=== PATIENT | female | born 1980 | race African-American/Black ===

== ENCOUNTER 2020-08-17 17:44 | Inpatient (IN) | payer OTHER ==
--- OUTSIDE RECORDS SUMMARY | 2020-08-17 20:03 | XMS ---
:1980 Author Organization [facility] Care Team Providers Name Role Phone NOREEN RAMOS Unavailable Unavailable Khloe De Luna Unavailable AMOS SILVA, WELLINGTON Unavailable AMOS SILVA, WELLINGTON Unavailable AMOS SILVA, WELLINGTON Unavailable AMOS SILVA, WELLINGTON Unavailable AMOS SILVA, WELLINGTON Unavailable OYEKOLA 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, MOBOLAJI Unavailable OYEKOLA 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, MOBOLAJI Unavailable OYEKOLA 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, MOBOLAJI Unavailable Marianne Taveras Unavailable AGYEPONG 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 Unavailable AGYEPONG 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 Unavailable Amelmah Unavailable Unavailable Amelmah Unavailable Unavailable Amelmah Unavailable Unavailable Amelmah Unavailable Unavailable GHULAM CNM Unavailable GHULAM CNM Unavailable CHRISTINA 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 Unavailable CHRISTINA 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 Unavailable MEAGHAN DDS Unavailable + ROSI DMD Unavailable + PETE MD Unavailable + PETE MD Unavailable + PETE MD Unavailable + JACK CNM Unavailable + DUANE 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 Unavailable + DUANE 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 Unavailable + BUCK MD Unavailable + PETE DIAZ Unavailable Unavailable Burrows Unavailable + JORDYN SHEA HY Unavailable + Re-disclosure Warning The records that you are about to access may contain information from federally- assisted alcohol or drug abuse programs. If such information is present, then the following federally mandated warning applies: This information has been disclosed to you from records protected by federal confidentiality rules (42 CFR part 2). The federal rules prohibit you from making any further disclosure of this information unless further disclosure is expressly permitted by the written consent of the person to whom it pertains or as otherwise permitted by 42 CFR part 2. A general authorization for the release of medical or other information is NOT sufficient for this purpose. The Federal rules restrict any use of the information to criminally investigate or prosecute any alcohol or drug abuse patient.The records that you are about to access may contain highly sensitive health information, the redisclosure of which is protected by Article 27-F of the [facility] Public Health law. If you continue you may haveaccess to information: Regarding HIV / AIDS; Provided by facilities licensed or operated by the [facility] Office of Mental Health; or Provided by the [facility] Office for People With Developmental Disabilities. If such information is present, then the following [facility] mandated warning applies: This information has been disclosed to you from confidential records which are protected by state law. State law prohibits you from making any further disclosure of this information without the specific written consent of the person to whom it pertains, or as otherwise permitted by law. Any unauthorized further disclosure in violation of state law may result in a fine or usp sentence or both. A general authorization for the release of medical or other information is NOT sufficient authorization for further disclosure. Allergies and Adverse Reactions Type Description Substance Reaction Status Data Source(s ) Allergy to No Known Allergies No known GREENW AY ([facility] substance allergies [facility] ) Allergy to No Known Allergies No known GREENW AY ([facility] substance allergies [facility] ([facility] ) Allergy to No Known Allergies No known GREENW AY ([facility] substance allergies [facility] ) Allergy to No Known Allergies No known GREENW AY ([facility] substance allergies [facility] ([facility] ) Allergy to No Known Allergies No known GREENW AY ([facility] substance allergies [facility] ) Allergy to No Known Allergies No known GREENW AY ([facility] substance allergies [facility] ([facility] ) Allergy to No Known Allergies No known GREENW AY ([facility] substance allergies [facility] ) Allergy to No Known Allergies No known GREENW AY ([facility] substance allergies [facility] ([facility] ) Allergy to No Known Allergies No known GREENW AY ([facility] substance allergies [facility] ([facility] ) Allergy to No Known Allergies No known GREENW AY ([facility] substance allergies [facility] ([facility] ) Allergy to No Known Allergies No known GREENW AY ([facility] substance allergies [facility] ([facility] ) Allergy to No Known Allergies No known GREENW AY ([facility] substance allergies [facility] ) Encounters Encounter Providers Location Date Indications Data Source(s ) Outpatient<td Attender: Douglas OverweightRisk: GREENW AY ([facility] ID="encounterT [facility] 0 Menstrual [place] ypeDescription [facility] 09:45:00 Irregularities Ne ighborhood ID0">[place]ALK[place]</ AM [facility] ter) td><td>MOBOLA I OYEKONJ [address] [facility]</td><td>Yo 10:18:06 nkers [facility]</td><td >12/30/2019</t d><td><content ID="encounterD iagnosisID0-0" >Risk: Menstrual Irregularities </content>, <content ID="encounterD iagnosisID0-1" >Overweight</c ontent></td> Overweight Risk: Menstrual Irregularities Outpatient<td Attender: Douglas 11/09/2019 VEE ID="encounterTypeDescriptionID2">DENTAL [facility] 10:00:0 0 AM (Susan Scherer RE-CALL VISIT</td><td>[facility] DDS Health EST - Neighborhood DDS</td><td>[facility] 11/09/2019 Health Center</td><td>11/09/2019</td><td></td> 11:59:0 0 PM Center) EST Outpatient<td Attender: Douglas 11/09/2019 VEE ID="enc[facility]TypeDescriptionID1[facility] (Susan Scherer ISIT</td><td>[facility] EST - Neighborhood Mjz</td><td>[facility] z Center 9 Health Health 11:59:00 PM Center) Center</td><td>11/09/2019</td><td></td> EST Outpatient<td Attender: Douglas 11/04/2019 O MARENGO ID="encounterTypeDescriptionID3">WALKINS [facility] 12:00: 00 PM v (Susan Scherer </td><td>[facility] EST - e Neighborhood 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</td><td>[facility] Health 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 Center 11/04/2019 r Health Center</td><td>11/04/2019</td><td><janeth 12:22: 30 PM w Center) nt ID="encounterDiagnosisID3-0">Routine EST e Pre-employment Screening i Examination</content>, <content g ID="encounterDiagnosisID3-1">Overweight< h /content></td> t R o u t i n e P r e - e m p l o y m e n t S c r e e n i n g E x a m i n a t i o n O v e r w e i g h t R o u t i n e P r e - e m p l o y m e n t S c r e e n i n g E x a m i n a t i o n Overweight Routine Pre-employment Screening Examina tion Overweight Routine Pre-employment Screening Examina tion Outpatient<td Attender: Douglas 09/23/2019 OverweightAnemiaOverweightAnemiaOverweightAnemia MARENGO ID="encounterTypeDescriptionID4">[place]</td><td>JANET WRIGHT [facility] 02:30:00 PM (Susan Scherer [employer] 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</td><td>[facility] ED T - Neighborhood Center</td><td>09/23/2019</td><td><content 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 Center 09/02 Health ID="encounterDiagnosisID4-0">Anemia</content>, <content 03:29:09 PM Center) ID="encounterDiagnosisID4-1">Overweight</content></td> EDT Overweight Anemia Overweight Anemia Overweight Anemia Outpatient<td Attender: Douglas 08/26/2019 MARENGO ID="encounterTypeDescriptionID5">WALKINS</td><td>AUSTIN JOHNSON [facility] 10:00:00 AM ([place] PETE SILVA</td><td>[facility] PETE SILVA Health EDT - Neighborhood Center</td><td>08/26/2019</td><td></td> Center [facility] Health 11:59:00 PM Center) EDT Outpatient Attender: Ankush 08/19/2019 [facility] 12:46:00 PM Medical PETE EDT Center VIAR dmitter: EMILY GAN eferrer: EMILY DIAZ Outpatient<td Attender: Douglas 07/30/2019 MARENGO ID="encounterTypeDescriptionID6">*OUTREACH*</td><td>[facility] 12:30:00 PM ([facility] 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</td><td>[facility] EDT - Neighborhood Center</td><td>07/30/2019</td><td></td> 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 Center [address] [place] [address] 11:59:00 PM Center) EDT Outpatient<td Attender: Douglas 07/29/2019 Joshua BAXTER ID="encounterTypeDescriptionID7">[place]</td><td>JANET WRIGHT [facility] 02:00:00 PM e ([facility] 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</td><td>[facility] ED T - u Neighborhood Center</td><td>07/29/2019</td><td><content 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 Center 07/03 k Health ID="encounterDiagnosisID7-0">Vitamin D 03:02:53 PM o Center) Deficiency</content>, <content EDT p ID="encounterDiagnosisID7-1">Routine Pre-employment e Screening Examination</content>, <content n ID="encounterDiagnosisID7-2">Leukopenia</content></td> i a R o u t i n e P r e - e m p l o y m e n t S c r e e n i n g E x a m i n a t i o n V i t a m i n D D e f i c i e n c y L e u k o p e n i a R o u t i n e P r e - e m p l o y m e n t S c r e e n i n g E x a m i n a t i o n V i t a m i n D D e f i c i e n c y L e u k o p e n i a R o u t i n e P r e - e m p l o y m e n t S c r e e n i n g E x a m i n a t i o n V i t a m i n D D e f i c i e n c y L e u k o p e n i a R o u t i n e P r e - e m p l o y m e n t S c r e e n i n g E x a m i n a t i o n V i t a m i n D D e f i c i e n c y L e u k o p e n i a R o u t i n e P r e - e m p l o y m e n t S c r e e n i n g E x a m i n a t i o n V i t a m i n D D e f i c i e n c y O v e r w e i g h t V i t a m i n D D e f i c i e n c y O t h e r S p e c i f i e d G e n e r a l M e d i c a l E x a m i n a t i o n s Leukopenia Routine Pre-employment Screening Examina tion Vitamin D Deficiency Leukopenia Routine Pre-employment Screening Examina tion Vitamin D Deficiency Leukopenia Routine Pre-employment Screening Examina tion Vitamin D Deficiency Leukopenia Routine Pre-employment Screening Examina tion Vitamin D Deficiency Leukopenia Routine Pre-employment Screening Examina tion Vitamin D Deficiency Overweight Vitamin D Deficiency Other Specified General Medical Examinat ions Outpatient<td Attender: Douglas 07/29/2019 MARENGO ID="encounterTypeDescriptionID8">SOFTWARE DEVELOPER MID LEVEL [facility] 12:00:00 P M ([place] ANNUAL</td><td>AUSTIN FREEMAN MD [facility] EDT - [facility] </td><td>[facility] 07/29/2019 Health Center</td><td>07/29/2019</td><td></td> 01:54:3 9 PM Center) EDT Outpatient<td Attender: Douglas 07/27/2019 MARENGO ID="encounterTypeDescriptionID9">*[facility] 12:58: 00 PM ([place] *</td><td[facility] 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</td><td>[facility] 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 Center 07/27/2019 Health Center</td><td>07/27/2019</td><td></td> 11:59:0 0 PM Center) EDT Outpatient<td Attender: Douglas 07/15/2019 Tyshawn BAXTER ID="[id number]">[facility] 11:15: 00 AM o ([facility]</td><td>[facility] EDT - u [facility] 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</td><td>[facility] 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 Center 07/15/2019 [facility]</td><td>07/15/2019</td><td><janeth 12:55: 43 PM i Center) nt ID="[id number]">Routine EDT n Pre-employment Screening e Examination</content></td> P r e - e m p l o y m e n t S c r e e n i n g E x a m i n a t i o n R o u t i n e P r e - e m p l o y m e n t S c r e e n i n g E x a m i n a t i o n R o u t i n e P r e - e m p l o y m e n t S c r e e n i n g E x a m i n a t i o n R o u t i n e P r e - e m p l o y m e n t S c r e e n i n g E x a m i n a t i o n R o u t i n e P r e - e m p l o y m e n t S c r e e n i n g E x a m i n a t i o n R o u t i n e P r e - e m p l o y m e n t S c r e e n i n g E x a m i n a t i o n R o u t i n e P r e - e m p l o y m e n t S c r e e n i n g E x a m i n a t i o n R o u t i n e P r e - e m p l o y m e n t S c r e e n i n g E x a m i n a t i o n R o u t i n e P r e - e m p l o y m e n t S c r e e n i n g E x a m i n a t i o n Routine Pre-employment Screening Examina tion Routine Pre-employment Screening Examina tion Routine Pre-employment Screening Examina tion Routine Pre-employment Screening Examina tion Routine Pre-employment Screening Examina tion Routine Pre-employment Screening Examina tion Routine Pre-employment Screening Examina tion Routine Pre-employment Screening Examina tion Routine Pre-employment Screening Examina tion Outpatient<td Attender: Douglas 03/10/2019 Routine Pre-employment MARENGO ID="[id number]">WALKINS</td><td>[facility] 11:30:00 AM Screening ([facility]</td><td>[facility]</td><td>03/10/2019</td><td><content 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 Center 03/10/2019 Pre-employment Screening Health ID="[id number]">Overweight</content>, 01:08:35 [facility] <content ID="[id number]">Routine EDT Pre-employment Screening Pre-employment Screening Examination</content></td> ExaminationOverweightRoutine Pre-employment Screening ExaminationOverweightRout ine Pre-employment Screening ExaminationOverweightRout ine Pre-employment Screening ExaminationOverweightRout ine Pre-employment Screening ExaminationOverweightRout ine Pre-employment Screening ExaminationOverweightRout ine Pre-employment Screening ExaminationOverweightRout ine Pre-employment Screening ExaminationOverweightRout ine Pre-employment Screening ExaminationOverweight Routine Pre-employment Screening Examina tion Overweight Routine Pre-employment Screening Examina tion Overweight Routine Pre-employment Screening Examina tion Overweight Routine Pre-employment Screening Examina tion Overweight Routine Pre-employment Screening Examina tion Overweight Routine Pre-employment Screening Examina tion Overweight Routine Pre-employment Screening Examina tion Overweight Routine Pre-employment Screening Examina tion Overweight Routine Pre-employment Screening Examina tion Overweight Routine Pre-employment Screening Examina tion Overweight Routine Pre-employment Screening Examina tion Overweight Outpatient<td Attender: Douglas 03/02/2019 MARENGO ID="[id number]">PATIENT Khloe [facility] 12:24 :00 PM ([place] ADVOCACY</td><td>[facility] EDT - [facility]</td><td>[facility] 2018 Health Center</td><td>03/02/2019</td><td></td> 11:59:0 0 PM Center) EDT Outpatient<td Attender: Douglas 03/02/2019 R MARENGO ID="[id number]">[facility] 10:1 5:00 AM o ([place] /td><td>[facility] EDT - [facility] 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</td><td>[facility] 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 Center 03/02/2019 Health Center</td><td>03/02/2019</td><td><content 12:1 6:59 PM i Center) ID="[id number]">Overweight</ EDT n content>, <content e ID="[id number]">Routine P Pre-employment Screening r Examination</content></td> e - e m p l o y m e n t S c r e e n i n g E x a m i n a t i o n O v e r w e i g h t R o u t i n e P r e - e m p l o y m e n t S c r e e n i n g E x a m i n a t i o n O v e r w e i g h t R o u t i n e P r e - e m p l o y m e n t S c r e e n i n g E x a m i n a t i o n O v e r w e i g h t R o u t i n e P r e - e m p l o y m e n t S c r e e n i n g E x a m i n a t i o n O v e r w e i g h t R o u t i n e P r e - e m p l o y m e n t S c r e e n i n g E x a m i n a t i o n O v e r w e i g h t R o u t i n e P r e - e m p l o y m e n t S c r e e n i n g E x a m i n a t i o n O v e r w e i g h t R o u t i n e P r e - e m p l o y m e n t S c r e e n i n g E x a m i n a t i o n O v e r w e i g h t R o u t i n e P r e - e m p l o y m e n t S c r e e n i n g E x a m i n a t i o n O v e r w e i g h t R o u t i n e P r e - e m p l o y m e n t S c r e e n i n g E x a m i n a t i o n O v e r w e i g h t R o u t i n e P r e - e m p l o y m e n t S c r e e n i n g E x a m i n a t i o n O v e r w e i g h t R o u t i n e P r e - e m p l o y m e n t S c r e e n i n g E x a m i n a t i o n O v e r w e i g h t R o u t i n e P r e - e m p l o y m e n t S c r e e n i n g E x a m i n a t i o n O v e r w e i g h t Routine Pre-employment Screening Examina tion Overweight Routine Pre-employment Screening Examina tion Overweight Routine Pre-employment Screening Examina tion Overweight Routine Pre-employment Screening Examina tion Overweight Routine Pre-employment Screening Examina tion Overweight Routine Pre-employment Screening Examina tion Overweight Routine Pre-employment Screening Examina tion Overweight Routine Pre-employment Screening Examina tion Overweight Routine Pre-employment Screening Examina tion Overweight Routine Pre-employment Screening Examina tion Overweight Routine Pre-employment Screening Examina tion Overweight Routine Pre-employment Screening Examina tion Overweight Outpatient<td Attender: Douglas 02/20/2019 MARENGO ID="[id number]">DENTALVISIT</td><td>Marianne Lopes [facility] 12:45:00 PM ([place] Alexsandra TejaIsma</td><td>[facility] EDT - Neighborhood Center</td><td>02/20/2019</td><td></td> Center 019 Health 11:59:00 PM Center) EDT Outpatient<td ID="[id number]">DENTAL Attender: Douglas 02/20/2019 VEE RE-CALL VISIT</td><td>[facility] 12 :30:00 PM ([place] DMD</td><td>[facility] EDT - Neighborhood Center</td><td>02/20/2019</td><td></td> [place] DMD Center 019 Health 11:59:00 PM Center) EDT Outpatient<td ID="[id number]">*No Attender: Douglas 10/28/2018 VEE Show*</td><td>Francisca Carde</td><td>[facility] 10:50:00 AM [facility]</td><td>10/28/2018</td><td></td> [facility] Center 10/28/2018 Health 11:59:00 PM Center) EST Outpatient<td ID="[id number]">OFFICE Attender: Douglas 09/26/2018 O [place]EN[place] VISIT</td><td>[facility] JEANNETTE 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</td><td>[facility] 10:30:00 AM v ([facility]</td><td>09/26/2018</td><td><content OYEKira UNDERWOODA [facility] Health EDT - e Neighborhood ID="[id number]">Overweight</content></td> Ce nter 09/26/2018 r Health 01:32:17 PM w Center) EDT e i g h t O v e r w e i g h t O v e r w e i g h t O v e r w e i g h t O v e r w e i g h t O v e r w e i g h t O v e r w e i g h t O v e r w e i g h t O v e r w e i g h t O v e r w e i g h t O v e r w e i g h t O v e r w e i g h t Overweight Overweight Overweight Overweight Overweight Overweight Overweight Overweight Overweight Overweight Overweight Overweight Outpatient<td Attender: Douglas 09/24/2018 MARENGO ID="[id number]">WALKINS</td><td>[facility] 12:00:00 PM ([facility]</td><td>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 Attender: Douglas 09/17/2018 [place] ANNUAL</td><td>AUSTIN FREEMAN MD</td><td>Douglas watkins 10:30:00 AM ([facility]</td><td>09/17/2018</td><td></td> [facility] 09/17/2018 Health 12:33:59 PM Center) EDT Outpatient<td Attender: Douglas 09/12/2018 O MARENGO ID="[id number]">WALKINS</td><td>JARED WRIGHT [facility] 09:15:00 AM v ([place] I ANA LUISAKONJ 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</td><td>[facility] EDT - e Neighborhood Center</td><td>09/12/2018</td><td><content 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 Center 09/01 r Health ID="[id number]">Overweight</content></td> 10:24:14 AM w Center) EDT e i g h t O v e r w e i g h t O v e r w e i g h t O v e r w e i g h t O v e r w e i g h t O v e r w e i g h t O v e r w e i g h t O v e r w e i g h t O v e r w e i g h t O v e r w e i g h t O v e r w e i g h t O v e r w e i g h t Overweight Overweight Overweight Overweight Overweight Overweight Overweight Overweight Overweight Overweight Overweight Overweight Outpatient<td Attender: Douglas 07/17/2018 LeukopeniaLeukopeniaLeukopeniaLeukopeniaLeukopeniaLeukopeniaLeukopeniaLeukopenia LeukopeniaLeukopeniaLeukopeniaLeukopenia VEE ID="[id number]">WALKINS</td><td>[facility] 11:00:00 AM ([facility]</td><td>[facility] E DT - Neighborhood Center</td><td>07/17/2018</td><td><content 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 Center 07/02 Health ID="[id number]">Leukopenia</content></td> 12:11:01 PM Center) EDT Leukopenia Leukopenia Leukopenia Leukopenia Leukopenia Leukopenia Leukopenia Leukopenia Leukopenia Leukopenia Leukopenia Leukopenia Outpatient<td Attender: Douglas 07/15/2018 VEE ID="[id number]">*OUTREACH*</td><td>[facility] 06:12:00 PM ([facility]</td><td>[facility] E DT - Neighborhood Center</td><td>07/15/2018</td><td></td> 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 Center [address] [place] [address] 11:59:00 PM Center) EDT Outpatient<td Attender: Douglas 07/15/2018 MARENGO ID="[id number]">DENTALVISIT</td><td>RADHAMEAGHAN LEON A [facility] 04:00:00 PM ([facility] DENT HY</td><td>[facility] EDT - Neighborhood Center</td><td>07/15/2018</td><td></td> DENT HY Center [address] [place] [address] 11:59:00 PM Center) EDT Outpatient<td Attender: Douglas 07/14/2018 U MARENGO ID="[id number]">WALKINS</td><td>BALA MCKENNA [facility] 11:00:00 AM r ([facility] 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</td><td>[facility] E DT - i Neighborhood Center</td><td>07/14/2018</td><td><content 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 Center 07/02 Health ID="[id number]">Urinary Tract 12: 40:49 PM a Center) Infection</content></td> EDT r y T r a c t I n f e c t i o n U r i n a r y T r a c t I n f e c t i o n U r i n a r y T r a c t I n f e c t i o n U r i n a r y T r a c t I n f e c t i o n U r i n a r y T r a c t I n f e c t i o n U r i n a r y T r a c t I n f e c t i o n U r i n a r y T r a c t I n f e c t i o n U r i n a r y T r a c t I n f e c t i o n U r i n a r y T r a c t I n f e c t i o n U r i n a r y T r a c t I n f e c t i o n U r i n a r y T r a c t I n f e c t i o n U r i n a r y T r a c t I n f e c t i o n Urinary Tract Infection Urinary Tract Infection Urinary Tract Infection Urinary Tract Infection Urinary Tract Infection Urinary Tract Infection Urinary Tract Infection Urinary Tract Infection Urinary Tract Infection Urinary Tract Infection Urinary Tract Infection Urinary Tract Infection Outpatient<td Attender: Douglas 07/11/2018 MARENGO ID="[id number]">*OUTREACH*</td><td>[facility] 04:47:00 PM ([facility]</td><td>[facility] E DT - Neighborhood Center</td><td>07/11/2018</td><td></td> 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 [address] [place] [address] 11:59:00 PM Center) EDT Outpatient<td ID="[id number]">COMPLETE Attende r: Douglas 07/11/2018 R [place] PHYSICAL EXAM</td><td>[facility]</td><td>[facility] 09:00:00 AM o ([facility]</td><td>07/11/2018</td><td><[facility] EDT - u Neighborhood ID="[id number]">Routine Pre-employment 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 Cente r 07/11/2018 t Health Screening Examination</content></td> 11:17:24 A M i [place]) EDT n e P r e - e m p l o y m e n t S c r e e n i n g E x a m i n a t i o n R o u t i n e P r e - e m p l o y m e n t S c r e e n i n g E x a m i n a t i o n R o u t i n e P r e - e m p l o y m e n t S c r e e n i n g E x a m i n a t i o n R o u t i n e P r e - e m p l o y m e n t S c r e e n i n g E x a m i n a t i o n R o u t i n e P r e - e m p l o y m e n t S c r e e n i n g E x a m i n a t i o n R o u t i n e P r e - e m p l o y m e n t S c r e e n i n g E x a m i n a t i o n R o u t i n e P r e - e m p l o y m e n t S c r e e n i n g E x a m i n a t i o n R o u t i n e P r e - e m p l o y m e n t S c r e e n i n g E x a m i n a t i o n R o u t i n e P r e - e m p l o y m e n t S c r e e n i n g E x a m i n a t i o n R o u t i n e P r e - e m p l o y m e n t S c r e e n i n g E x a m i n a t i o n R o u t i n e P r e - e m p l o y m e n t S c r e e n i n g E x a m i n a t i o n R o u t i n e P r e - e m p l o y m e n t S c r e e n i n g E x a m i n a t i o n Routine Pre-employment Screening Examina tion Routine Pre-employment Screening Examina tion Routine Pre-employment Screening Examina tion Routine Pre-employment Screening Examina tion Routine Pre-employment Screening Examina tion Routine Pre-employment Screening Examina tion Routine Pre-employment Screening Examina tion Routine Pre-employment Screening Examina tion Routine Pre-employment Screening Examina tion Routine Pre-employment Screening Examina tion Routine Pre-employment Screening Examina tion Routine Pre-employment Screening Examina tion Outpatient<td Attender: Douglas 07/09/2018 MARENGO ID="[id number]">WALKINS</td><td>[facility] 11:30[facility]00 AM ([facility] 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</td><td>[facility] E DT - [facility]</td><td>07/09/2018</td><td></td> 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 [place] [address] [place] [address] 04:48:57 PM Center) EDT Outpatient<td ID="[id number]">*No Attender: Douglas 06/28/2018 MARENGO Show*</td><td>WELLINGTON TRINIDAD MD</td><td>[facility] 01:[facility] PM ([facility]</td><td>06/28/2018</td><td></td> AMOS [facility] 06/28/2018 Health 11:59:00 PM Center) EDT Outpatient<td ID="[id number]">DENTAL Attender: Douglas 06/19/2018 MARENGO INITIAL VISIT</td><td>AYE HARDING DDS</td><td>[facility] 12:30:00 PM ([facility]</td><td>06/19/2018</td><td></td> MEAGHAN PETTY [facility] 06/19/2018 Health 11:59:00 PM Center) EDT Outpatient<td Attender: Douglas 06/14/2018 MARENGO ID="[id number]">[place] [address] 1:00:00 AM ([facility]</td><td>WELLINGTON TRINIDAD MD</td><[facility]</td><td>06/14/2018</td><td></td> MD [place] 06/14/2018 Health 11:59:00 PM Center) EDT Outpatient<td ID="[id number]">OFFICE Attender: Douglas 05/30/2018 VEE VISIT</td><td>HERMAN [facility]</td><td>[facility] 10:00:00 AM ([facility]</td><td>05/30/2018</td><td></td> GHULAM CNM H ealt EDT - [facility] 05/30/2018 Health 03:32:25 PM Center) EDT Outpatient<td Attender: Douglas 04/30/2018 VEE ID="[id number]">[place]</td><td>[facility] 11:15:00 AM ([facility]</td><td>[facility] ED T [facility]</td><td>04/30/2018</td><td></td> Center [address] [place] [address] 12:22:40 PM Center) EDT Outpatient<td Attender: Douglas 04/18/2018 VEE ID="[id number]">[place]</td><td>[facility] 11:15:00 AM ([facility] GHULAM CN</td><td>[facility] Health ED T [facility]</td><td>04/18/2018</td><td></td> Center [address] [place] [address] 02:29:55 PM Center) EDT Outpatient<td ID="[id number]">HOSPITAL Attende r: Jessenia 04/12/2018 VEE DELIVERY</td><td>SIDNEY OSEI MD</td><td>[facility] 09:44:00 AM ([facility] EDT [facility]</td><td>04/12/2018</td><td></td> Medical [address] [place] [address] Center 11:59:00 PM Center) EDT Outpatient<td Attender: Douglas 04/10/2018 VEE ID="[id number]">[place]</td><td>JJ SPRINGER [facility] 12:00:00 PM (Susan LUNA GHULAM CNM</td><td>[facility] GHULAM CNM [facility] ED T - Neighborhood Center</td><td>04/10/2018</td><td></td> Center [facility] Health 01:34:08 PM Center) EDT Outpatient<td Attender: 04/08/2018 VEE ID="[id number]">*Phone*</td><td>LORRAI HERMAN 12:34:00 PM (uSsan LUNA GHULAM CNM</td><td> GHULAM CN EDT - [facility] </td><td>04/08/2018</td><td></td> 04/08/2018 Health 11:59:00 PM Center) EDT Outpatient<td ID="[id number]">*No Attender: 04/07/2018 VEE Show*</td><td>HERMAN GHULAM CNM</td><td> HERMAN 03:18: 00 PM (Susan Scherer </td><td>04/07/2018</td><td></td> GHULAM CN EDT - Neighborhood 04/07/2018 Health 11:59:00 PM Center) EDT Outpatient<td Attender: Douglas 03/24/2018 VEE ID="[id number]">[place]</td><td>MYNORI GIAN [facility] 12:30:00 PM (Susan LUNA GHULAM CNM</td><td>[facility] Health ED T - Neighborhood Center</td><td>03/24/2018</td><td></td> Center [facility] Health 01:12:02 PM Center) EDT Outpatient<td Attender: Douglas 03/13/2018 VEE ID="[id number]">[place]</td><td>[facility] 01:00:00 PM ([facility] CN</td><td>[facility] Health T - Neighborhood Center</td><td>03/13/2018</td><td></td> Center [address] [place] [address] 01:43:38 PM Center) EDT Outpatient<td Attender: Douglas 01/30/2018 VEE ID="[id number]">NUTRITION INITIAL [facility] 01:30:00 PM ([place] VISIT</td><td>[facility]</td><td>[facility]</td><td>01/30/2018</td><td></td> C enter 01/30/2018 [facility] 02:28:04 PM Center) EST Outpatient<td Attender: Douglas 01/27/2018 VEE ID="[id number]">[place]</td><td>[facility] 12:30:00 PM ([facility]</td><td>[facility]</td><td>01/27/2018</td><td></td> Center [address] [place] [address] 01:50:28 PM Center) EST Outpatient<td Attender: Douglas 01/10/2018 MARENGO ID="[id number]">[place]</td><td>[facility] 09:30:00 AM ([facility] CNM</td><td>[facility]</td><td>01/10/2018</td><td></td> Center 018 [facility] 10:59:17 AM Center) EST Outpatient<td ID="[id number]"> Attende r: Douglas 12/03/2017 MAR[place] SONOGRAM</td><td>RADHA BUCK MD</td><td>[facility] 10:30:00 AM ([facility]</td><td>12/03/2017</td><td></td> [facility] 12/[facility]2017 Health 12:06:55 PM Center) EST Outpatient<td ID="[id number]"> Attende r: Douglas 11/27/2017 VEE FOLLOW UP</td><td>HERMAN GHULAM CNM</td><td>[facility] 12:30:00 PM ([facility]</td><td>11/27/2017</td><td></td> GHULAM CNM [facility] 11/27/2017 Health 01:38:21 PM Center) EST Obstetrics<td ID="[id number]"> Attende r: Douglas 11/22/2017 P VEE FOLLOW UP</td><td>AUSTIN FREEMAN MD</td><td>[facility] 10:00:00 AM r ([facility] PETE SILVA [facility] EST - e [facility]</td><td>11/22/2017</td><td><content Center 11/02 Health ID="[id number]"></content></td> 12:31:01 PM n [place]) EST a n c y P r e g n a n c y P r e g n a n c y P r e g n a n c y P r e g n a n c y P r e g n a n c y P r e g n a n c y P r e g n a n c y P r e g n a n c y P r e g n a n c y P r e g n a n c y P r e g n a n c y Outpatient<td Attender: Douglas 11/11/2017 VEE ID="[id number]">[place]</td><td>[facility] 12:00:00 PM ([place] GHULAM CNM</td><td>[facility]</td><td>11/11/2017</td><td></td> Center [address] [place] [address] 11:59:00 PM Center) EST Outpatient<td Attender: Douglas 11/11/2017 VEE ID="[id number]">[place]</td><td>HERMAN RODRIRA [facility] 12:00:00 PM ([facility] CNM</td><td>[facility] EST - Neighborhood [facility]</td><td>11/11/2017</td><td></td> Center [address] [place] [address] 02:09:33 PM Center) EST Outpatient<td ID="[id number]"> Attende r: Douglas 10/31/2017 [place] FOLLOW UP</td><td>HERMAN GHULAM CNM</td><td>[facility] 12:30:00 PM ([facility]</td><td>10/31/2017</td><td></td> GHULAM CNM H ealth EST - Neighborhood Center 10/31/2017 Health 01:47:13 PM Center) EST Outpatient<td ID="[id number]">COMPLETE Attende r: Douglas 10/30/2017 MAR[place] PHYSICAL EXAM</td><td>[facility] 01:00 :00 PM ([facility]</td><td>[facility] EST [facility]</td><td>10/30/2017</td><td></td> 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 [address] [place] [address] 03:01:32 PM Center) EST Outpatient<td Attender: Douglas 09/18/2017 VEE ID="[id number]">[place]</td><td>HERMAN [facility] 12:30:00 PM ([place] GHULAM CNM</td><td>[facility] GHULAM CNM [facility] EDT - [facility]</td><td>09/18/2017</td><td></td> [facility] Health 01:53:10 PM Center) EDT Outpatient<td ID="[id number]">1st Attender: Douglas 09/03/2017 VEE </td><td>HERMAN GHULAM CNM</td><td>[facility] 01:30:00 PM ([facility]</td><td>09/03/2017</td><td></td> GHULAM CNM H ealt EDT - [facility] 09/03/2017 Health 02:55:00 PM Center) EDT Outpatient<td ID="[id number]"> Attende r: Douglas 09/03/2017 VEE SONOGRAM</td><td>RADHA BUCK MD</td><td>[facility] 12:00:00 PM ([facility]</td><td>09/03/2017</td><td></td> HEBER SILVA [facility] EDT - [facility] 09/03/2017 Health 11:59:00 PM Center) EDT Outpatient<td ID="[id number]">*Chart Attender: Douglas 09/02/2017 VEE Update*</td><td>HERMAN GHULAM CNM</td><td>[facility] 01:16:00 PM ([facility]</td><td>09/02/2017</td><td></td> GHULAM CNM [facility] EDT - [facility] Center 09/02/2017 Health 11:59:00 PM Center) EDT Outpatient<td ID="[id number]">NURSE Attender: Douglas 09/02/2017 VEE SCREENING</td><td>HERMAN GHULAM CNM</td><td>[facility] 12:30:00 PM ([facility]</td><td>09/02/2017</td><td></td> GHULAM CNM H ealt EDT - Neighborhood Center 09/02/2017 Health 04:12:11 PM Center) EDT Outpatient<td Attender: [place] 09/02/2017 MARENGO ID="[id number]">[place]</td><td>HERMAN LOWE [facility] 10:45:00 AM ([place] GHULAM CNM</td><td>[facility] EDT - [facility]</td><td>09/02/2017</td><td></td> Center [facility] Health 04:58:34 PM Center) EDT Immunizations Vaccine Date Status Description Data Source(s) IIV3. This 09/23/2019 completed Influenza 2 09/23/2019 Left Active [facility] is one of 03:27:00 PM Deltoid (Administered) Neighborhood ([facility] Neighborhood replacing [facility] ) which is being retired. IIV3. This 01/10/2018 completed Influenza 1 01/10/2018 Right Active [facility] is one of 11:42:00 AM Deltoid (Administered) Neighborhood ([facility] Neighborhood replacing [facility], [facility] ) which is being retired. TB Skin 11/11/2017 completed PPD TB 2 11/11/2017 Left Active [facility] unt [place] test is 01:37:00 PM TST Lower (Administered) Nei ghborhood ([facility] vaccine. [facility]) TB Skin 10/31/2017 completed PPD TB 1 10/31/2017 Right Active Mo unt [facility] test is 01:45:00 PM TST Lower (Administered) Nei ghborhood ([facility] vaccine. [facility]) Medications Medication Brand Start Product Dose Route Administrative Pharmacy St atus Indications Reaction Description Data Name Date Form Instructions Instructions Source(s) ferrous Ferrou 09/23/ UNIT 1 active Ferrous GRE ENWAY sulfate 325 s 2019 Sulfate (Moun t MG Oral Sulfat 12:00: [place] Tablet e 325 00 AM Neighbor Ferrous (65 EDT od Health Sulfate 325 Fe)MG Center) (65 Fe)MG Oral Oral Tablet Tablet [facility] Vitamin CVS 07/29/ UNIT 1 active CVS Vitam in VEE D3 1000UNIT Vitami 2019 D3 ([place] Oral Tablet n D3 12:00: [place] Chewable 1000UN 00 AM Neighbor ho IT EDT od Health Oral Center) Tablet Chewab le Amoxicillin Amoxic 07/14/ UNIT 1 complet Amoxic illin VEE 500 MG Oral illin 2018 ed ([place] Tablet 500MG 12:00: [place] Amoxicillin Oral 00 AM Neighbo rho 500MG Oral Tablet EDT od Heal th Tablet Center) Betadine 5% Betadi 04/18/ CAPFUL active Betad ine VEE External ne 5% 2018 DOSING ([place] Solution Office Assistant 12:00: UNIT [place] al 00 AM Neighborho Soluti EDT od Health on Center) Prenat 03/13/ UNIT 1 complet VEE 28-0.8MG al 2018 ed ([place] Oral Tablet 28-0.8 12:00: [employer] on MG 00 AM Neighbor Oral EDT od Health Tablet Center) Prenat 09/18/ UNIT 1 complet VEE 28-0.8MG al 2017 ed ([place] Oral Tablet 28-0.8 12:00: [employer] on MG 00 AM Neighbor Oral EDT od Health Tablet Center) CVS Iron CVS 09/18/ UNIT 1 complet [facility]S Iron GR EENWAY 325 (65 Iron 2016 ed ([place] Fe)MG Oral 325 12:00: [place] Tablet (65 00 AM Neighborho Fe)MG EDT od Health Oral Center) Tablet Insurance Providers Payer name Policy type / Policy ID Covered Covered alliance party's Policy Plan Coverage type alliance party ID relationship to [place] Information mcconnell [facility] [id number] CARE [place] Care Individual 0 Self 0 [place] Policy Ze Care Individual 0 Self 0 [place] Policy [place] Individual 0 Self 0 [place] Policy Ze Care Individual 0 Self 0 [place] Policy ZE W [id number] 01 [id number] [place] Individual 0 Self 0 [place] Policy [place] Individual 0 Self 0 [place] Policy [place] Individual 0 Self 0 [place] Policy Ze Care Individual 0 Self 0 [place] Policy Ze Care Individual 0 Self 0 [place] Policy [place] Individual 0 Self 0 [place] Policy [place] Individual 0 Self 0 [place] Policy [place] Individual 0 Self 0 [place] Policy [place] [id number] S [id number] Family Planning MKD & EP 3 & 4 Only Jono Vision [id number] S [id number] MKD Dental [id number] S [id number] Dentaquest MKD Medicaid [id number] S [id number] Regular Clinic Visit Ze Care [id number] S [id number] [place] Problems, Conditions, and Diagnoses Code Display Name Description Problem Type Effective Data Sour ce(s) Dates [id number] Possible Varicella Possible Problem 09/02/2017 DAGOBERTOMarcelo AY ([place] Susceptibility (no Varicella 12:00:00 AM Verno n Prior History) Susceptibility EDT - Neighb orhood (no Prior 06/02/2018 Health Center) History) 12:00:00 AM EDT [id number] Possible Varicella Possible Problem 09/02/2017 SUSANNAH AY ([place] Susceptibility (no Varicella 12:00:00 AM Verno n Prior History) Susceptibility EDT - Neighb orhood (no Prior 06/02/2018 Health Center) History) 12:00:00 AM EDT [id number] Possible Varicella Possible Problem 09/02/2017 SUSANNAH AY ([place] Susceptibility (no Varicella 12:00:00 AM Verno n Prior History) Susceptibility EDT - Neighb orhood (no Prior 06/02/2018 Health Center) History) 12:00:00 AM EDT [id number] Possible Varicella Possible Problem 09/02/2017 GREENMarcelo AY ([place] Susceptibility (no Varicella 12:00:00 AM Verno n Prior History) Susceptibility EDT - Neighb orhood (no Prior 06/02/2018 Health Center) History) 12:00:00 AM EDT [id number] Possible Varicella Possible Problem 09/02/2017 GREENMarcelo AY ([place] Susceptibility (no Varicella 12:00:00 AM Verno n Prior History) Susceptibility EDT - Neighb orhood (no Prior 06/02/2018 Health Center) History) 12:00:00 AM EDT [id number] Possible Varicella Possible Problem 09/02/2017 SUSANNAH AY ([place] Susceptibility (no Varicella 12:00:00 AM Verno n Prior History) Susceptibility EDT - Neighb orhood (no Prior 06/02/2018 Health Center) History) 12:00:00 AM EDT [id number] Possible Varicella Possible Problem 09/02/2017 GREENMarcelo AY ([place] Susceptibility (no Varicella 12:00:00 AM Verno n Prior History) Susceptibility EDT - Neighb orhood (no Prior 06/02/2018 Health Center) History) 12:00:00 AM EDT [id number] Possible Varicella Possible Problem 09/02/2017 GREENMarcelo AY ([place] Susceptibility (no Varicella 12:00:00 AM Verno n Prior History) Susceptibility EDT - Neighb orhood (no Prior 06/02/2018 Health Center) History) 12:00:00 AM EDT [id number] Possible Varicella Possible Problem 09/02/2017 SUSANNAH AY ([place] Susceptibility (no Varicella 12:00:00 AM Verno n Prior History) Susceptibility EDT - Neighb orhood (no Prior 06/02/2018 Health Center) History) 12:00:00 AM EDT [id number] Possible Varicella Possible Problem 09/02/2017 SUSANNAH AY ([place] Susceptibility (no Varicella 12:00:00 AM Verno n Prior History) Susceptibility EDT - Neighb orhood (no Prior 06/02/2018 Health Center) History) 12:00:00 AM EDT [id number] Possible Varicella Possible Problem 09/02/2017 SUSANNAH AY ([place] Susceptibility (no Varicella 12:00:00 AM Verno n Prior History) Susceptibility EDT - Neighb orhood (no Prior 06/02/2018 Health Center) History) 12:00:00 AM EDT [id number] Possible Varicella Possible Problem 09/02/2017 SUSANNAH AY ([place] Susceptibility (no Varicella 12:00:00 AM Vern[place] n Prior History) Susceptibility EDT - Neighb orhood (no Prior 06/02/2018 Health Center) History) 12:00:00 AM EDT [id number] , Problem 07/02/2017 VEE (Moun t function 12:00:00 AM [place] (observable EDT - Neighborhood entity) 06/02/2018 Health Center) 12:00:00 AM EDT [id number] , Problem 07/02/2017 VEE (Moun t function 12:00:00 AM [place] (observable EDT - Neighborhood entity) 06/02/2018 Health Center) 12:00:00 AM EDT [id number] , Problem 07/02/2017 VEE (Moun t function 12:00:00 AM [place] (observable EDT - Neighborhood entity) 06/02/2018 [facility]) 12:00:00 AM EDT [id number] , Problem 07/02/2017 VEE (Moun t function 12:00:00 AM [place] (observable EDT - Neighborhood entity) 06/02/2018 [facility]) 12:00:00 AM EDT [id number] , Problem 07/02/2017 VEE (Moun t function 12:00:00 AM [place] (observable EDT - Neighborhood entity) 06/02/2018 [facility]) 12:00:00 AM EDT [id number] , Problem 07/02/2017 VEE (Moun t function 12:00:00 AM [place] (observable EDT - Neighborhood entity) 06/02/2018 [facility]) 12:00:00 AM EDT [id number] , Problem 07/02/2017 VEE (Moun t function 12:00:00 AM [place] (observable EDT - Neighborhood entity) 06/02/2018 [facility]) 12:00:00 AM EDT [id number] , Problem 07/02/2017 VEE (Moun t function 12:00:00 AM [place] (observable EDT - Neighborhood entity) 06/02/2018 [facility]) 12:00:00 AM EDT [id number] , Problem 07/02/2017 MARENGO (Moun t function 12:00:00 AM [place] (observable EDT - Neighborhood entity) 06/02/2018 [facility]) 12:00:00 AM EDT [id number] , Problem 07/02/2017 VEE (Moun t function 12:00:00 AM [place] (observable EDT - Neighborhood entity) 06/02/2018 [facility]) 12:00:00 AM EDT [id number] , Problem 07/02/2017 VEE (Moun t function 12:00:00 AM [place] (observable EDT - Neighborhood entity) 06/02/2018 [facility]) 12:00:00 AM EDT [id number] , Problem 07/02/2017 VEE (Moun t function 12:00:00 AM [place] (observable EDT - Neighborhood entity) 06/02/2018 Health Center) 12:00:00 AM EDT Z12.39 Encounter for ENCOUNTER FOR OTH Diagnosis 08/19/2019 Caitlin gino Starrs other screening SCREENING FOR 12:46:00 PM Medic wi Center for malignant MALIGNANT EDT neoplasm of breast NEOPLASM OF BREAST Z32.02 Encounter for Encounter for Diagnosis 01/30/2019 VEE ([facility] test, test, 03:42:26 PM [place] non result negative result negative [facility]) Z12.4 Encounter for Encounter for Diagnosis 01/30/2019 VEE ([facility] screening for screening for 03:42:26 PM [place] malignant neoplasm malignant EST Neighb orhood of cervix neoplasm of [facility] ) cervix Z11.3 Encounter for Encntr screen for Diagnosis 01/30/2019 GEM COLLADO ([facility] screening for infections w sexl 03:42:26 PM [place] non infections with a mode of transmiss [facility] Cent er) sexual mode of transmission Z01.411 Encounter for Encntr for ferry hand Diagnosis 01/30/2019 JESSICA Morales ([facility] gynecological exam (general) 03:42:26 PM [place] examination (routine) w [facility] (general) abnormal findings [facility]) (routine) with abnormal findings Surgeries/Procedures Procedure Description Date Indications Data Source(s) No prior serious No prior serious 12/30/2019 JESSICA Morales ([facility] illness illness 12:00:00 AM [facility]) Date of last Date of last 12/30/2019 VEE ([facility] menstruation menstruation 12:00:00 AM [place] [facility] 11/08/2019 11/08/2019 [facility]) ORAL HYGIENE ORAL HYGIENE 11/09/2019 VEE ([facility] INSTRUCTION INSTRUCTION 12:00:00 AM [facility]) Periodic Oral Exam - Periodic Oral Exam - 11/09/2019 VEE ([facility] MKD WRAP MKD WRAP 12:00:00 AM [facility]) PERIODIC ORAL EXAM PERIODIC ORAL EXAM 11/09/2019 SHARRI CUMMINGS ([facility] 12:00:00 AM [facility]) INTRAORAL PERIAPICAL INTRAORAL PERIAPICAL 11/09/2019 VEE ([facility] FIRST FLIM FIRST FLIM 12:00:00 AM [facility]) BITEWINGS-FOUR FILMS BITEWINGS-FOUR FILMS 11/09/2019 VEE ([place] 12:00:00 AM [facility]) INTRAORAL EACH INTRAORAL EACH 11/09/2019 [place] (M ount ADDITIONAL ADDITIONAL 12:00:00 AM [facility]) ADULT PROPHYLAXIS ADULT PROPHYLAXIS 11/09/[address] ([place] 12:00:00 AM [facility]) Forms complete Forms complete 11/04/2019 VEE (M ount 12:00:00 AM [facility]) Sign language or oral Sign language or Oral 11/04/2019 [place] ([facility] interpretive Interpretation per 15 12:00:00 AM [facility] services, per 15 Minutes [facility] er) minutes No prior serious No prior serious 11/04/2019 [place] Y ([facility] illness illness 12:00:00 AM [facility]) No prior serious No prior serious 09/25/2019 [facility] ([facility] illness illness 12:00:00 AM [facility]) Bmi is documented BMI > NORMAL 09/23/2019 [place] ([facility] above normal DOCUMENTED W F/U PLAN 12:00:00 AM [facility] parameters and a [facility] er) follow-up plan is documented Sign language or oral Sign language or Oral 09/23/2019 [place] ([facility] interpretive Interpretation per 15 12:00:00 AM [facility] services, per 15 Minutes [facility] er) minutes IMMUNIZATION ADMIN, IMMUNIZATION ADMIN, 09/23/[address] ([place] >18 1 VACCINE >18 1 VACCINE 12:00:00 AM [facility] INFLUENZA VACCINE >3 INFLUENZA VACCINE >3 09/23/2019 VEE ([facility] YRS YRS 12:00:00 AM [facility]) Patient Left without Patient Left without 08/26/2019 VEE ([facility] Seen Seen 12:00:00 AM [facility]) No prior serious No prior serious 07/30/2019 [place] Y ([facility] illness illness 12:00:00 AM [facility]) Forms complete Forms complete 07/29/2019 VEE (M [place]unt 12:00:00 AM [facility]) VDRL (RPR) VDRL (RPR) 07/29/2019 VEE ([place] 12:00:00 AM [facility]) HIV 1/2 ANTIGEN & HIV 1/2 ANTIGEN & 07/29/[address] ([place] ANTIBODIES, 4TH ANTIBODIES, 4TH 12:00:00 AM [place] GENERATION W/REFLEXES GENERATION W/REFLEXES [facility]) Sign language or oral Sign language or Oral 07/29/2019 VEE ([facility] interpretive Interpretation per 15 12:00:00 AM [facility] services, per 15 Minutes [facility] er) minutes Result: normal Result: normal 07/29/2019 [place] (M ount 12:00:00 AM [facility]) comments: comments: 2 07/29/2019 VEE ([place] 2 NSD.LNSD 1year ago NSD.LNSD 1year ago 12:00:00 AM [facility]) Para 2 Para 2 07/29/2019 [place] ([facility] 12:00:00 AM [facility]) LMP: 07/23/2019 LMP: 07/23/2019 07/29/2019 VEE (M [place]unt 12:00:00 AM [facility]) Last pap smear date Last pap smear date 07/29/2019 G [place] ([facility] 2017 2017 12:00:00 AM [facility]) 3 3 07/29/2019 [place] ([facility] 12:00:00 AM [facility]) Contraception: Contraception: Condom 07/29/2019 [place] ([facility] Condom 12:00:00 AM [facility]) Aborta 1 Aborta 1 07/29/2019 VEE ([facility] 12:00:00 AM [facility]) Denies medical Denies medical 07/29/2019 [place] (M [place] problem. Denies any problem. Denies any 12:00:00 AM [facility] venereal diseases. venereal diseases. EDT [facility]) Denies Abnormal Pap Denies Abnormal Pap smear or HPV smear or HPV Sign language or oral Sign language or Oral 07/15/2019 VEE ([facility] interpretive Interpretation per 15 12:00:00 AM [facility], per 15 Minutes [facility] er) minutes VISUAL ACUITY SCREEN VISUAL ACUITY SCREEN 07/15/2019 [place] ([place] 12:00:00 AM [facility]) History of Eyes: History of Eyes: 07/15/2019 [place] Y ([place] normal normal 12:00:00 AM [facility]) No prior serious No prior serious 07/15/2019 [place] Y ([facility] illness illness 12:00:00 AM [facility]) Bmi documented BMI OUTSIDE NORMAL 03/10/2019 [place] Y ([place] outside normal RANGE - NO F/U PLAN 12:00:00 AM [facility] parameters, no [facility] ) follow-up plan documented, no reason given Forms complete Forms complete 03/10/2019 [place] (M ount 12:00:00 AM [facility]) Sign language or oral Sign language or Oral 03/10/2019 [place] ([facility] interpretive Interpretation per 15 12:00:00 AM [facility] services, per 15 Minutes [facility] er) minutes Sign language or oral Sign language or Oral 03/02/2019 [place] ([facility] interpretive Interpretation per 15 12:00:00 AM [facility] services, per 15 Minutes [facility] er) minutes Date of last Date of last 03/02/2019 [place] ([facility] menstruation menstruation 02/11/2019 12:00:00 AM [facility] 02/11/2019 [facility]) Bmi is documented BMI > NORMAL 03/02/2019 [place] ([facility] above normal DOCUMENTED W F/U PLAN 12:00:00 AM [facility] parameters and a [facility] er) follow-up plan is documented Forms complete Forms complete 03/02/2019 [place] (M ount 12:00:00 AM [facility]) No prior serious No prior serious 03/02/2019 [facility] ([facility] illness illness 12:00:00 AM [facility]) Periodic Oral Exam - Periodic Oral Exam - 02/20/2019 [place] ([facility] MKD WRAP MKD WRAP 12:00:00 AM [facility]) ADULT PROPHYLAXIS ADULT PROPHYLAXIS 02/20/2019 [facility] ([facility] 12:00:00 AM [facility]) BITEWINGS-FOUR FILMS BITEWINGS-FOUR FILMS 02/20/2019 VEE ([facility] 12:00:00 AM [facility]) INTRAORAL EACH INTRAORAL EACH 02/20/2019 VEE (M [place] ADDITIONAL ADDITIONAL 12:00:00 AM [facility]) INTRAORAL PERIAPICAL INTRAORAL PERIAPICAL 02/20/2019 VEE ([facility] FIRST FLIM FIRST FLIM 12:00:00 AM [facility]) PERIODIC ORAL EXAM PERIODIC ORAL EXAM 02/20/2019 [place] ([facility] 12:00:00 AM [facility]) ORAL HYGIENE ORAL HYGIENE 02/20/2019 VEE ([facility] INSTRUCTION INSTRUCTION 12:00:00 AM [facility]) Result: normal Result: normal 10/01/2018 [place] (M ount 12:00:00 AM [facility]) comments: comments: 2 10/01/2018 VEE ([facility] 2 NAD. LNSD April NAD. LNSD April 12:00:00 AM Abhishek wyatt [facility] [address] [place] [address]) Para 2 Para 2 10/01/2018 VEE ([facility] 12:00:00 AM [facility]) Not using Not using 10/01/2018 VEE ([facility] contraception contraception 12:00:00 AM [facility]) Last pap smear date Last pap smear date 10/01/2018 G [place]AY ([facility] 09/03/2017 09/03/2017 12:00:00 AM [facility]) 2 2 10/01/2018 VEE ([facility] 12:00:00 AM [facility]) Aborta 0 Aborta 0 10/01/2018 VEE ([facility] 12:00:00 AM [facility]) Patient does not have Patient does not have 10/01/2018 VEE ([facility] any actve medical any actve medical [facility]:00:[facility] problem ~Has n0 problem ~Has n0 [facility] nter) history of any history of any operstion operstion Sign language or oral Sign language or Oral 09/26/2018 VEE ([facility] interpretive Interpretation per 15 12:00:00 AM [facility] services, per 15 Minutes [facility] er) minutes Bmi is documented BMI > NORMAL 09/26/2018 VEE ([place] above normal DOCUMENTED W F/U PLAN 12:00:00 AM [facility] parameters and a [facility] er) follow-up plan is documented No history of surgery No history of surgery 09/26/2018 [place] ([place] 12:00:00 AM [facility]) Sign language or oral Sign language or Oral 09/24/2018 VEE ([place] interpretive Interpretation per 15 12:00:00 AM [facility] services, per 15 Minutes [facility] er) minutes Bmi is documented BMI > NORMAL 09/12/2018 VEE ([place] above normal DOCUMENTED W F/U PLAN 12:00:00 AM [facility] follow-up plan is documented Sign language or oral Sign language or Oral 07/17/2018 [place] ([place] interpretive Interpretation per 15 12:00:00 AM [facility] minutes HEPATITIS C ANTIBODY HEPATITIS C ANTIBODY 07/16/2018 [place] ([place] 12:00:00 AM [facility]) MEASLES RUBEOLA MEASLES RUBEOLA 07/16/2018 [place] ([place] ANTIBODY ANTIBODY 12:00:00 AM [facility]) MUMPS ANTIBODY MUMPS ANTIBODY 07/16/2018 [place] (M ount 12:00:00 AM [facility]) HEPATITIS B SURFACE HEPATITIS B SURFACE AG 07/16/2018 [place] ([place] AG 12:00:00 AM [facility]) HEPATITIS B SURFACE HEPATITIS B SURFACE 07/16/2018 [place] ([place] ANTIBODY (HBsAb) ANTIBODY (HBsAb) 12:00:00 AM [facility]) HEPATITIS B CORE HEPATITIS B CORE 07/16/2018 [facility] ([place] ANTIBODY (HBcAb); ANTIBODY (HBcAb); 12:00:00 AM [facility]) RUBELLA TITER RUBELLA TITER 07/16/2018 [place] (Nikole nt 12:00:00 AM [facility]) VARICELLA - ZOSTER VARICELLA - ZOSTER 07/16/2018 [place] ([place] 12:00:00 AM [facility]) ADULT PROPHYLAXIS ADULT PROPHYLAXIS 07/15/2018 [facility] ([place] 12:00:00 AM [facility]) URINALYSIS URINALYSIS MICROSCOPIC 07/14/2018 [facility] ([facility] MICROSCOPIC 12:00:00 AM [facility]) URINE C AND S URINE C AND S 07/14/2018 VEE (Nikole nt 12:00:00 AM [facility]) Sign language or oral Sign language or Oral 07/14/2018 VEE ([facility] interpretive Interpretation per 15 12:00:00 AM [facility], per 15 Minutes [facility] er) minutes Past medical history Past medical history 07/11/2018 [place] ([facility] G2 L2 A0 M0 G2 L2 A0 M0 12:00:00 AM [facility]) QUANTIFERON QUANTIFERON 07/11/2018 [place] ([facility] TUBERCULOSIS TEST, TUBERCULOSIS TEST, 12:00:00 AM [facility] CELL MEDIATED CELL MEDIATED IMMUNITY [facility]) IMMUNITY AG RES AG RES VISUAL ACUITY SCREEN VISUAL ACUITY SCREEN 07/11/2018 VEE ([facility] 12:00:00 AM [facility]) Sign language or oral Sign language or Oral 07/11/2018 [place] ([facility] interpretive Interpretation per 15 12:00:00 AM [facility], per 15 Minutes [facility] er) minutes [id number] 07/11/2018 [facility] ([facility] 12:00:00 AM [facility]) TSH-THYROID TSH-THYROID 07/11/2018 [place] ([facility] STIMULATING STIMULATING 12:00:00 AM [facility]) URINALYSIS URINALYSIS MICROSCOPIC 07/11/2018 [facility] ([facility] MICROSCOPIC 12:00:00 AM [facility]) METABOLIC PANEL METABOLIC PANEL 07/11/2018 [place] ([facility] COMPREHE COMPREHE 12:00:00 AM [facility]) Drug Screen -Optical Drug Screen -Optical 07/11/2018 [place] ([facility] observation - Any observation - Any 12:00:00 AM [facility] Number Class Number Class [facility]) LIPID PANEL LIPID PANEL 07/11/2018 [place] ([facility] 12:00:00 AM [facility]) VDRL (RPR) VDRL (RPR) 07/11/2018 VEE ([place] 12:00:00 AM [facility]) HIV 1/2 ANTIGEN & HIV 1/2 ANTIGEN & 07/11/[address] ([place] ANTIBODIES, 4TH ANTIBODIES, 4TH 12:00:00 AM [facility] ighborhood GENERATION W/REFLEXES GENERATION W/REFLEXES [facility]) CHLAMYDIA / CHLAMYDIA / GONOCOCCUS 07/11/[address] ([facility] GONOCOCCUS URINE URINE 12:00:00 AM [facility] hborhood [facility]) Periodic Oral Exam - Periodic Oral Exam - 06/19/2018 VEE ([facility] MKD WRAP MKD WRAP 12:00:00 AM [facility]) INTRAORAL COMPLETE INTRAORAL COMPLETE 06/19/2018 [place] ([facility] SERIES SERIES 12:00:00 AM [facility]) PERIODIC ORAL EXAM PERIODIC ORAL EXAM 06/19/2018 [place] ([facility] 12:00:00 AM [facility]) CARE (6 CARE (6 05/30/2018 Alycia FOSS ([facility] WEEK VISIT ONLY) WEEK VISIT ONLY) 12:00:00 AM [facility]) VAGINAL DELIVERY VAGINAL DELIVERY 04/12/2018 JESSICA Morales ([facility] (Deliver at 39 weeks (Deliver at 39 weeks 12:00:00 AM [facility] of gestation or of gestation or later, [facility]) later, Spantaneous OB Spantaneous OB Deliveries Between Deliveries Between 37-39 WKS Gestation) 37-39 WKS Gestation) BIOPHYSICAL PROFILE BIOPHYSICAL PROFILE 04/10/2018 Alycia FOSS ([place] W/NST W/NST 12:00:00 AM [facility]) LMP: 07/02/2017 LMP: 07/02/2017 03/24/2018 VEE (M ount 12:00:00 AM [facility]) Results ID Date Data Source [id number] 07/29/2019 01:01:00 PM [facility] (Nikole nt [facility]) Name Value Range Interpretation Description Data Source(s ) Supporting Code Document(s ) Chlamydia Negative Chlamydia VEE trachomatis trachomatis, ([place] rRNA [Presence] [place] [facility]) specimen by Probe and target amplification method Neisseria Negative Neisseria VEE gonorrhoeae gonorrhoeae, ([place] rRNA [Presence] FRANCISCO [facility] in [facility]) specimen by Probe and target amplification method ID Date Data Source [id number] 07/29/2019 12:50:00 PM EDT VEE ([facility]) Name Value Range Interpretation Description Data Source(s ) Supporting Code Document(s ) Gardnerella Negative Gardnerella VEE vaginalis rRNA vaginalis ([place] [Presence] in [facility] Genital [facility]) specimen by DNA probe Eve sp Negative Eve VEE rRNA species ([place] [Presence] in [facility] Vaginal fluid [facility]) by DNA probe Trichomonas Negative Trichomonas VEE vaginalis rRNA vaginalis ([place] [Presence] in [facility] Genital [facility]) specimen by DNA probe ID Date Data Source [id number] 07/29/2019 12:48:00 PM EDT VEE ([facility]) Name Value Range Interpretation Description Data Source(s ) Supporting Code Document(s ) Microscopic . . VEE ([place] observation [place] [Identifier] [facility]) specimen by Other stain Note: PAPSMR Note: VEE ([facility]) Note: The Pap smear is a screening test designed to aid in the detection ofpremalignant and malignant conditions of the uterine cervix. It is not adiagnostic procedure and should not be used as the sole means of detectingcervical cancer. Both false-positive and false-negative report s do occur. Pathology report final See Note DIAGNOSIS: SUSANNAH AY ([place] diagnosis Narrative [facility]) Note: NEGATIVE FOR INTRAEPITHELIAL LESIO N OR MALIGNANCY. Statement of adequacy See Note Specimen adequacy: VEE ([place] [Interpretation] of Cervical N [facility] or vaginal smear or scraping C enter) by Cyto stain Note: Satisfactory for evaluation. Endo cervical and/or squamous metaplasticcells (endocervical component) are present. Band Sawing Machine Operator who read Cyto See Note Performed by: Alycia FOSS ([place] stain of Cervical or [facility]) vaginal smear or scraping Note: Mitch Ivey, Clinical Technologist ( [facility]) Diagnosis ICD code See Note Clinician provided IOANA OLIVERA ([place] ICD10: [facility]) Note: Z01.419 Cytology report of IGLMAP Test Methodology: GRE ENWAY ([place] Cervical or vaginal smear [facility]) or scraping Cyto stain.thin prep Note: This liquid based ThinPrep(R) pap test was screened with theuse of an image guided system. HPV, high-risk Negative HPV, high-risk VEE ( [facility]) Note: This high-risk HPV test detects th irteen high-risk types(16/18/31/33/35/39/45/51/52/56/58/5 /) without differentiation. ID Date Data Source [id number] 07/29/2019 12:00:00 AM EDT [place] (Nikole nt [facility]) Name Value Range Interpretation Description Data Source(s ) Supporting Code Document(s ) Ferritin 8 ng/mL Below low normal Ferritin, VEE (Nikole nt [Mass/volum Serum [place] e] in Serum [facility] or [facility]) ID Date Data Source [id number] 07/29/2019 12:00:00 AM EDT [place] ([facility]) Name Value Range Interpretation Description Data Source(s ) Supporting Code Document(s ) Cobalamin 551 Vitamin B12 VEE ([facility] (Vitamin pg/mL [place] B12) [facility] [Mass/volume [facility]) ] in Serum or Plasma Folate 13.8 Folate (Folic VEE ([facility] [Mass/volume ng/mL Acid), Serum [place] ] in Serum [facility] or [facility]) Note: A serum folate concentration of le ss than 3.1 ng/mL isconsidered to represent clinical deficiency. ID Date Data Source [id number] 07/29/2019 12:00:00 AM EDT [place] (Nikole nt [facility]) Name Value Range Interpretation Description Data Source(s ) Supporting Code Document(s ) Iron 41 ug/dL Iron VEE ([facility] [Mass/volu [place] me] in [facility] Serum or [facility]) Plasma Note: Specimen received hemolyzed. Clini sydni correlation indicated. Iron binding 407 ug/dL Iron Bind.Cap.(TIBC) [facility] ([place] capacity [place] [Mass/volume] in [facility] Serum or Plasma [facility]) Iron binding 366 ug/dL UIBC VEE ([facility] capacity.unsaturated [place] [Mass/volume] in [facility] Serum or [facility]) Iron saturation 10 % Below low Iron Saturation VEE ([place] [Mass Fraction] in normal [place] Serum or Plasma [facility]) ID Date Data Source [id number] 07/22/2019 10:24:00 AM [facility] ([facility]) Name Value Range Interpretation Description Data Source(s ) Supporting Code Document(s ) Measles virus >300.0 Rubeola Ab, [place] IgG Ab AU/mL IgG ([place] [Units/volume] [facility] in Serum by [facility]) Immunoassay Note: Negative <25.0 Equ ivocal 25.0 - 29.9 Positive >29. 9 Presence of antibodies to Rubeola is presumptive evidence of immunity except when acute infection is suspected. ID Date Data Source [id number] 07/22/2019 10:24:00 AM [facility] ([facility]) Name Value Range Interpretation Description Data Source(s ) Supporting Code Document(s ) Mumps virus 97.2 Mumps Abs, [place] IgG Ab AU/mL IgG ([place] [Units/volume] [facility] in Serum by [facility]) Immunoassay Note: Negative <9.0 Equiv ocal 9.0 - 10.9 Positive >10.9 A positive result generally indicates past exposure to Mumps virus or previous vaccination. ID Date Data Source [id number] 07/22/2019 10:24:00 AM [facility] ([facility]) Name Value Range Interpretation Description Data Source(s ) Supporting Code Document(s ) Varicella 754 Varicella [place] zoster virus index Zoster IgG ([place] IgG Ab [facility] [Units/volume] [facility]) in Serum by Immunoassay Note: Negative <135 Equivo sydni 135 - 165 Positive >165 A positive result generally indicates exposure to the pathogen or administration of specific immunoglobulins, but it is not indication of active infection or stage of disease. ID Date Data Source [id number] 07/22/2019 10:24:00 AM [facility] ([facility]) Name Value Range Interpretation Description Data Source(s ) Supporting Code Document(s ) Rubella virus 14.20 Rubella [place] IgG Ab index Antibodies, ([place] [Units/volume] IgG [facility] in Serum or [facility]) Plasma by Immunoassay Note: Non-immune <0.90 Equi vocal 0.90 - 0.99 Immune >0.9 9 ID Date Data Source [id number] 07/22/2019 10:24:00 AM EDT VEE ([facility]) Name Value Range Interpretation Description Data Source(s ) Supporting Code Document(s ) Thyrotropin 0.960 TSH [place] ([facility] [Units/volume] uIU/mL [place] in Serum or Neighborhood Plasma by [facility]) Detection limit <= 0.05 mIU/L ID Date Data Source [id number] 07/22/2019 10:24:00 AM EDT VEE ([facility]) Name Value Range Interpretation Description Data Source(s ) Supporting Code Document(s ) Hemoglobin 5.3 % Hemoglobin A1c VEE ([place] t A1c/Hemoglobi [place] n.total in [facility]) Note: Prediabetes: 5.7 - 6.4 Diabetes: >6.4 Glycemic control for adults with diabetes: <7.0 ID Date Data Source [id number] 07/22/2019 10:24:00 AM EDT [place] ([facility]) Name Value Range Interpretation Description Data Source(s ) Supporting Code Document(s ) Triglyceride 39 Triglycerides VEE [Mass/volume] mg/dL ([place] in Serum or [facility] Plasma [facility]) Cholesterol 149 Cholesterol, VEE [Mass/volume] mg/dL Total ([place] in Serum or [facility] Plasma [facility]) Cholesterol in 59 HDL Cholesterol [place] HDL mg/dL ([place] [Mass/volume] [facility] in Serum or [facility]) Plasma Laboratory N/A Comment: MARENGO comment [Text] (Susan Scherer in Report [facility]) Cholesterol in 1.4 LDL/HDL Ratio MARENGO LDL/Cholestero ratio ([place] l in HDL [Mass Neighborhood Ratio] in [facility]) Serum or Plasma Note: LDL/HDL Ratio Men Women 1/2 Avg.Risk 1.0 1.5 Avg.Risk 3.6 3.2 2X Avg.Risk 6.2 5.0 3X Avg.Risk 8.0 6.1 Cholesterol in VLDL 8 mg/dL VLDL Cholesterol Sydni MARENGO ([place] [Mass/volume] in Serum or [facility] Plasma by calculation Center) Cholesterol in LDL 82 mg/dL LDL Cholesterol Calc MARENGO ([place] [Mass/volume] in Serum or [facility] Plasma by calculation Center) ID Date Data Source [id number] 07/22/2019 10:24:00 AM EDT VEE (Nikole [facility]) Name Value Range Interpretation Description Data Sup porting Code Source(s) Document(s ) Calcium 9.4 Calcium VEE [Mass/volume] in mg/dL ([facility]) Urea nitrogen 11 BUN VEE [Mass/volume] in mg/dL ([facility]) Protein 7.1 Protein, VEE [Mass/volume] in g/dL Total ([facility]) Glucose 75 Glucose VEE [Mass/volume] in mg/dL ([facility]) Alkaline 60 IU/L Alkaline VEE phosphatase Phosphatase ([place] [Enzymatic [facility] activity/volume] [facility] in [facility] or [facility]) Bilirubin.total 0.2 Bilirubin, VEE [Mass/volume] in mg/dL Total ([facility]) Aspartate 16 IU/L AST (SGOT) VEE aminotransferase ([place] [Enzymatic [facility] activity/volume] [facility] in [facility] or [facility]) Albumin 4.4 Albumin VEE [Mass/volume] in g/dL ([facility]) Potassium 4.3 Potassium VEE [Moles/volume] in mmol/L ([facility]) Chloride 101 Chloride VEE [Moles/volume] in mmol/L ([facility]) Sodium 137 Sodium VEE [Moles/volume] in mmol/L ([facility]) Creatinine 0.80 Creatinine VEE [Mass/volume] in mg/dL ([facility]) Carbon dioxide, 23 Carbon VEE total mmol/L Dioxide, ([place] [Moles/volume] in Total [facility]) Alanine 11 IU/L ALT (SGPT) VEE aminotransferase ([place] [Enzymatic [facility] activity/volume] [facility] in [facility] or [facility]) Urea 14 BUN/Creatinin VEE nitrogen/Creatinin e Ratio ([facility] on e [Mass Ratio] in [facility]) Albumin/Globulin 1.6 A/G Ratio VEE [Mass Ratio] in ([facility]) Globulin 2.7 Globulin, MARENGO [Mass/volume] in g/dL Total ([place] Serum by [facility]) eGFR If NonAfricn 94 eGFR If VEE Am mL/min/ NonAfricn Am ([address]) eGFR If Africn Am 108 eGFR If VEE mL/min/ Africn Am ([address]) ID Date Data Source [id number] 07/22/2019 10:24:00 AM EDT VEE (Nikole [facility]) Name Value Range Interpretation Description Data Source(s ) Supporting Code Document(s ) Calcidiol 28.4 Below low normal Vitamin D, MARENGO (Mo unt [Mass/volume ng/mL 25-Hydroxy [place] ] in Serum [facility]) Note: Vitamin D deficiency has been defi trudy by the [place] ofMedicine and an Endocrine Society practice guideline as alevel of serum 25-OH vitamin D less than 20 ng/mL (1,2).The Endocrine Society went o n to further define vitamin Dinsufficiency as a level between 21 and 29 ng/mL (2).1. I OM ([place] of [employer]). 2010. Dietary reference intakes for calcium and D. [place]: The National Academies Press.2. Levi MF, Samym NC, Max Arias MCCLENDON, et al. Evaluation, treatment, and prevention of vitamin D deficiency : an Endocrine Society clinical practice guideline. JCEM. 2010; 96(7):1911-30 . ID Date Data Source [id number] 07/22/2019 10:24:00 AM EDT VEE (Nikole nt [facility]) Name Value Range Interpretation Description Data Sup porting Code Source(s) Document(s ) Benzodiazepine Negative Benzodiazepines VEE s [Presence] ng/mL ([place] in Urine [facility]) Opiates Negative Opiates VEE [Presence] in ng/mL ([place] Urine [facility]) Note: Opiate test includes Codeine and M orphine only. Benzoylecgonine Negative ng/mL Cocaine (Metab.) GR EENWAY ([facility] [Presence] in Urine [facility]) Phencyclidine [Presence] Negative ng/mL Phencyclid ine VEE ([facility] in Urine [facility]) Barbiturates [Presence] Negative ng/mL Barbiturate VEE ([place] in Urine by Screen [facility]) Cannabinoids [Presence] Negative ng/mL Cannabinoid VEE ([place] in Urine by Screen [facility]) Propoxyphene [Presence] Negative ng/mL Propoxyphen e, Urine VEE ([place] in Urine [facility]) Amphetamines [Presence] Negative ng/mL Amphetamine s, Urine VEE ([place] in Urine by Screen [facility]) Note: Amphetamine test includes Amphetam ine and Methamphetamine. Ethanol [Mass/volume] Negative % Ethanol, Urine GR EENWAY ([place] in [facility]) Methadone [Presence] in Negative ng/mL Methadon e Screen, VEE ([place] Urine by Screen method Urine [facility]) ID Date Data Source [id number] 07/22/2019 12:00:00 AM EDT VEE ([facility]) Name Value Range Interpretation Description Data Sup porting Code Source(s) Document(s ) QuantiFERON Incubation QuantiFERON VEE Incubation performed. Incubation ([facility]) Service See Note QuantiFERON VEE comment Criteria ([facility]) Note: The QuantiFERON-TB Gold Plus resul t is determined by subtractingthe Nil value from either TB antigen (Ag) tube. The mi togen tubeserves as a control for the test. QuantiFERON TB2 Ag 3.54 IU/mL QuantiFERON TB2 GREE NWAY ([facility] Value Ag [facility]) QuantiFERON TB1 Ag 3.99 IU/mL QuantiFERON TB1 GREE NWAY ([facility] Value Ag [facility]) Gamma interferon 0.10 IU/mL QuantiFERON Nil GREENW AY ([facility] background Value [place] [Units/volume] in Neighborhood Blood by [facility]) Immunoassay QuantiFERON-TB Positive Abnormal QuantiFERON-TB VEE ( [place] Gold Plus (applies to Gold Plus [place] non-numeric [facility] results) [facility]) QuantiFERON >10.00 IU/mL QuantiFERON VEE (Nikole nt Mitogen Value Mitogen [facility]) ID Date Data Source [id number] 09/17/2018 02:22:00 PM EDT VEE ([facility]) Name Value Range Interpretation Description Data Source(s ) Supporting Code Document(s ) Neisseria Negative Neisseria VEE gonorrhoeae gonorrhoeae, ([place] rRNA [Presence] FRANCISCO [facility] in [facility]) specimen by Probe and target amplification method Chlamydia Negative Chlamydia VEE trachomatis trachomatis, ([place] rRNA [Presence] FRANCISCO [facility] in [facility]) specimen by Probe and target amplification method ID Date Data Source [id number] 09/17/2018 02:21:00 PM EDT VEE ([facility]) Name Value Range Interpretation Description Data Source(s ) Supporting Code Document(s ) Gardnerella Negative Gardnerella VEE vaginalis rRNA vaginalis ([place] [Presence] in [facility] Genital [facility]) specimen by DNA probe Eve sp Negative Eve VEE rRNA species ([place] [Presence] in [facility]) by DNA probe Trichomonas Negative Trichomonas VEE vaginalis rRNA vaginalis ([place] [Presence] in [facility]) specimen by DNA probe ID Date Data Source [id number] 09/17/2018 02:18:00 PM EDT EVE ([facility]) Name Value Range Interpretation Description Data Source(s ) Supporting Code Document(s ) Microscopic . . VEE ([place] observation [place] [Identifier] [facility]) specimen by Other stain Note: PAPSMR Note: VEE ([facility]) Note: The Pap smear is a screening test designed to aid in the detection ofpremalignant and malignant conditions of the uterine cervix. It is not adiagnostic procedure and should not be used as the sole means of detectingcervical cancer. Both false-positive and false-negative report s do occur. Statement of adequacy See Note Specimen adequacy: VEE ([place] [Interpretation] of Cervical [facility] or vaginal smear or scraping C enter) by Cyto stain Note: Satisfactory for evaluation. Endo cervical and/or squamous metaplasticcells (endocervical component) are present. Band Sawing Machine Operator who read Cyto See Note Performed by: Alycia FOSS ([place] stain of Cervical or [facility]) vaginal smear or scraping Note: Eliceo Be, Clinical Technologist (ASCP) HPV, high-risk Negative HPV, high-risk VEE ( [facility]) Note: This high-risk HPV test detects th irteen high-risk types(16/18/31/33/35/39/45/51/52/56/58/5 ) without differentiation. Diagnosis ICD code See Note Clinician provided IOANA OLIVERA ([place] ICD10: [facility]) Note: Z01.419 Pathology report final See Note DIAGNOSIS: GREENW AY ([place] diagnosis Narrative [facility]) Note: NEGATIVE FOR INTRAEPITHELIAL LESIO N AND MALIGNANCY. Cytology report of IGLPAP Test Methodology: GRE ENWAY ([place] Cervical or vaginal smear [facility]) or scraping Cyto stain.thin prep Note: This liquid based ThinPrep(R) pap test was screened with theuse of an image guided system. ID Date Data Source [id number] 09/17/2018 12:00:00 AM EDT VEE ([facility]) Name Value Range Interpretation Description Data Source(s ) Supporting Code Document(s ) hCG,Beta <1 mIU/mL hCG,Beta VEE ([facility] Subunit, Subunit,Qnt,Ser [place] Qnt,Seru [facility]) Note: Female (Non-) 0 - 5 (Postme nopausal) 0 - 8 Female () Weeks of Gestation 3 6 - 71 4 1 0 - 750 5 217 - 7138 6 158 - 99714 7 [phone] 8 [phone] 9 60867 -[phone] 10 91412 -1 02048 12 49715 -[phone] 14 20253 - 65038 15 95906 - 65957 16 9040 - 10396 17 8 993 - 16427 18 4549 - 34406Adcsv ECLIA methodology ID Date Data Source [id number] 07/11/2018 12:00:00 AM EDT VEE ([facility]) Name Value Range Interpretation Description Data Source(s ) Supporting Code Document(s ) Hepatitis B Negative Hep B Core MARENGO virus core Ab Ab, Tot ([place] [Presence] in [facility] Serum or [facility]) Plasma by Immunoassay ID Date Data Source [id number] 07/11/2018 12:00:00 AM EDT MARENGO ([facility]) Name Value Range Interpretation Description Data Source(s ) Supporting Code Document(s ) Hepatitis B Negative HBsAg Screen MARENGO virus surface ([place] Ag [Presence] Neighborhood in Serum or Health Center) Plasma by Immunoassay ID Date Data Source [id number] 07/11/2018 12:00:00 AM EDT MARENGO ([facility]) Name Value Range Interpretation Description Data Source(s ) Supporting Code Document(s ) QuantiFERON TB Positive Abnormal QuantiFERON MAR[place] Gold (applies to TB Gold ([place] non-numeric [facility] results) [facility]) Annotation See Note Interpretatio VEE comment n: ([place] [Interpretatio [facility] n] [facility]) Note: The QuantiFERON TB Gold (in Tube) assay is intended for use as an aidin the diagnosis of TB infection. Negative resu lts suggest that thereis no TB infection. In patients with high suspicion of exposure , anegative test should be repeated. A positive test indicates infectionwith My cobacterium tuberculosis. Among individuals withouttuberculosis infection, a positiv e test may be due to exposure [place]. [place], M. szulgai or M. marinum. On the Interne t, go tocdc.gov/tb for further details. QuantiFERON TB Ag Value 5.11 IU/mL QuantiFERON TB Ag MARENGO ([facility]) Gamma interferon 0.15 IU/mL QuantiFERON Nil Value MARENGO ([facility] [Units/volume] in Blood Center ) by Immunoassay QFT TB Ag minus Nil 4.96 IU/mL QFT TB Ag minus Nil MARENGO ([facility]) QuantiFERON Mitogen 7.96 IU/mL QuantiFERON Mitogen MARENGO ([facility]) Service comment See Note QuantiFERON Criteria GRE ENWAY ([facility]) Note: To be considered positive a specim en should have a TB Ag minus Nilvalue greater than or equal to 0.35 IU/mL and in addit ion the TB Agminus Nil value must be greater than or equal to 25% of the Nilvalue. Th ere may be insufficient information in these values todifferentiate between some nega tive and some indeterminate testvalues. ID Date Data Source [id number] 07/11/2018 12:00:00 [facility]) Name Value Range Interpretation Description Data Source(s ) Supporting Code Document(s ) QuantiFERON QRN QuantiFERON MARENGO ([facility]) Note: Specimen incubated at [place], [place]. ID Date Data Source [id number] 07/11/2018 12:00:00 [facility]) Name Value Range Interpretation Description Data Source(s ) Supporting Code Document(s ) Hepatitis C 0.1 Hep C Virus MARENGO virus Ab s/co_rat Ab ([place] Signal/Cutoff io Neighborhood in Serum or Health Center) Plasma by Immunoassay Note: Negative: < 0.8 Indeterm inate: 0.8 - 0.9 Positive: > 0.9 The CDC recommends that a positive HCV antibody result be followed up with a HCV Nucleic Acid Amplification test (75316 3). ID Date Data Source [id number] 07/11/2018 12:00:00 AM [facility] ([facility]) Name Value Range Interpretation Description Data Source(s ) Supporting Code Document(s ) Measles virus >300.0 Rubeola Ab, MARENGO IgG Ab AU/mL IgG ([place] [Units/volume] Neighborhood in Serum by [facility]) Immunoassay Note: Negative <25.0 Equ ivocal 25.0 - 29.9 Positive >29. 9 Presence of antibodies to Rubeola is presumptive evidence of immunity except when acute infection is suspected. ID Date Data Source [id number] 07/11/2018 12:00:00 AM [facility]) Name Value Range Interpretation Description Data Source(s ) Supporting Code Document(s ) Mumps virus 98.1 Mumps Abs, MAR[place] IgG Ab AU/mL IgG ([place] [Units/volume] [facility] in Serum by [facility]) Immunoassay Note: Negative <9.0 Equiv ocal 9.0 - 10.9 Positive >10.9 A positive result generally indicates past exposure to Mumps virus or previous vaccination. ID Date Data Source [id number] 07/11/2018 12:00:00 AM [facility] ([facility]) Name Value Range Interpretation Description Data Source(s ) Supporting Code Document(s ) Varicella 739 Varicella MARENGO zoster virus index Zoster IgG ([place] IgG Ab [facility] [Units/volume] [facility]) in Serum by Immunoassay Note: Negative <135 Equivo sydni 135 - 165 Positive >165 A positive result generally indicates exposure to the pathogen or administration of specific immunoglobulins, but it is not indication of active infection or stage of disease. ID Date Data Source [id number] 07/11/2018 12:00:00 AM [facility] ([facility]) Name Value Range Interpretation Description Data Source(s ) Supporting Code Document(s ) HIV 1+2 Non HIV Screen MARENGO Ab+HIV1 p24 Reactive 4th ([place] Ag [Presence] Generation [facility] in Serum or [facility]) Plasma by Immunoassay ID Date Data Source [id number] 07/11/2018 12:00:00 AM [facility] ([facility]) Name Value Range Interpretation Description Data Source(s ) Supporting Code Document(s ) Hepatitis B Reactive Hep B Surface MARENGO virus Ab, Qual ([place] surface Ab [facility] [Presence] [facility]) in Serum Note: Non R eactive: Inconsistent with immunity, less th an 10 mIU/mL Reactive: Consistent with immunity, greater than 9.9 mIU/mLVerified by rep eat analysis ID Date Data Source [id number] 07/11/2018 12:00:00 AM T MARENGO ([facility]) Name Value Range Interpretation Description Data Source(s ) Supporting Code Document(s ) Rubella virus 10.50 Rubella MARENGO IgG Ab index Antibodies, ([place] [Units/volume] IgG [facility] in Serum or [facility]) Plasma by Immunoassay Note: Non-immune <0.90 Equi vocal 0.90 - 0.99 Immune >0.9 9 ID Date Data Source [id number] 07/11/2018 12:00:00 AM [facility] ([facility]) Name Value Range Interpretation Description Data Source(s ) Supporting Code Document(s ) Thyrotropin 1.120 TSH MARENGO ([facility] [Units/volume] uIU/mL [place] in Serum or Neighborhood Plasma by [facility]) Detection limit <= 0.05 mIU/L ID Date Data Source [id number] 07/11/2018 12:00:00 AM EDT VEE ([facility]) Name Value Range Interpretation Description Data Source(s ) Supporting Code Document(s ) Chlamydia Negative Chlamydia VEE trachomatis trachomatis, ([place] rRNA [Presence] FRANCISCO Neighborhood in [facility]) specimen by Probe and target amplification method Neisseria Negative Neisseria VEE gonorrhoeae gonorrhoeae, ([place] rRNA [Presence] FRANCISCO [facility] in [facility]) specimen by Probe and target amplification method ID Date Data Source [id number] 07/11/2018 12:00:00 AM EDT VEE ([facility]) Name Value Range Interpretation Description Data Source(s ) Supporting Code Document(s ) Cholesterol 147 Cholesterol, VEE [Mass/volume] mg/dL Total ([place] in Serum or [facility] Plasma [facility]) Cholesterol in 60 HDL Cholesterol VEE HDL mg/dL ([place] [Mass/volume] Neighborhood in Serum or Health Center) Plasma Triglyceride 92 Triglycerides MARENGO [Mass/volume] mg/dL ([place] in Serum or [facility] Plasma [facility]) Laboratory N/A Comment: VEE comment [Text] ([place] in Report [facility]) Cholesterol in 69 LDL Cholesterol VEE LDL mg/dL Calc ([place] [Mass/volume] Neighborhood in Serum or Health Center) Plasma by calculation Cholesterol in 1.2 LDL/HDL Ratio VEE LDL/Cholestero ratio ([place] l in HDL [Mass Neighborhood Ratio] in [facility]) Serum or Plasma Note: LDL/HDL Ratio Men Women 1/2 Avg.Risk 1.0 1.5 Avg.Risk 3.6 3.2 2X Avg.Risk 6.2 5.0 3X Avg.Risk 8.0 6.1 Cholesterol in VLDL 18 mg/dL VLDL Cholesterol Sydni VEE ([place] [Mass/volume] in Serum or [facility] Plasma by calculation Center) ID Date Data Source [id number] 07/11/2018 12:00:00 AM EDT VEE ([facility]) Name Value Range Interpretation Description Data Sup porting Code Source(s) Document(s ) Glucose 74 Glucose VEE [Mass/volume] in mg/dL ([place] Serum or Plasma [facility]) Urea nitrogen 13 BUN VEE [Mass/volume] in mg/dL ([place] Serum or [facility]) Calcium 9.8 Calcium VEE [Mass/volume] in mg/dL ([facility] or [facility]) Albumin 4.5 Albumin VEE [Mass/volume] in g/dL ([facility]) Bilirubin.total <0.2 Bilirubin, VEE [Mass/volume] in mg/dL Total ([facility] or [facility]) Protein 7.1 Protein, VEE [Mass/volume] in g/dL Total ([facility]) Potassium 4.8 Potassium VEE [Moles/volume] in mmol/L ([facility] or [facility]) Aspartate 22 IU/L AST (SGOT) VEE aminotransferase ([place] [Enzymatic Neighborhood activity/volume] Health in Serum or [facility] [place]) Alkaline 62 IU/L Alkaline VEE phosphatase Phosphatase ([place] [Enzymatic Neighborhood activity/volume] Health in Serum or [facility]) Chloride 99 Chloride VEE [Moles/volume] in mmol/L ([facility]) Sodium 139 Sodium VEE [Moles/volume] in mmol/L ([facility] or [facility]) Creatinine 0.74 Creatinine VEE [Mass/volume] in mg/dL ([facility]) Alanine 24 IU/L ALT (SGPT) VEE aminotransferase ([place] [Enzymatic Neighborhood activity/volume] Health in Serum or [facility]) Urea 18 BUN/Creatinin VEE nitrogen/Creatinin e Ratio ([facility] on e [Mass Ratio] in [facility]) Carbon dioxide, 21 Carbon VEE total mmol/L Dioxide, ([place] [Moles/volume] in Total [facility]) eGFR If Africn Am 120 eGFR If VEE mL/min/ Africn Am ([address]) Globulin 2.6 Globulin, VEE [Mass/volume] in g/dL Total ([facility] by [facility]) Albumin/Globulin 1.7 A/G Ratio VEE [Mass Ratio] in ([facility] or [facility]) eGFR If NonAfricn 104 eGFR If VEE Am mL/min/ NonAfricn Am ([address]) ID Date Data Source [id number] 07/11/2018 12:00:00 AM EDT VEE ([facility]) Name Value Range Interpretation Description Data Sup porting Code Source(s) Document(s ) Benzodiazepine Negative Benzodiazepines VEE s [Presence] ng/mL ([place] in [facility]) Benzoylecgonin Negative Cocaine (Metab.) VEE e [Presence] ng/mL ([place] in [facility]) Opiates Negative Opiates VEE [Presence] in ng/mL ([facility]) Note: Opiate test includes Codeine and M orphine only. Phencyclidine Negative ng/mL Phencyclidine GREENWA Y ([place] [Presence] in Urine [facility]) Barbiturates [Presence] Negative ng/mL Barbiturate VEE ([place] in Urine by Screen [facility]) Cannabinoids [Presence] Negative ng/mL Cannabinoid VEE ([place] in Urine by Screen [facility]) Ethanol [Mass/volume] Negative % Ethanol U, Luis G REENWAY ([place] in Urine [facility]) Amphetamines [Presence] Negative ng/mL Amphetamine s, Urine VEE ([place] in Urine by Screen [facility]) Note: Amphetamine test includes Amphetam ine and Methamphetamine. Propoxyphene Negative ng/mL Propoxyphene, Urine GR EENWAY ([place] [Presence] in Urine [facility]) Methadone [Presence] Negative ng/mL Methadone Scre en, VEE ([place] in Urine by Screen Urine [facility]) ID Date Data Source [id number] 03/13/2018 03:01:00 PM EDT VEE ([facility]) Name Value Range Interpretation Description Data Source(s ) Supporting Code Document(s ) Streptococcus. Negative Strep Gp B VEE beta-hemolytic Culture ([place] [Presence] in [facility]) specimen by Organism specific culture Note: Centers for Disease Control and Pr evention (CDC) and [place] Congressof Obstetricians and Gynecologists (ACOG) g uidelines for prevention ofperinatal group B streptococcal (GBS) disease specify co-c ollection ofa vaginal and rectal swab specimen to maximize sensitivity of GBSd etection. Per the CDC and ACOG, swabbing both the lower vagina andrectum substantially increases the yield of detection compared withsampling the vagina alone.Penicillin G, ampicillin, or cefazolin are indicated for intrapartumprophylaxis of GBS colonization. Reflex susceptibilitytesting should be performe d prior to use of clindamycin only on GBSisolates from penicillin-allergic wom en who are considered a high riskfor anaphylaxis. Treatment with vancomycin w ithout additional testingis warranted if resistance to clindamycin is noted. ID Date Data Source [id number] 03/13/2018 02:59:00 PM EDT VEE (Nikole nt [facility]) Name Value Range Interpretation Description Data Source(s ) Supporting Code Document(s ) Neisseria Negative Neisseria VEE gonorrhoeae gonorrhoeae, ([place] rRNA [Presence] [facility] in [facility]) specimen by Probe and target amplification method Chlamydia Negative Chlamydia MARENGO trachomatis trachomatis, ([place] rRNA [Presence] [facility] in [facility]) specimen by Probe and target amplification method Procedure Social History Code Duration Value Status Description Data Source(s ) Smoking 07/15/2019 Never smoked completed Never smoked VEE ( [facility] 03:06:22 PM tobacco (finding) tobacco (finding) [facility]) Smoking 03/10/2019 smoking status completed VEE ( [facility] 12:48:[address] [facility]) Smoking 03/02/2019 Never smoked completed Never smoked VEE ( [facility] 04:54:19 PM tobacco (finding) tobacco (finding) [facility]) Assertion Tobacco user completed Tobacco user VEE ( [facility] (finding) (finding) [facility]) Assertion Finding of completed Finding of VEE (Moun t functional functional [place] performance and performance and Neig hborhood activity activity [facility]) (finding) (finding) Assertion social history completed VEE ( [facility] unchanged [facility]) Assertion sexual history completed MARENGO ( [facility]) Assertion Oral hygiene completed Oral hygiene MARENGO ( [facility] finding (finding) finding (finding) [facility]) Assertion Finding relating completed Finding relating GR EENWAY ([facility] to drug misuse to drug misuse [place] behavior behavior Neighborhood (finding) (finding) [facility]) Assertion Physical handicap completed Physical handicap VEE ([facility] (finding) (finding) [facility]) Assertion Finding of life completed Finding of life GREE NWAY ([facility] event (finding) event (finding) [facility]) Assertion Caffeine user completed Caffeine user VEE ([facility] (finding) (finding) [facility]) Assertion Current drinker completed Current drinker GREE NWAY ([place] of alcohol of alcohol [place] (finding) (finding) [facility]) Assertion Finding of completed Finding of VEE (Moun t activity of daily activity of daily [place] living (finding) living (finding) [facility]) Assertion Exercise history completed Exercise history GR EENWAY ([facility] finding (finding) finding (finding) [facility]) Assertion Sexually active completed Sexually active GREE NWAY ([facility] (finding) (finding) [facility]) Assertion Social and completed Social and VEE (Moun t personal history personal history Ve rnon finding (finding) finding (finding) [facility]) Smoking Unknown if ever completed Unknown if ever Caitlin Brito smoked smoked [facility] Assertion Sexually active completed Sexually active GREE NWAY ([facility] (finding) (finding) [facility]) Assertion Social and completed Social and VEE (Moun t personal history personal history Ve rnon finding (finding) [facility] ([facility]) [facility]) Assertion Current drinker completed Current drinker GREE NWAY ([place] of alcohol [place] (finding) ([facility]) [facility]) Assertion Finding of completed Finding of VEE (Moun t activity of daily activity of daily [place] living (finding) living (finding) [facility]) Assertion Exercise history completed Exercise history GR EENWAY ([facility] finding (finding) finding (finding) [facility]) Vital Signs ID Date Data Source UNK Name Value Range Interpretation Code Description Data Source(s) PhenX - pain, 0 0 VEE (M ount [place] abdominal - type [facility]) protocol pt is here due to having pain in the abd omen since the beginning of the year and she is also concerned about not receiving he r menstrual since 11/08/19 Body surface area Derived from 1.49 m2 1.49 m2 VEE ([facility]) pt is here due to having pain in the abd omen since the beginning of the year and she is also concerned about not receiving he r menstrual since 11/08/19 Body mass index (BMI) 24.6 kg/m2 24.6 kg/m2 GRE ENWAY ([place] [facility]) pt is here due to having pain in the abd omen since the beginning of the year and she is also concerned about not receiving he r menstrual since 11/08/19 Body weight 122 [lb_av] 122 [lb_av] VEE ( ount [facility]) pt is here due to having pain in the abd omen since the beginning of the year and she is also concerned about not receiving he r menstrual since 11/08/19 Body height 59 [in_us] 59 [in_us] VEE ([facility]) pt is here due to having pain in the abd omen since the beginning of the year and she is also concerned about not receiving he r menstrual since 11/08/19 Body temperature 96.8 [degF] 96.8 [degF] [facility] AY ([facility]) pt is here due to having pain in the abd omen since the beginning of the year and she is also concerned about not receiving he r menstrual since 11/08/19 Respiratory rate 18 /min 18 /min MARENGO ([facility]) pt is here due to having pain in the abd omen since the beginning of the year and she is also concerned about not receiving he r menstrual since 11/08/19 Heart rate 94 /min 94 /min MARENGO ([facility]) pt is here due to having pain in the abd omen since the beginning of the year and she is also concerned about not receiving he r menstrual since 11/08/19 Diastolic blood pressure 69 mm[Hg] 69 mm[Hg] MARENGO ([facility]) pt is here due to having pain in the abd omen since the beginning of the year and she is also concerned about not receiving he r menstrual since 11/08/19 Systolic blood pressure 106 mm[Hg] 106 mm[Hg] G REENWAY ([facility]) pt is here due to having pain in the abd omen since the beginning of the year and she is also concerned about not receiving he r menstrual since 11/08/19 PhenX - pain, abdominal - type and 0 0 VEE ([facility]) pt is here for paperwork to be filled ou t for employment Body surface area Derived from 1.48 m2 1.48 m2 VEE ([facility]) pt is here for paperwork to be filled ou t for employment Body mass index (BMI) 24.2 kg/m2 24.2 kg/m2 GRE ENWAY ([place] [facility]) pt is here for paperwork to be filled ou t for employment Body weight 119.8 [lb_av] 119.8 [lb_av] GREENWA Y ([facility]) pt is here for paperwork to be filled ou t for employment Body height 59 [in_us] 59 [in_us] VEE ([facility]) pt is here for paperwork to be filled ou t for employment Body temperature 97.9 [degF] 97.9 [degF] GREENW AY ([facility]) pt is here for paperwork to be filled ou t for employment Respiratory rate 18 /min 18 /min VEE ([facility]) pt is here for paperwork to be filled ou t for employment Heart rate 81 /min 81 /min VEE ([facility]) pt is here for paperwork to be filled ou t for employment Diastolic blood pressure 62 mm[Hg] 62 mm[Hg] VEE ([facility]) pt is here for paperwork to be filled ou t for employment Systolic blood pressure 94 mm[Hg] 94 mm[Hg] G REENWAY ([facility]) pt is here for paperwork to be filled ou t for employment PhenX - pain, abdominal - type and 0 0 VEE ([facility]) Pt is here for flu shot Body surface area Derived from 1.51 m2 1.51 m2 VEE ([facility]) Pt is here for flu shot Body mass index (BMI) 25.2 kg/m2 25.2 kg/m2 GRE ENWAY ([place] [facility]) Pt is here for flu shot Body weight 125 [lb_av] 125 [lb_av] VEE ([facility]) Pt is here for flu shot Body height 59 [in_us] 59 [in_us] VEE ([facility]) Pt is here for flu shot Body temperature 98 [degF] 98 [degF] VEE ([facility]) Pt is here for flu shot Heart rate 69 /min 69 /min VEE ([facility]) Pt is here for flu shot Diastolic blood pressure 60 mm[Hg] 60 mm[Hg] VEE ([facility]) Pt is here for flu shot Systolic blood pressure 95 mm[Hg] 95 mm[Hg] [facility] ([facility]) Pt is here for flu shot PhenX - pain, abdominal - type and 0 0 VEE ([facility]) Pt is here for test results and mammogra m results Body surface area Derived from 1.49 m2 1.49 m2 VEE ([facility]) Pt is here for test results and mammogra m results Body mass index (BMI) 24.4 kg/m2 24.4 kg/m2 GRE ENWAY ([place] [facility]) Pt is here for test results and mammogra m results Body weight 121 [lb_av] 121 [lb_av] VEE ([facility]) Pt is here for test results and mammogra m results Body height 59 [in_us] 59 [in_us] VEE ([facility]) Pt is here for test results and mammogra m results Body temperature 97.6 [degF] 97.6 [degF] [facility] ([facility]) Pt is here for test results and mammogra m results Heart rate 72 /min 72 /min VEE ([facility]) Pt is here for test results and mammogra m results Diastolic blood pressure 69 mm[Hg] 69 mm[Hg] VEE ([facility]) Pt is here for test results and mammogra m results Systolic blood pressure 111 mm[Hg] 111 mm[Hg] G [facility] ([facility]) Pt is here for test results and mammogra m results PhenX - pain, abdominal - type and 0 0 VEE ([facility]) Pt presents today for paperwork Body surface area Derived from 1.48 m2 1.48 m2 VEE ([facility]) Pt presents today for paperwork Body mass index (BMI) 24.0 kg/m2 24.0 kg/m2 GRE ENWAY ([place] [facility]) Pt presents today for paperwork Body weight 119 [lb_av] 119 [lb_av] VEE ([facility]) Pt presents today for paperwork Body height 59 [in_us] 59 [in_us] VEE ([facility]) Pt presents today for paperwork Body temperature 97.4 [degF] 97.4 [degF] [facility] AY ([facility]) Pt presents today for paperwork Heart rate 62 /min 62 /min VEE ([facility]) Pt presents today for paperwork Diastolic blood pressure 65 mm[Hg] 65 mm[Hg] VEE ([facility]) Pt presents today for paperwork Systolic blood pressure 102 mm[Hg] 102 mm[Hg] [facility] Pt presents today for paperwork PhenX - pain, abdominal - type and 0 0 VEE ([facility]) 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 Body surface area Derived from 1.47 m2 1.47 m2 MARENGO ([facility]) Pt is here for regular check and filler up form. Body mass index (BMI) 23.7 kg/m2 23.7 kg/m2 GRE ENWAY ([place] [[facility]] [facility]) Pt is here for regular check and filler up form. Body weight 117.4 [lb_av] 117.4 [lb_av] MONTE[place] Y ([facility]) Pt is here for regular check and filler up form. Body height 59 [in_us] 59 [in_us] MARENGO ([facility]) Pt is here for regular check and filler up form. Body temperature 98 [degF] 98 [degF] MARENGO ([facility]) Pt is here for regular check and filler up form. Heart rate 80 /min 80 /min MARENGO ([facility]) Pt is here for regular check and filler up form. Diastolic blood pressure 66 mm[Hg] 66 mm[Hg] MARENGO ([facility]) Pt is here for regular check and filler up form. Systolic blood pressure 103 mm[Hg] 103 mm[Hg] G [facility] ([facility]) Pt is here for regular check and filler up form. Body temperature 98.1 [degF] 98.1 [degF] SUSANNAH AY ([facility]) Pt. presenting for pre-employment form c ompletion. Heart rate 67 /min 67 /min VEE ([facility]) Pt. presenting for pre-employment form c ompletion. Diastolic blood pressure 61 mm[Hg] 61 mm[Hg] VEE ([facility]) Pt. presenting for pre-employment form c ompletion. Systolic blood pressure 92 mm[Hg] 92 mm[Hg] G REENWAY ([facility]) Pt. presenting for pre-employment form c ompletion. PhenX - pain, abdominal - type and 0 0 VEE ([facility]) Pt. presenting for pre-employment form c ompletion. Body surface area Derived from 1.53 m2 1.53 m2 MARENGO ([facility]) Pt. presenting for pre-employment form c ompletion. Body mass index (BMI) 26.1 kg/m2 26.1 kg/m2 GRE ENWAY ([place] [facility] Pt. presenting for pre-employment form c ompletion. Body weight 129 [lb_av] 129 [lb_av] VEE ([facility]) Pt. presenting for pre-employment form c ompletion. Body height 59 [in_us] 59 [in_us] VEE ([facility]) Pt. presenting for pre-employment form c ompletion. Inhaled oxygen concentration 21 % 21 % MARENGO ([facility]) pt states she's here for job form to be filled out Inhaled oxygen flow rate 0 L/min 0 L/min MARENGO ([facility]) pt states she's here for job form to be filled out Oxygen saturation in Arterial blood 98 % 98 % MARENGO ([facility] by Pulse oximetry [facility]) pt states she's here for job form to be filled out PhenX - pain, abdominal - type and 0 0 VEE ([facility]) pt states she's here for job form to be filled out Body surface area Derived from 1.52 m2 1.52 m2 MARENGO ([facility]) pt states she's here for job form to be filled out Body mass index (BMI) 25.4 kg/m2 25.4 kg/m2 [facility] [facility]) pt states she's here for job form to be filled out Body weight 126 [lb_av] 126 [lb_av] VEE ([facility]) pt states she's here for job form to be filled out Body height 59 [in_us] 59 [in_us] VEE ([facility]) pt states she's here for job form to be filled out Body temperature 97.9 [degF] 97.9 [degF] GREENW AY ([facility]) pt states she's here for job form to be filled out Heart rate rhythm 1 1 GREEN Y ([facility]) pt states she's here for job form to be filled out Heart rate 77 /min 77 /min VEE ([facility]) pt states she's here for job form to be filled out Diastolic blood pressure 68 mm[Hg] 68 mm[Hg] VEE ([facility]) pt states she's here for job form to be filled out Systolic blood pressure 107 mm[Hg] 107 mm[Hg] [facility]) pt states she's here for job form to be filled out Body mass index (BMI) 26.5 kg/m2 26.5 kg/m2 [facility] ([place] [facility]) PT here for form fill out Body weight 131 [lb_av] 131 [lb_av] VEE ([facility]) PT here for form fill out Body height 59 [in_us] 59 [in_us] VEE ([facility]) PT here for form fill out Body temperature 98.4 [degF] 98.4 [degF] GREENW AY ([facility]) PT here for form fill out Heart rate 73 /min 73 /min VEE ([facility]) PT here for form fill out Diastolic blood pressure 62 mm[Hg] 62 mm[Hg] VEE ([facility]) PT here for form fill out Systolic blood pressure 102 mm[Hg] 102 mm[Hg] [facility] PT here for form fill out PhenX - pain, abdominal - type and 0 0 VEE ([facility]) PT here for form fill out Body surface area Derived from 1.54 m2 1.54 m2 VEE ([facility]) PT here for form fill out Body surface area Derived from 1.53 m2 1.53 m2 VEE ([facility]) patient present for lab results, lmp 06/18 Body mass index (BMI) 26.1 kg/m2 26.1 kg/m2 GRE ENWAY ([place] [facility]) patient present for lab results, lmp 06/18 Body weight 129 [lb_av] 129 [lb_av] VEE ([facility]) patient present for lab results, [facility] 06/18 Body height 59 [in_us] 59 [in_us] VEE ([facility]) patient present for lab results, [facility] 06/18 Body temperature 97.4 [degF] 97.4 [degF] [facility] ([facility]) patient present for lab results, [facility] 06/18 Respiratory rate 18 /min 18 /min VEE ([facility]) patient present for lab results, lmp 06/18 Heart rate 86 /min 86 /min MARENGO ([facility]) patient present for lab results, [facility] 06/18 Diastolic blood pressure 75 mm[Hg] 75 mm[Hg] VEE ([facility]) patient present for lab results, lmp 06/18 Systolic blood pressure 122 mm[Hg] 122 mm[Hg] [facility] patient present for lab results, [facility] 06/18 Body mass index (BMI) 33.1 kg/m2 33.1 kg/m2 GRE ENWAY ([place] 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, patient states her menses is irregualar, lmp 08/08/18 Respiratory rate 18 /min 18 /min VEE ([facility]) patient present for ferry hand annual, patient states her menses is irregualar, [facility] 08/08/18 Heart rate 87 /min 87 /min VEE ([facility]) patient present for ferry hand annual, patient states her menses is irregualar, [facility] 08/08/18 Diastolic blood pressure 77 mm[Hg] 77 mm[Hg] VEE ([facility]) patient present for ferry hand annual, patient states her menses is irregualar, [facility] 08/08/18 Systolic blood pressure 118 mm[Hg] 118 mm[Hg] G REENWAY ([facility]) patient present for ferry hand annual, patient states her menses is irregualar, [facility] 08/08/18 PhenX - pain, abdominal - type and 0 0 VEE ([facility]) patient present for ferry hand annual, patient states her menses is irregualar, [facility] 08/08/18 Body surface area Derived from 1.69 m2 1.69 m2 VEE ([facility]) patient present for ferry hand annual, patient states her menses is irregualar, [facility] 08/08/18 Body height 59 [in_us] 59 [in_us] VEE ([facility]) Body mass index (BMI) 25.9 kg/m2 25.9 kg/m2 GRE ENWAY ([place] [facility]) pt here for missed period Body weight 128 [lb_av] 128 [lb_av] VEE ([facility]) pt here for missed period Body height 59 [in_us] 59 [in_us] VEE ([facility]) pt here for missed period Body temperature 98.8 [degF] 98.8 [degF] SUSANNAH AY ([facility]) pt here for missed period Heart rate 84 /min 84 /min VEE ([facility]) pt here for missed period Diastolic blood pressure 59 mm[Hg] 59 mm[Hg] VEE ([facility]) pt here for missed period Systolic blood pressure 90 mm[Hg] 90 mm[Hg] G [facility] ([facility]) pt here for missed period PhenX - pain, abdominal - type and 0 0 VEE ([facility]) pt here for missed period Body surface area Derived from 1.53 m2 1.53 m2 VEE ([facility]) pt here for missed period PhenX - pain, abdominal - type and 0 0 VEE ([facility]) PT here for medical results. Body surface area Derived from 1.62 m2 1.62 m2 VEE ([facility]) PT here for medical results. Body mass index (BMI) 29.9 kg/m2 29.9 kg/m2 [facility] ([place] [facility]) PT here for medical results. Body weight 148 [lb_av] 148 [lb_av] VEE ([facility]) PT here for medical results. Body height 59 [in_us] 59 [in_us] VEE ([facility]) PT here for medical results. Body temperature 98 [degF] 98 [degF] MARENGO ([facility]) PT here for medical results. Heart rate 71 /min 71 /min MARENGO ([facility]) PT here for medical results. Diastolic blood pressure 65 mm[Hg] 65 mm[Hg] VEE ([facility] [facility]) PT here for medical results. Systolic blood pressure 99 mm[Hg] 99 mm[Hg] [facility] PT here for medical results. PhenX - pain, abdominal - type and 0 0 VEE ([facility]) PT HERE FOR PAPER FILL OUT Body surface area Derived from 1.51 m2 1.51 m2 [place] ([facility]) PT HERE FOR PAPER FILL OUT Body mass index (BMI) 25.2 kg/m2 25.2 kg/m2 [place] ([place] [[facility]) PT HERE FOR PAPER FILL OUT Body weight 125 [lb_av] 125 [lb_av] VEE ([facility]) PT HERE FOR PAPER FILL OUT Body height 59 [in_us] 59 [in_us] VEE ([facility]) PT HERE FOR PAPER FILL OUT Body temperature 97.3 [degF] 97.3 [degF] [facility] [facility] ([facility]) PT HERE FOR PAPER FILL OUT Heart rate 60 /min 60 /min VEE ([facility]) PT HERE FOR PAPER FILL OUT Diastolic blood pressure 65 mm[Hg] 65 mm[Hg] VEE ([facility]) PT HERE FOR PAPER FILL OUT Systolic blood pressure 101 mm[Hg] 101 mm[Hg] [facility] PT HERE FOR PAPER FILL OUT PhenX - pain, abdominal - type and 0 0 VEE ([facility]) Pt here today for CPE Body surface area Derived from 1.52 m2 1.52 m2 VEE ([facility]) Pt here today for CPE Body mass index (BMI) 25.7 kg/m2 25.7 kg/m2 [place] ([place] [[facility]) Pt here today for CPE Body weight 127 [lb_av] 127 [lb_av] VEE ([facility]) Pt here today for CPE Body height 59 [in_us] 59 [in_us] VEE ([facility]) Pt here today for CPE Body temperature 97.8 [degF] 97.8 [degF] [facility] [facility] ([facility]) Pt here today for CPE Heart rate 78 /min 78 /min VEE ([facility]) Pt here today for CPE Diastolic blood pressure 65 mm[Hg] 65 mm[Hg] VEE ([facility]) Pt here today for CPE Systolic blood pressure 103 mm[Hg] 103 mm[Hg] G [place] ([facility]) Pt here today for CPE PhenX - pain, abdominal - type and 0 0 VEE ([facility]) patient present for post- visit, n o complaints Body surface area Derived from 1.49 m2 1.49 m2 VEE ([facility]) patient present for post- visit, n o complaints Body mass index (BMI) 24.4 kg/m2 24.4 kg/m2 [place] ([place] [[facility]) patient present for post- visit, n o complaints Body weight 121 [lb_av] 121 [lb_av] VEE ([facility]) patient present for post- visit, n o complaints Body height 59 [in_us] 59 [in_us] VEE ([facility]) patient present for post- visit, n o complaints Body temperature 97 [degF] 97 [degF] VEE ([facility]) patient present for post- visit, n o complaints Heart rate 68 /min 68 /min VEE ([facility]) patient present for post- visit, n o complaints Diastolic blood pressure 76 mm[Hg] 76 mm[Hg] VEE ([facility]) patient present for post- visit, n o complaints Systolic blood pressure 113 mm[Hg] 113 mm[Hg] G [place] ([facility]) patient present for post- visit, n o complaints PhenX - pain, abdominal - type and 0 0 VEE ([facility]) patient present for vaginal check Body surface area Derived from 1.58 m2 1.58 m2 VEE ([facility]) patient present for vaginal check Body mass index (BMI) 28.3 kg/m2 28.3 kg/m2 GRE EN[place]AY ([place] [[facility]) patient present for vaginal check Body weight 140 [lb_av] 140 [lb_av] VEE ([facility]) patient present for vaginal check Body height 59 [in_us] 59 [in_us] VEE ([facility]) patient present for vaginal check Body temperature 98.1 [degF] 98.1 [degF] [facility] patient present for vaginal check Respiratory rate 18 /min 18 /min VEE ([facility]) patient present for vaginal check Heart rate 79 /min 79 /min VEE ([facility]) patient present for vaginal check Diastolic blood pressure 75 mm[Hg] 75 mm[Hg] VEE ([facility]) patient present for vaginal check Systolic blood pressure 110 mm[Hg] 110 mm[Hg] [facility] ([facility]) patient present for vaginal check Body height 59 [in_us] 59 [in_us] VEE ([facility]) vaginal repair evaluaion s/p vaginal del pauly Respiratory rate 18 /min 18 /min [place] ([facility]) vaginal repair evaluaion s/p vaginal del pauly Heart rate 96 /min 96 /min [place] ([facility]) vaginal repair evaluaion s/p vaginal del pauly Diastolic blood pressure 67 mm[Hg] 67 mm[Hg] [place] ([facility]) vaginal repair evaluaion s/p vaginal del pauly Systolic blood pressure 102 mm[Hg] 102 mm[Hg] [facility] ([facility]) vaginal repair evaluaion s/p vaginal del pauly PhenX - pain, abdominal - type and 0 0 VEE ([facility]) patient present for f/u and NST monitoring Body surface area Derived from 1.56 m2 1.56 m2 [place] ([facility]) patient present for f/u and NST monitoring Body mass index (BMI) 27.1 kg/m2 27.1 kg/m2 [place] ([place] [[facility]) patient present for f/u and NST monitoring Body weight 134 [lb_av] 134 [lb_av] VEE ([facility]) patient present for f/u and NST monitoring Body height 59 [in_us] 59 [in_us] VEE ([facility]) patient present for f/u and NST monitoring Body temperature 97.2 [degF] 97.2 [degF] [facility] ([facility]) patient present for f/u and NST monitoring Respiratory rate 18 /min 18 /min [place] ([facility]) patient present for f/u and NST monitoring Heart rate 107 /min 107 /min [place] ([facility]) patient present for f/u and NST monitoring Diastolic blood pressure 72 mm[Hg] 72 mm[Hg] [place] ([facility]) patient present for f/u and NST monitoring Systolic blood pressure 105 mm[Hg] 105 mm[Hg] G [facility] ([facility]) patient present for f/u and NST monitoring PhenX - pain, abdominal - type and 0 0 [place] ([facility]) PATIENT HERE FOR FOLLOW UPLMP: 07/02/17 Body surface area Derived from 1.56 m2 1.56 m2 [place] ([facility]) PATIENT HERE FOR FOLLOW UPLMP: 07/02/17 Body mass index (BMI) 27.1 kg/m2 27.1 kg/m2 [place] ([place] [[facility]) PATIENT HERE FOR FOLLOW UPLMP: 07/02/17 Body weight 134 [lb_av] 134 [lb_av] [place] ([facility]) PATIENT HERE FOR FOLLOW UPLMP: 07/02/17 Body height 59 [in_us] 59 [in_us] [place] ([facility]) PATIENT HERE FOR FOLLOW UPLMP: 07/02/17 Body temperature 94.1 [degF] 94.1 [degF] [facility] ([facility]) PATIENT HERE FOR FOLLOW UPLMP: 07/02/17 Heart rate 102 /min 102 /min [place] ([facility]) PATIENT HERE FOR FOLLOW UPLMP: 07/02/17 Diastolic blood pressure 66 mm[Hg] 66 mm[Hg] [place] ([facility]) PATIENT HERE FOR FOLLOW UPLMP: 07/02/17 Systolic blood pressure 96 mm[Hg] 96 mm[Hg] [facility] ([facility]) PATIENT HERE FOR FOLLOW UPLMP: 07/02/17 PhenX - pain, abdominal - type and 0 0 [place] ([facility]) PATIENT HERE FOR FOLLOW UP Body surface area Derived from 1.54 m2 1.54 m2 VEE ([facility]) PATIENT HERE FOR FOLLOW UP Body mass index (BMI) 26.3 kg/m2 26.3 kg/m2 [place] [facility] [facility] PATIENT HERE FOR FOLLOW UP Body weight 130 [lb_av] 130 [lb_av] VEE ([facility] PATIENT HERE FOR FOLLOW UP Body height 59 [in_us] 59 [in_us] VEE ([facility]) PATIENT HERE FOR FOLLOW UP Body temperature 98.6 [degF] 98.6 [degF] [facility] ([facility]) PATIENT HERE FOR FOLLOW UP Heart rate 97 /min 97 /min VEE ([facility]) PATIENT HERE FOR FOLLOW UP Diastolic blood pressure 62 mm[Hg] 62 mm[Hg] VEE ([facility]) PATIENT HERE FOR FOLLOW UP Systolic blood pressure 98 mm[Hg] 98 mm[Hg] G [place] ([facility]) PATIENT HERE FOR FOLLOW UP Patient Treatment Plan of Care Planned Activity Planned Date Details Description Data Source (s) ferrous sulfate 325 MG 09/23/2019 12:00:00 VEE ([place] Oral Tablet [facility]) [facility] Vitamin D3 1000UNIT 07/29/2019 12:00:00 VEE ([place] Oral Tablet Chewable [facility]) Amoxicillin 500 MG Oral 07/14/2018 12:00:00 VEE ([place] Tablet AM [facility]) Betadine 5% External 04/18/2018 12:00:00 VEE ([place] Solution [facility]) 28-0.8MG Oral 03/13/2018 12:00:00 VEE ([place] Tablet [facility]) 28-0.8MG Oral 09/18/2017 12:00:00 VEE ([place] Tablet [facility]) [facility] Iron 325 (65 Fe)MG 09/18/2017 12:00:00 VEE ([place] Oral Tablet [facility])
--- OUTSIDE RECORDS SUMMARY | 2020-08-17 20:36 | XMS ---
:1980 Author Organization [facility] Care Team Providers Name Role Phone NOREEN RAMOS Unavailable Unavailable Khloe De Luna Unavailable AMOS SILVA, WELLINGTON Unavailable AMOS SILVA, WELLINGTON Unavailable AMOS SILVA, WELLINGTON Unavailable AMOS SILVA, WELLINGTON Unavailable AMOS SILVA, WELLINGTON Unavailable OYEKOLA SECURITY OFFICER, MOBOLAJI Unavailable OYEKOLA SECURITY OFFICER, MOBOLAJI Unavailable OYEKOLA SECURITY OFFICER, MOBOLAJI Unavailable Marianne Taveras Unavailable AGYEPONG SECURITY OFFICER Unavailable AGYEPONG SECURITY OFFICER Unavailable Amelmah Unavailable Unavailable Amelmah Unavailable Unavailable Amelmah Unavailable Unavailable Amelmah Unavailable Unavailable GHULAM CNM Unavailable GHULAM CNM Unavailable CHRISTINA SECURITY OFFICER Unavailable CHRISTINA SECURITY OFFICER Unavailable MEAGHAN DDS Unavailable + ROSI DMD Unavailable + PETE MD Unavailable + PETE MD Unavailable + PETE MD Unavailable + JACK CNM Unavailable + DUANE SECURITY OFFICER Unavailable + DUANE SECURITY OFFICER Unavailable + BUCK MD Unavailable + PETE [...] is protected by Article 27-F of the [facility] Public Health law. If you continue you may haveaccess to information: Regarding HIV / AIDS; Provided by facilities licensed or operated by the [facility] Office of Mental Health; or Provided by the [facility] Office for People With Developmental Disabilities. If such information is present, then the following [facility] mandated warning applies: This information has been [...] law may result in a fine or long-term sentence or both. A general authorization for the release of medical or other information is NOT sufficient authorization for further disclosure. Allergies and Adverse Reactions Type Description Substance Reaction Status Data Source(s ) Allergy to No Known Allergies No known GREENW AY ([facility] substance allergies [facility] ) Allergy to No Known Allergies No known GREENW AY ([facility] substance allergies [facility] ([facility] ) Allergy to No Known Allergies No known GREENW AY ([facility] substance allergies [facility] ) Allergy to No Known Allergies No known GREENW AY ([facility] substance allergies [facility] ([facility] ) Allergy to No Known Allergies No known GREENW AY ([facility] substance allergies [facility] ) Allergy to No Known Allergies No known GREENW AY ([facility] substance allergies [facility] ([facility] ) Allergy to No Known Allergies No known GREENW AY ([facility] substance allergies [facility] ) Allergy to No Known Allergies No known GREENW AY ([facility] substance allergies [facility] ([facility] ) Allergy to No Known Allergies No known GREENW AY ([facility] substance allergies [facility] ([facility] ) Allergy to No Known Allergies No known GREENW AY ([facility] substance allergies [facility] ([facility] ) Allergy to No Known Allergies No known GREENW AY ([facility] substance allergies [facility] ([facility] ) Allergy to No Known Allergies No known GREENW AY ([facility] substance allergies [facility] ) Encounters Encounter Providers Location Date Indications Data Source(s ) Outpatient<td Attender: Douglas OverweightRisk: GREENW AY ([facility] ID="encounterT [facility] 0 Menstrual [place] ypeDescription [facility] 09:45:00 Irregularities Ne ighborhood ID0">WALKINS</ AM [facility] ter) td><td>MOBOLA I OYEKONM 0 [facility]</td><td>Yo 10:18:06 nkers [facility]</td><td >12/30/2019</t d><td><content ID="encounterD iagnosisID0-0" >Risk: Menstrual Irregularities </content>, <content ID="encounterD iagnosisID0-1" >Overweight</c ontent></td> Overweight Risk: Menstrual Irregularities Outpatient<td Attender: Douglas 11/09/2019 VEE ID="encounterTypeDescriptionID2">DENTAL [facility] 10:00:0 0 AM (Susan Scherer RE-CALL VISIT</td><td>[facility] DDS Health EST - Neighborhood DDS</td><td>[facility] 11/09/2019 Health Center</td><td>11/09/2019</td><td></td> 11:59:0 0 PM Center) EST Outpatient<td Attender: Douglas 11/09/2019 VEE ID="encounterTypeDescriptionID1">[facility] 10:00: 00 AM (Susan Scherer ISIT</td><td>[facility] EST - Neighborhood Mjz</td><td>[facility] z Center 9 Health Health 11:59:00 PM Center) Center</td><td>11/09/2019</td><td></td> EST Outpatient<td Attender: Douglas 11/04/2019 O PENASCO ID="encounterTypeDescriptionID3">WALKINS [facility] 12:00: 00 PM v (Susan Scherer </td><td>[facility] EST - e Neighborhood SECURITY OFFICER</td><td>[facility] Health SECURITY OFFICER Center 11/04/2019 r Health Center</td><td>11/04/2019</td><td><janeth 12:22: 30 [...] Examina tion Outpatient<td Attender: Douglas 09/23/2019 OverweightAnemiaOverweightAnemiaOverweightAnemia PENASCO ID="encounterTypeDescriptionID4">[place]ALKINS</td><td>JANET WRIGHT [facility] 02:30:00 PM (Susan Scherer [facility] SECURITY OFFICER</td><td>[facility] ED T - Neighborhood Center</td><td>09/23/2019</td><td><content SECURITY OFFICER Center 09/02 Health ID="encounterDiagnosisID4-0">Anemia</content>, <content 03:29:09 PM Center) ID="encounterDiagnosisID4-1">Overweight</content></td> EDT Overweight Anemia Overweight Anemia Overweight Anemia Outpatient<td Attender: Douglas 08/26/2019 PENASCO ID="encounterTypeDescriptionID5">WALKINS</td><td>AUSTIN JOHNSON [facility] 10:00:00 AM ([place] PETE SILVA</td><td>[facility] PETE SILVA Health EDT - Neighborhood Center</td><td>08/26/2019</td><td></td> Center [facility] Health 11:59:00 PM Center) EDT Outpatient Attender: Ankush 08/19/2019 [facility] 12:46:00 PM Medical PETE EDT Center VIRA dmitter: EMILY GAN eferrer: EMILY DIAZ Outpatient<td Attender: Douglas 07/30/2019 PENASCO ID="encounterTypeDescriptionID6">*OUTREACH*</td><td>[facility] 12:30:00 PM ([facility] SECURITY OFFICER</td><td>[facility] EDT - Neighborhood Center</td><td>07/30/2019</td><td></td> SECURITY OFFICER Center [address] [place] [address] 11:59:00 PM Center) EDT Outpatient<td Attender: Douglas 07/29/2019 Joshua BAXTER ID="encounterTypeDescriptionID7">WALKINS</td><td>JANET WRIGHT [facility] 02:00:00 PM e ([facility] SECURITY OFFICER</td><td>[facility] ED T - u Neighborhood Center</td><td>07/29/2019</td><td><content SECURITY OFFICER Center 07/03 k Health ID="encounterDiagnosisID7-0">Vitamin D 03:02:53 [...] Medical Examinat ions Outpatient<td Attender: Douglas 07/29/2019 PENASCO ID="encounterTypeDescriptionID8">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 [facility] 12:00:00 P M ([place] ANNUAL</td><td>AUSTIN FREEMAN MD [facility] EDT - [facility] </td><td>[facility] 07/29/2019 Health Center</td><td>07/29/2019</td><td></td> 01:54:3 9 PM Center) EDT Outpatient<td Attender: Douglas 07/27/2019 PENASCO ID="encounterTypeDescriptionID9">*[facility] 12:58: 00 PM ([place] *</td><td>[facility] A[facility]T [facility] SECURITY OFFICER</td><td>[facility] SECURITY OFFICER Center 07/27/2019 Health Center</td><td>07/27/2019</td><td></td> 11:59:0 0 PM Center) EDT Outpatient<td Attender: Douglas 07/15/2019 Tyshawn BAXTER ID="dr[id number]">[facility] 11:15: 00 AM o ([facility]</td><td>[facility] EDT - u [facility] SECURITY OFFICER</td><td>[facility] SECURITY OFFICER Center 07/15/2019 [facility] Center</td><td>07/15/2019</td><td><janeth 12:55: 43 PM i Center) nt ID="pralficpnOrcwindtnAY78-7">Routine EDT n Pre-employment Screening e Examination</content></td> P [...] tion Outpatient<td Attender: Douglas 03/10/2019 Routine Pre-employment PENASCO ID="cvymlvgttBqqqAcqbkifrnvaQW25">WALKINS</td><td>[facility] 11:30:00 AM Screening ([facility]</td><td>[facility] - [facility]</td><td>03/10/2019</td><td><content SECURITY OFFICER Center 03/10/2019 Pre-employment Screening Health ID="mhfbbgklmXiehntzyrGC65-0">Overweight</content>, 01:08:35 [facility]) <content ID="dtabeahrcQvinfygfyOW55-1">Routine EDT Pre-employment Screening Pre-employment Screening Examination</content></td> ExaminationOverweightRoutine [...] Examina tion Overweight Outpatient<td Attender: Douglas 03/02/2019 PENASCO ID="niovnmviiMpdoMrshtoypfmbHN61">PATIENT Khloe [facility] 12:24 :00 PM ([place] ADVOCACY</td><td>[facility] EDT - Ne [facility]</td><td>[facility] 2018 Health Center</td><td>03/02/2019</td><td></td> 11:59:0 0 PM Center) EDT Outpatient<td Attender: Douglas 03/02/2019 R PENASCO ID="tgkzarttwFsmnOdjclpjtzxtQJ97">[facility] 10:1 5:00 AM o ([place] /td><td>[facility] EDT - [facility] SECURITY OFFICER</td><td>[facility] SECURITY OFFICER Center 03/02/2019 Health Center</td><td>03/02/2019</td><td><content 12:1 6:59 PM i Center) ID="kxynczbevQklrngjubRG09-7">Overweight</ EDT n content>, <content e ID="irdcppvpmAfaiimvukAE67-5">Routine P Pre-employment Screening r Examination</content></td> e - [...] Examina tion Overweight Outpatient<td Attender: Douglas 02/20/2019 PENASCO ID="rkzhdjzymRrixWawqpyanmqxBM87">DENTALVISIT</td><td>Marianne Lopes [facility] 12:45:00 PM ([place] Alexsandra TejaIsma</td><td>[facility] EDT - Neighborhood Center</td><td>02/20/2019</td><td></td> Center 019 Health 11:59:00 PM Center) EDT Outpatient<td ID="uddjqudkzIqozOyjywnvknwrRI97">DENTAL Attender: Douglas 02/20/2019 VEE RE-CALL VISIT</td><td>[facility] 12 :30:00 PM ([place] DMD</td><td>[facility] EDT - Neighborhood Center</td><td>02/20/2019</td><td></td> IA DMD Center 019 Health 11:59:00 PM Center) EDT Outpatient<td ID="pqupqwbakWvpuLpigxjoedzjFK35">*No Attender: Douglas 10/28/2018 VEE Show*</td><td>Francisca Carde</td><td>[facility] 10:50:00 AM ([facility]</td><td>10/28/2018</td><td></td> [facility] 10/28/2018 Health 11:59:00 PM Center) EST Outpatient<td ID="tbtiwydqnDlpfLkvfvcctbqgTJ59">OFFICE Attender: Douglas 09/26/2018 O PENASCO VISIT</td><td>[facility] JEANNETTE SECURITY OFFICER</td><td>[facility] 10:30:00 AM v ([facility]</td><td>09/26/2018</td><td><content OYEKira [facility] Health EDT - e Neighborhood ID="fdwulrwrkQbvxmmdfsMI81-6">Overweight</content></td> Ce nter 09/26/2018 r Health 01:32:17 PM [...] Overweight Overweight Overweight Outpatient<td Attender: Douglas 09/24/2018 PENASCO ID="eyrqgaslmIvnjHvcvgefvncsOU64">WALKINS</td><td>[facility] 12:00:00 PM ([facility]</td><td>[facility] ED T - [facility]</td><td>09/24/2018</td><td></td> CN Center [address] [place] [address] 04:51:12 PM Center) EDT Outpatient<td ID="ns[id number]">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: Douglas 09/17/2018 PE[place]SCO ANNUAL</td><td>AUSTIN FREEMAN MD</td><td>Douglas watkins 10:30:00 AM ([facility]</td><td>09/17/2018</td><td></td> PETE SILVA [facility] - Neighborhood Center 09/17/2018 Health 12:33:59 PM Center) EDT Outpatient<td Attender: Douglas 09/12/2018 O PENASCO ID="vztvjeyrtRaudXnjlwkorpagWV40">WALKINS</td><td>JARED WRIGHT [facility] 09:15:00 AM v ([place] I ANA LUISAKONM SECURITY OFFICER</td><td>[facility] EDT - e Neighborhood Center</td><td>09/12/2018</td><td><content SECURITY OFFICER Center 09/01 r Health ID="yqtnapmgqOxagjarclFM93-5">Overweight</content></td> 10:24:14 AM w Center) EDT e i [...] Outpatient<td Attender: Douglas 07/17/2018 LeukopeniaLeukopeniaLeukopeniaLeukopeniaLeukopeniaLeukopeniaLeukopeniaLeukopenia LeukopeniaLeukopeniaLeukopeniaLeukopenia VEE ID="iecunuvdaQxjhEwujmduuweyAG21">WALKINS</td><td>[facility] 11:00:00 AM ([facility]</td><td>[facility] E DT - Neighborhood Center</td><td>07/17/2018</td><td><content SECURITY OFFICER Center 07/02 Health ID="obhhzzqekXhkptkxxgHJ61-2">Leukopenia</content></td> 12:11:01 PM Center) EDT Leukopenia Leukopenia Leukopenia Leukopenia Leukopenia Leukopenia Leukopenia Leukopenia Leukopenia Leukopenia Leukopenia Leukopenia Outpatient<td Attender: Douglas 07/15/2018 VEE ID="jrkoqqdvhTnxfErsrsknboxwGP40">*OUTREACH*</td><td>[facility] 06:12:00 PM ([facility]</td><td>[facility] E DT - Neighborhood Center</td><td>07/15/2018</td><td></td> SECURITY OFFICER Center [address] [place] [address] 11:59:00 PM Center) EDT Outpatient<td Attender: Douglas 07/15/2018 PENASCO ID="klgaefwdlCxceAfctehxgxtdGC78">DENTALVISIT</td><td>RADHAMEAGHAN LEON A [facility] 04:00:00 PM ([facility] DENT HY</td><td>[facility] EDT - Neighborhood Center</td><td>07/15/2018</td><td></td> DENT HY Center [address] [place] [address] 11:59:00 PM Center) EDT Outpatient<td Attender: Douglas 07/14/2018 U PENASCO ID="hvqjfzfejKaynXdbgdnxelxvEE16">WALKINS</td><td>BALA MCKENNA [facility] 11:00:00 AM r ([facility] SECURITY OFFICER</td><td>[facility] E DT - i Neighborhood Center</td><td>07/14/2018</td><td><content SECURITY OFFICER Center 07/02 Health ID="wcsiuiclbIxwyofrpkEE59-5">Urinary Tract 12: 40:49 PM a Center) Infection</content></td> [...] Urinary Tract Infection Outpatient<td Attender: Douglas 07/11/2018 PENASCO ID="oauafvuvyLgktPrfoupjycwaUF77">*OUTREACH*</td><td>[facility] 04:47:00 PM ([facility]</td><td>[facility] E DT - Neighborhood Center</td><td>07/11/2018</td><td></td> [facility] [address] [place] [address] 11:59:00 PM Center) EDT Outpatient<td ID="xpvgjqmfsEifdYmztdyzaftyVQ37">COMPLETE Attende r: Douglas 07/11/2018 R PENASCO PHYSICAL EXAM</td><td>[facility]</td><td>[facility] 09:00:00 AM o ([facility]</td><td>07/11/2018</td><td><[facility] EDT - u Neighborhood ID="pzsdtsxosXwpbehxyvSP94-0">Routine Pre-employment SECURITY OFFICER Cente r 07/11/2018 t Health Screening Examination</content></td> 11:17:24 A M i [place]) EDT n e P r e - [...] Screening Examina tion Outpatient<td Attender: Douglas 07/09/2018 PENASCO ID="fi[id number]">WALKINS</td><td>[facility] 11:30:00 AM ([facility] SECURITY OFFICER</td><td>[facility] E DT - [facility]</td><td>07/09/2018</td><td></td> SECURITY OFFICER [place] [address] [place] [address] 04:48:57 PM Center) EDT Outpatient<td ID="kbnierpfbDaupDqzvxizstugPB34">*No Attender: Douglas 06/28/2018 PENASCO Show*</td><td>WELLINGTON TRINIDAD MD</td><td>[facility] 01:19:00 PM ([facility]</td><td>06/28/2018</td><td></td> AMOS [facility] 06/28/2018 Health 11:59:00 PM Center) EDT Outpatient<td ID="ncyinfbbkHaooPeynwtspmuyNS37">DENTAL Attender: Douglas 06/19/2018 PE[place]SCO INITIAL VISIT</td><td>AYE HARDING DDS</td><td>[facility] 12:30:00 PM ([facility]</td><td>06/19/2018</td><td></td> MEAGHAN PETTY [facility] 06/19/2018 Health 11:59:00 PM Center) EDT Outpatient<td Attender: Douglas 06/14/2018 PENASCO ID="hvobpnzkjGcygZszecfgnivaDQ73">[place] [address] 1:00:00 AM ([facility]</td><td>WELLINGTON TRINIDAD MD</td><td>[facility]</td><td>06/14/2018</td><td></td> MD [place] 06/14/2018 Health 11:59:00 PM Center) EDT Outpatient<td ID="gtekqmehbDzbnCqmpylgcogdGY42">OFFICE Attender: Douglas 05/30/2018 VEE VISIT</td><td>[facility] CN</td><td>[facility] 10:00:00 AM ([facility]</td><td>05/30/2018</td><td></td> GHULAM CNM H ealt EDT - [facility] Center 05/30/2018 Health 03:32:25 PM Center) EDT Outpatient<td Attender: Douglas 04/30/2018 VEE ID="jk[id number]">[place]ALKINS</td><td>[facility] 11:15:00 AM ([facility]</td><td>[facility] ED T [facility]</td><td>04/30/2018</td><td></td> Center [address] [place] [address] 12:22:40 PM Center) EDT Outpatient<td Attender: Douglas 04/18/2018 VEE ID="dwuymizdfLbhnOswttnfzkckQA63">WALKINS</td><td>[facility] 11:15:00 AM ([facility] GHULAM CN</td><td>[facility] Health ED T [facility]</td><td>04/18/2018</td><td></td> Center [address] [place] [address] 02:29:55 PM Center) EDT Outpatient<td ID="cjattzbyoExpdRivecksqdhySH70">HOSPITAL Attende r: Jessenia 04/12/2018 VEE DELIVERY</td><td>SIDNEY OSEI MD</td><td>[facility] 09:44:00 AM ([facility] EDT [facility]</td><td>04/12/2018</td><td></td> Medical [address] [place] [address] Center 11:59:00 PM Center) EDT Outpatient<td Attender: Douglas 04/10/2018 VEE ID="dphpqmzokNadsWbqzzaixdapMU43">[place]ALKINS</td><td>JJ SPRINGER [facility] 12:00:00 PM (Susan LUNA GHULAM CNM</td><td>[facility] GHULAM CNM [facility] ED T - Neighborhood Center</td><td>04/10/2018</td><td></td> Center [facility] Health 01:34:08 PM Center) EDT Outpatient<td Attender: 04/08/2018 VEE ID="qykfxiaecXerkGcdlonvzoudAY01">*Phone*</td><td>LORRAI HERMAN 12:34:00 PM (Susan LUNA GHULAM CNM</td><td> GHULAM CN EDT - [facility] </td><td>04/08/2018</td><td></td> 04/08/2018 Health 11:59:00 PM Center) EDT Outpatient<td ID="ztbznwksgUpknQyqmbvaxpylMN87">*No Attender: 04/07/2018 VEE Show*</td><td>HERMAN GHULAM CNM</td><td> HERMAN 03:18: 00 PM (Susan Scherer </td><td>04/07/2018</td><td></td> GHULAM CN EDT - Neighborhood 04/07/2018 Health 11:59:00 PM Center) EDT Outpatient<td Attender: Douglas 03/24/2018 VEE ID="rczfpxqifSblqQgdeztjfbppRQ75">WALKINS</td><td>MYNORI GIAN [facility] 12:30:00 PM (Susan LUNA GHULAM CNM</td><td>[facility] Health ED T - Neighborhood Center</td><td>03/24/2018</td><td></td> Center [facility] Health 01:12:02 PM Center) EDT Outpatient<td Attender: Douglas 03/13/2018 VEE ID="pekxyzbqeUnknOtwdnesxziwBF03">[place]ALKINS</td><td>[facility] 01:00:00 PM ([facility] CN</td><td>[facility] Health T - Neighborhood Center</td><td>03/13/2018</td><td></td> Center [address] [place] [address] 01:43:38 PM Center) EDT Outpatient<td Attender: Douglas 01/30/2018 VEE ID="fkvgckssuVeeaHcgdozllkhhEX55">NUTRITION INITIAL [facility] 01:30:00 PM ([place] VISIT</td><td>[facility]</td><td>[facility]</td><td>01/30/2018</td><td></td> C enter 01/30/2018 [facility] 02:28:04 PM Center) EST Outpatient<td Attender: Douglas 01/27/2018 VEE ID="qpccgfivdTubmRgfdwnkaimoAG89">[place]ALKINS</td><td>[facility] 12:30:00 PM ([facility]</td><td>[facility]</td><td>01/27/2018</td><td></td> Center [address] [place] [address] 01:50:28 PM Center) EST Outpatient<td Attender: Douglas 01/10/2018 PENASCO ID="dyjtckpcwRgmeGcgaauecbrzQV54">WALKINS</td><td>[facility] 09:30:00 AM ([facility] CNM</td><td>[facility]</td><td>01/10/2018</td><td></td> Center 018 [facility] 10:59:17 AM Center) EST Outpatient<td ID="jovpefxmrHwaeNmfksdepdocWE98"> Attende r: Douglas 12/03/2017 PENASCO SONOGRAM</td><td>RADHA BUCK MD</td><td>[facility] 10:30:00 AM ([facility]</td><td>12/03/2017</td><td></td> [facility] 12/03/2017 Health 12:06:55 PM Center) EST Outpatient<td ID="hkrebejthEbnwJysvsvvlnzkGW59"> Attende r: Douglas 11/27/2017 VEE FOLLOW UP</td><td>HERMAN GHULAM CNM</td><td>[facility] 12:30:00 PM ([facility]</td><td>11/27/2017</td><td></td> GHULAM CNM [facility] 11/27/2017 Health 01:38:21 PM Center) EST Obstetrics<td ID="xickobjefPqgbHwpkujigfbiMF52"> Attende r: Douglas 11/22/2017 P VEE FOLLOW UP</td><td>AUSTIN FREEMAN MD</td><td>[facility] 10:00:00 AM r ([facility] PETE SILVA [facility] EST - e [facility]</td><td>11/22/2017</td><td><content Center 11/02 Health ID="[id number]"></content></td> 12:31:01 PM n [place]) EST a n c y P r [...] c y Outpatient<td Attender: Douglas 11/11/2017 VEE ID="asqfwvttzEkgnKjwgwsmqeodOC22">WALKINS</td><td>[facility] 12:00:00 PM ([place] GHULAM CNM</td><td>[facility] - Neighborhood Center</td><td>11/11/2017</td><td></td> Center [address] [place] [address] 11:59:00 PM Center) EST Outpatient<td Attender: Douglas 11/11/2017 VEE ID="scgsgztqfHmqzDpeqyzlgyhnTV57">WALKINS</td><td>HERMAN RODRIRA [facility] 12:00:00 PM ([facility] CNM</td><td>[facility] EST - Neighborhood [place]</td><td>11/11/2017</td><td></td> Center [address] [place] [address] 02:09:33 PM Center) EST Outpatient<td ID="qwqlofwysVqvpTbxusawdtmbAA97"> Attende r: Douglas 10/31/2017 PENASCO FOLLOW UP</td><td>HERMAN GHULAM CNM</td><td>[facility] 12:30:00 PM ([facility]</td><td>10/31/2017</td><td></td> GHULAM CNM H ealth EST - Neighborhood Center 10/31/2017 Health 01:47:13 PM Center) EST Outpatient<td ID="cppzjrrztEqltBrvtmjvpzsnTN32">COMPLETE Attende r: Douglas 10/30/2017 PE[place]SCO PHYSICAL EXAM</td><td>[facility] 01:00 :00 PM (Health system</td><td>[facility] EST [facility]</td><td>10/30/2017</td><td></td> S SECURITY OFFICER Center [address] [place] [address] 03:01:32 PM Center) EST Outpatient<td Attender: Douglas 09/18/2017 VEE ID="yizfeqppvJgxgPmrpvezjpniLW75">WALKINS</td><td>[facility] 12:30:00 PM ([place] GHULAM CNM</td><td>[facility] GHULAM CNM [facility] Hospital EDT - [facility]</td><td>09/18/2017</td><td></td> [place] [facility] Health 01:53:10 PM Center) EDT Outpatient<td ID="[id number]">1st Attender: [place] 09/03/2017 VEE </td><td>HERMAN GHULAM CNM</td><td>[facility] 01:30:00 PM ([facility]</td><td>09/03/2017</td><td></td> GHULAM CNM H ealt EDT - [facility] 09/03/2017 Health 02:55:00 PM Center) EDT Outpatient<td ID="[id number]"> Attende r: [place] 09/03/2017 VEE SONOGRAM</td><td>RADHA BUCK MD</td><td>[facility] 12:00:00 PM ([facility]</td><td>09/03/2017</td><td></td> HEBER SILVA [facility] EDT - [facility] 09/03/2017 Health 11:59:00 PM Center) EDT Outpatient<td ID="[id number]">*Chart Attender: Douglas 09/02/2017 VEE Update*</td><td>HERMAN GHULAM CNM</td><td>[facility] 01:16:00 PM ([facility]</td><td>09/02/2017</td><td></td> GHULAM CNM [facility] EDT - [facility] Center 09/02/2017 Health 11:59:00 PM Center) EDT Outpatient<td ID="[id number]">NURSE Attender: Douglas 09/02/2017 VEE SCREENING</td><td>HERMAN GHULAM CNM</td><td>[facility] 12:30:00 PM ([facility]</td><td>09/02/2017</td><td></td> GHULAM CNM H [facility]alt EDT - [facility] 09/02/2017 Health 04:12:11 PM Center) EDT Outpatient<td Attender: [place] 09/02/2017 PENASCO ID="[id number]">WALKINS</td><td>HERMAN LOWE [facility] 10:45:00 AM ([place] GHULAM CNM</td><td>[facility] EDT - [facility]</td><td>09/02/2017</td><td></td> Center [facility] Health 04:58:34 PM Center) EDT Immunizations Vaccine Date Status Description Data Source(s) IIV3. This 09/23/2019 completed Influenza 2 09/23/2019 Left Active [facility] is one of 03:27:00 PM Deltoid (Administered) Neighborhood ([facility] Neighborhood replacing [facility] ) which is being retired. IIV3. This 01/10/2018 completed Influenza 1 01/10/2018 Right Active [facility] is one of 11:42:00 AM Deltoid (Administered) Neighborhood ([facility] Neighborhood replacing [facility] 15, [place] ) which is being retired. TB Skin 11/11/2017 completed PPD TB 2 11/11/2017 Left Active Mo unt [place] test is 01:37:00 PM TST Lower (Administered) Nei ghborhood ([facility] vaccine. [facility]) TB Skin 10/31/2017 completed PPD TB 1 10/31/2017 Right Active Mo unt [facility] test is 01:45:00 PM TST Lower (Administered) Nei ghborhood ([facility] vaccine. [facility]) Medications Medication Brand Start Product Dose Route [...] External ne 5% 2018 DOSING ([facility] [employer] 12:00: UNIT [place] al 00 AM Neighbor[facility] Soluti EDT od Health on Center) Prenat 03/13/ UNIT 1 complet VEE 28-0.8MG al 2018 ed ([facility] Oral Tablet 28-0.8 12:00: [employer] on MG 00 AM Neighborho Oral EDT od Health Tablet Center) Prenat [...] Policy type / Policy ID Covered Covered constitution party's Policy Plan Coverage type constitution party ID relationship to Mcconnell Information mcconnell ZE [id number] SP [id number] HEALTH NON [facility] [id number] SP [id number] CARE Ze Care Individual 0 Self 0 [place] Policy [place] Care Individual 0 Self 0 [place] Policy [place] Care Individual 0 Self 0 [place] Policy [place] Care Individual 0 Self 0 [place] Policy ZE W [id number] [place] Care Individual 0 Self 0 [place] Policy [place] Care Individual 0 Self 0 [place] Policy [place] Care Individual 0 Self 0 [place] Policy Ze Care Individual 0 Self 0 [place] Policy [place] Care Individual 0 Self 0 [place] Policy [place] Care Individual 0 Self 0 [place] Policy [place] Care Individual 0 Self 0 [place] Policy [place] Care Individual 0 Self 0 [place] Policy [place] [id number] S [id number] Family Planning MKD & EP 3 & 4 Only Jono Vision [id number] S [id number] MKD Dental [id number] S [id number] Dentaquest MKD Medicaid [id number] S [id number] Regular Clinic Visit Ze Care [id number] S [id number] [place] Medicaid Problems, Conditions, and Diagnoses Code Display Name Description Problem Type Effective Data Sour ce(s) Dates [id number] Possible Varicella Possible Problem 09/02/2017 SUSANNAH AY ([facility] Susceptibility (no Varicella 12:00:00 AM Vern[place] n Prior History) Susceptibility EDT - Neighb orhood (no Prior 06/02/2018 Health Center) History) 12:00:00 AM EDT [id number] Possible Varicella Possible Problem 09/02/2017 DAGOBERTOW AY ([facility] Susceptibility (no Varicella 12:00:00 AM Vern[place] n Prior History) Susceptibility EDT - Neighb orhood (no Prior 06/02/2018 Health Center) History) 12:00:00 AM EDT [id number] Possible Varicella Possible Problem 09/02/2017 GREENW AY ([facility] Susceptibility (no Varicella 12:00:00 AM Vern[place] n Prior History) Susceptibility EDT - Neighb orhood (no Prior 06/02/2018 Health Center) History) 12:00:00 AM EDT [id number] Possible Varicella Possible Problem 09/02/2017 GREENW AY ([facility] Susceptibility (no Varicella 12:00:00 AM Vern[place] n Prior History) Susceptibility EDT - Neighb orhood (no Prior 06/02/2018 Health Center) History) 12:00:00 AM EDT [id number] Possible Varicella Possible Problem 09/02/2017 GREENW AY ([facility] Susceptibility (no Varicella 12:00:00 AM Vern[place] Prior History) Susceptibility EDT - Neighb orhood (no Prior 06/02/2018 Health Center) History) 12:00:00 AM EDT [id number] Possible Varicella Possible Problem 09/02/2017 GREENW AY ([facility] Susceptibility (no Varicella 12:00:00 AM [place] Prior History) Susceptibility EDT - Neighb orhood (no Prior 06/02/2018 Health Center) History) 12:00:00 AM EDT [id number] Possible Varicella Possible Problem 09/02/2017 GREENMarcelo AY ([facility] Susceptibility (no Varicella 12:00:00 AM Vern[place] n Prior History) Susceptibility EDT - Neighb orhood (no Prior 06/02/2018 Health Center) History) 12:00:00 AM EDT [id number] Possible Varicella Possible Problem 09/02/2017 GREENMarcelo AY ([facility] Susceptibility (no Varicella 12:00:00 AM Vern[place] n Prior History) Susceptibility EDT - Neighb orhood (no Prior 06/02/2018 Health Center) History) 12:00:00 AM EDT [id number] Possible Varicella Possible Problem 09/02/2017 DAGOBERTOMarcelo AY ([facility] Susceptibility (no Varicella 12:00:00 AM Vern[place] n Prior History) Susceptibility EDT - Neighb orhood (no Prior 06/02/2018 Health Center) History) 12:00:00 AM EDT [id number] Possible Varicella Possible Problem 09/02/2017 GREENMarcelo AY ([facility] Susceptibility (no Varicella 12:00:00 AM Vern[place] n Prior History) Susceptibility EDT - Neighb orhood (no Prior 06/02/2018 Health Center) History) 12:00:00 AM EDT [id number] Possible Varicella Possible Problem 09/02/2017 GREENMarcelo AY ([facility] Susceptibility (no Varicella 12:00:00 AM Vern[place] n Prior History) Susceptibility EDT - Neighb orhood (no Prior 06/02/2018 Health Center) History) 12:00:00 AM EDT [id number] Possible Varicella Possible Problem 09/02/2017 GREENMarcelo AY ([facility] Susceptibility (no Varicella 12:00:00 AM Vern[place] n Prior History) Susceptibility EDT - Neighb orhood (no Prior 06/02/2018 Health Center) History) 12:00:00 AM EDT [id number] , Problem 07/02/2017 VEE (Moun t function 12:00:00 AM [place] (observable EDT - Neighborhood entity) 06/02/2018 Health Center) 12:00:00 AM EDT [id number] , Problem 07/02/2017 VEE (Moun t function 12:00:00 AM [place] (observable EDT - Neighborhood entity) 06/02/2018 Health [place]) 12:00:00 AM EDT [id number] , Problem 07/02/2017 VEE (Moun t function 12:00:00 AM [place] (observable EDT - Neighborhood entity) 06/02/2018 Health [place]) 12:00:00 AM EDT [id number] , Problem 07/02/2017 VEE (Moun t function 12:00:00 AM [place] (observable EDT - Neighborhood entity) 06/02/2018 [facility]) 12:00:00 AM EDT [id number] , Problem 07/02/2017 VEE (Moun t function 12:00:00 AM [place] (observable EDT - Neighborhood entity) 06/02/2018 [facility]) 12:00:00 AM EDT [id number] , Problem 07/02/2017 VEE (Moun t function 12:00:00 AM [place] (observable EDT - Neighborhood entity) 06/02/2018 [facility]) 12:00:00 AM EDT [id number] , Problem 07/02/2017 VEE (Moun t function 12:00:00 AM [place] (observable EDT - Neighborhood entity) 06/02/2018 [facility]) 12:00:00 AM EDT [id number] , Problem 07/02/2017 VEE (Moun t function 12:00:00 AM [place] (observable EDT - Neighborhood entity) 06/02/2018 [facility]) 12:00:00 AM EDT [id number] , Problem 07/02/2017 VEE (Moun t function 12:00:00 AM [place] (observable EDT - Neighborhood entity) 06/02/2018 [facility]) 12:00:00 AM EDT [id number] , Problem 07/02/2017 VEE (Moun t function 12:00:00 AM [place] (observable EDT - Neighborhood entity) 06/02/2018 [facility]) 12:00:00 AM EDT [id number] , Problem 07/02/2017 VEE (Moun t function 12:00:00 AM [place] (observable EDT - Neighborhood entity) 06/02/2018 [facility]) 12:00:00 AM EDT [id number] , Problem 07/02/2017 VEE (Moun t function 12:00:00 AM [place] (observable EDT - Neighborhood entity) 06/02/2018 Health Center) 12:00:00 AM EDT Z12.39 Encounter for ENCOUNTER FOR OTH Diagnosis 08/19/2019 Caitlin Starrs other screening SCREENING FOR 12:46:00 PM Medic ms Center for malignant MALIGNANT EDT neoplasm of breast NEOPLASM OF BREAST Z32.02 Encounter for Encounter for Diagnosis 01/30/2019 VEE ([facility] test, test, 03:42:26 PM [place] non result negative result negative [facility]) Z12.4 Encounter for Encounter for Diagnosis 01/30/2019 VEE ([facility] screening for screening for 03:42:26 PM [place] malignant neoplasm malignant EST Neighb orhood of cervix neoplasm of [facility] ) cervix Z11.3 Encounter for Encntr screen for Diagnosis 01/30/2019 GEM COLLADO ([facility] screening for infections w sexl 03:42:26 PM [place] non infections with a mode of transmiss [facility] er) sexual mode of transmission Z01.411 Encounter for Encntr for analytical consultant Diagnosis 01/30/2019 JESSICA Morales ([facility] gynecological exam (general) 03:42:26 PM [place] examination (routine) w [facility] (general) abnormal findings [facility]) (routine) with abnormal findings Surgeries/Procedures Procedure Description Date Indications Data Source(s) No prior serious No prior serious 12/30/2019 JESSICA Morales ([facility] illness illness 12:00:00 AM [facility]) Date of last Date of last 12/30/2019 VEE ([facility] menstruation menstruation 12:00:00 AM [place] [facility] 11/08/2019 11/08/2019 [facility]) ORAL HYGIENE ORAL HYGIENE 11/09/2019 VEE ([facility] INSTRUCTION INSTRUCTION 12:00:00 AM [facility]) Periodic Oral Exam - Periodic Oral Exam - 11/09/2019 VEE ([facility] MKD WRAP MKD WRAP 12:00:00 AM [facility]) PERIODIC ORAL EXAM PERIODIC ORAL EXAM 11/09/2019 SHARRI CUMMINGS ([facility] 12:00:00 AM [facility]) INTRAORAL PERIAPICAL INTRAORAL PERIAPICAL 11/09/2019 VEE ([facility] FIRST FLIM FIRST FLIM 12:00:00 AM [facility]) BITEWINGS-FOUR FILMS BITEWINGS-FOUR FILMS 11/09/2019 VEE ([facility] 12:00:00 AM [facility]) INTRAORAL EACH INTRAORAL EACH 11/09/2019 [place] (M ount ADDITIONAL ADDITIONAL 12:00:00 AM [facility]) ADULT PROPHYLAXIS ADULT PROPHYLAXIS 11/09/[address] (Mount 12:00:00 AM [facility]) Forms complete Forms complete 11/04/2019 VEE (M ount 12:00:00 AM [facility]) Sign language or oral Sign language or Oral 11/04/2019 PENASCO ([facility] interpretive Interpretation per 15 12:00:00 AM [facility], per 15 Minutes [facility] er) minutes No prior serious No prior serious 11/04/2019 GREENWA Y ([facility] illness illness 12:00:00 AM [facility]) No prior serious No prior serious 09/25/2019 LUBBOCKWA Y ([facility] illness illness 12:00:00 AM [facility]) Bmi is documented BMI > NORMAL 09/23/2019 PE[place]SCO ([facility] above normal DOCUMENTED W F/U PLAN 12:00:00 AM [facility] parameters and a [facility] er) follow-up plan is documented Sign language or oral Sign language or Oral 09/23/2019 PENASCO ([facility] interpretive Interpretation per 15 12:00:00 AM [facility] services, per 15 Minutes [facility] er) minutes IMMUNIZATION ADMIN, IMMUNIZATION ADMIN, 09/23/2019 G REENWAY ([facility] >18 1 VACCINE >18 1 VACCINE 12:00:00 AM [facility]) INFLUENZA VACCINE >3 INFLUENZA VACCINE >3 09/23/2019 VEE ([facility] YRS YRS 12:00:00 AM [facility]) Patient Left without Patient Left without 08/26/2019 PE[place] ([place] Seen Seen 12:00:00 AM [facility]) No prior serious No prior serious 07/30/2019 GREENWA Y ([facility] illness illness 12:00:00 AM [facility]) Forms complete Forms complete 07/29/2019 VEE (M ount 12:00:00 AM [facility]) VDRL (RPR) VDRL (RPR) 07/29/2019 VEE ([facility] 12:00:00 AM [facility]) HIV 1/2 ANTIGEN & HIV 1/2 ANTIGEN & 07/29/[address] ([place] ANTIBODIES, 4TH ANTIBODIES, 4TH 12:00:00 AM [place] GENERATION W/REFLEXES GENERATION W/REFLEXES [facility]) Sign language or oral Sign language or Oral 07/29/2019 PENASCO ([facility] interpretive Interpretation per 15 12:00:00 AM [facility] services, per 15 Minutes [facility] er) minutes Result: normal Result: normal 07/29/2019 PE[place]SCO (M ount 12:00:00 AM [facility]) comments: comments: 2 07/29/2019 [place] ([facility] 2 NSD.LNSD 1year ago NSD.LNSD 1year ago 12:00:00 AM [facility]) Para 2 Para 2 07/29/2019 PENASCO ([facility] 12:00:00 AM [facility]) LMP: 07/23/2019 LMP: 07/23/2019 07/29/2019 [place] (M ount 12:00:00 AM [facility]) Last pap smear date Last pap smear date 07/29/2019 Alycia FOSS ([facility] 2017 2017 12:00:00 AM [facility]) 3 3 07/29/2019 PE[place]SCO ([facility] 12:00:00 AM [facility]) Contraception: Contraception: Condom 07/29/2019 GRE ENWAY ([facility] Condom 12:00:00 AM [facility]) Aborta 1 Aborta 1 07/29/2019 PENASCO ([facility] 12:00:00 AM [facility]) Denies medical Denies medical 07/29/2019 PE[place] (M ount problem. Denies any problem. Denies any 12:00:00 AM [facility] venereal diseases. venereal diseases. [facility]) Denies Abnormal Pap Denies Abnormal Pap smear or HPV smear or HPV Sign language or oral Sign language or Oral 07/15/2019 PENASCO ([facility] interpretive Interpretation per 15 12:00:00 AM [facility] services, per 15 Minutes [facility] er) minutes VISUAL ACUITY SCREEN VISUAL ACUITY SCREEN 07/15/2019 PE[place]SC[place] ([facility] 12:00:00 AM [facility]) History of Eyes: History of Eyes: 07/15/2019 GREENWA Y ([facility] normal normal 12:00:00 AM [facility]) No prior serious No prior serious 07/15/2019 GREENWA Y ([facility] illness illness 12:00:00 AM [facility]) Bmi documented BMI OUTSIDE NORMAL 03/10/2019 JESSICA Y ([facility] outside normal RANGE - NO F/U PLAN 12:00:00 AM [facility] parameters, no [facility] ) follow-up plan documented, no reason given Forms complete Forms complete 03/10/2019 PE[place] (M ount 12:00:00 AM [facility]) Sign language or oral Sign language or Oral 03/10/2019 PENASCO ([facility] interpretive Interpretation per 15 12:00:00 AM [facility], per 15 Minutes [facility] er) minutes Sign language or oral Sign language or Oral 03/02/2019 PENASCO ([facility] interpretive Interpretation per 15 12:00:00 AM [facility], per 15 Minutes [facility] er) minutes Date of last Date of last 03/02/2019 PENASCO ([facility] menstruation menstruation 02/11/2019 12:00:00 AM [facility] 02/11/2019 [facility]) Bmi is documented BMI > NORMAL 03/02/2019 PENASCO ([facility] above normal DOCUMENTED W F/U PLAN 12:00:00 AM [facility] parameters and a [facility] er) follow-up plan is documented Forms complete Forms complete 03/02/2019 PE[place]O (M ount 12:00:00 AM [facility]) No prior serious No prior serious 03/02/2019 LUBBOCKZULMA Y ([facility] illness illness 12:00:00 AM [facility]) Periodic Oral Exam - Periodic Oral Exam - 02/20/2019 VEE ([facility] MKD WRAP MKD WRAP 12:00:00 AM [facility]) ADULT PROPHYLAXIS ADULT PROPHYLAXIS 02/20/[address] [facility] (Mount 12:00:00 AM [facility]) BITEWINGS-FOUR FILMS BITEWINGS-FOUR FILMS 02/20/2019 VEE ([facility] 12:00:00 AM [facility]) INTRAORAL EACH INTRAORAL EACH 02/20/2019 VEE (M ount ADDITIONAL ADDITIONAL 12:00:00 AM [facility]) INTRAORAL PERIAPICAL INTRAORAL PERIAPICAL 02/20/2019 VEE ([facility] FIRST FLIM FIRST FLIM 12:00:00 AM [facility]) PERIODIC ORAL EXAM PERIODIC ORAL EXAM 02/20/2019 GRE ENWAY ([facility] 12:00:00 AM [facility]) ORAL HYGIENE ORAL HYGIENE 02/20/2019 VEE ([facility] INSTRUCTION INSTRUCTION 12:00:00 AM [facility]) Result: normal Result: normal 10/01/2018 VEE (M ount 12:00:00 AM [facility]) comments: comments: 2 10/01/2018 VEE ([facility] 2 NAD. LNSD April NAD. LNSD April 12:00:00 AM Abhishek wyatt [facility] [address] [place] [address]) Para 2 Para 2 10/01/2018 VEE ([facility] 12:00:00 AM [facility]) Not using Not using 10/01/2018 VEE ([facility] contraception contraception 12:00:00 AM [facility]) Last pap smear date Last pap smear date 10/01/2018 G REENWAY ([facility] 09/03/2017 09/03/2017 12:00:00 AM [facility]) 2 2 10/01/2018 VEE ([facility] 12:00:00 AM [facility]) Aborta 0 Aborta 0 10/01/2018 VEE ([facility] 12:00:00 AM [facility]) Patient does not have Patient does not have 10/01/2018 VEE ([facility] any actve medical any actve medical 12:00:00 AM [facility] n [facility] problem ~Has n0 problem ~Has n0 [facility] Health nter) history of any history of any operstion operstion Sign language or oral Sign language or Oral 09/26/2018 VEE ([facility] interpretive Interpretation per 15 12:00:00 AM [facility] services, per 15 Minutes [facility] er) minutes Bmi is documented BMI > NORMAL 09/26/2018 [place] ([facility] above normal DOCUMENTED W F/U PLAN 12:00:00 AM [facility] follow-up plan is documented No history of surgery No history of surgery 09/26/2018 [place] ([facility] 12:00:00 AM [facility]) Sign language or oral Sign language or Oral 09/24/2018 [place] ([facility] interpretive Interpretation per 15 12:00:00 AM [facility] services, per 15 Minutes EDT [facility] er) minutes Bmi is documented BMI > NORMAL 09/12/2018 [place] ([facility] above normal DOCUMENTED W F/U PLAN 12:00:00 AM [facility] follow-up plan is documented Sign language or oral Sign language or Oral 07/17/2018 PE[place] ([facility] interpretive Interpretation per 15 12:00:00 AM [facility], per 15 Minutes [facility] er) minutes HEPATITIS C ANTIBODY HEPATITIS C ANTIBODY 07/16/2018 [place] ([facility] 12:00:00 AM [facility]) MEASLES RUBEOLA MEASLES RUBEOLA 07/16/2018 [place] ([facility] ANTIBODY ANTIBODY 12:00:00 AM [facility]) MUMPS ANTIBODY MUMPS ANTIBODY 07/16/2018 [place] (M ount 12:00:00 AM [facility]) HEPATITIS B SURFACE HEPATITIS B SURFACE AG 07/16/2018 [place] ([facility] AG 12:00:00 AM [facility]) HEPATITIS B SURFACE HEPATITIS B SURFACE 07/16/2018 G REENWAY ([facility] ANTIBODY (HBsAb) ANTIBODY (HBsAb) 12:00:00 AM [facility]) HEPATITIS B CORE HEPATITIS B CORE 07/16/2018 [facility] ([facility] ANTIBODY (HBcAb); ANTIBODY (HBcAb); 12:00:00 AM [facility] TOTAL [facility]) RUBELLA TITER RUBELLA TITER 07/16/2018 PE[place]O (Nikole nt 12:00:00 AM [facility]) VARICELLA - ZOSTER VARICELLA - ZOSTER 07/16/2018 GRE ENWAY ([facility] 12:00:00 AM [facility]) ADULT PROPHYLAXIS ADULT PROPHYLAXIS 07/15/[address] ([place] 12:00:00 AM [facility]) URINALYSIS URINALYSIS MICROSCOPIC 07/14/[address] [facility] ([place] MICROSCOPIC 12:00:00 AM [facility]) URINE C AND S URINE C AND S 07/14/2018 VEE (Nikole nt 12:00:00 AM [facility]) Sign language or oral Sign language or Oral 07/14/2018 VEE ([facility] interpretive Interpretation per 15 12:00:00 AM [facility], per 15 Minutes [facility] er) minutes Past medical history Past medical history 07/11/2018 VEE ([facility] G2 L2 A0 M0 G2 L2 A0 M0 12:00:00 AM [facility]) QUANTIFERON QUANTIFERON 07/11/2018 VEE ([facility] TUBERCULOSIS TEST, TUBERCULOSIS TEST, 12:00:00 AM [facility] CELL MEDIATED CELL MEDIATED IMMUNITY [facility]) IMMUNITY AG RES AG RES VISUAL ACUITY SCREEN VISUAL ACUITY SCREEN 07/11/2018 VEE ([facility] 12:00:00 AM [facility]) Sign language or oral Sign language or Oral 07/11/2018 VEE ([facility] interpretive Interpretation per 15 12:00:00 AM [facility], per 15 Minutes [facility] er) minutes [id number] 07/11/[address] [facility] ([facility] 12:00:00 AM [facility]) TSH-THYROID TSH-THYROID 07/11/2018 VEE ([facility] STIMULATING STIMULATING 12:00:00 AM [facility]) URINALYSIS URINALYSIS MICROSCOPIC 07/11/2018 [facility] ([facility] MICROSCOPIC 12:00:00 AM [facility]) METABOLIC PANEL METABOLIC PANEL 07/11/2018 EVE ([facility] COMPREHE COMPREHE 12:00:00 AM [facility]) Drug Screen -Optical Drug Screen -Optical 07/11/2018 VEE ([facility] observation - Any observation - Any 12:00:00 AM [facility] n [facility] Number Class Number Class [facility]) LIPID PANEL LIPID PANEL 07/11/2018 VEE ([facility] 12:00:00 AM [facility]) VDRL (RPR) VDRL (RPR) 07/11/2018 VEE ([place] 12:00:00 AM [facility]) HIV 1/2 ANTIGEN & HIV 1/2 ANTIGEN & 07/11/[address] [facility] ([place] ANTIBODIES, 4TH ANTIBODIES, 4TH 12:00:00 AM [facility] ighborhood GENERATION W/REFLEXES GENERATION W/REFLEXES [facility]) CHLAMYDIA / CHLAMYDIA / GONOCOCCUS 07/11/[address] [facility] ([facility] GONOCOCCUS URINE URINE 12:00:00 AM [facility] hborhood [facility]) Periodic Oral Exam - Periodic Oral Exam - 06/19/2018 VEE ([facility] MKD WRAP MKD WRAP 12:00:00 AM [facility]) INTRAORAL COMPLETE INTRAORAL COMPLETE 06/19/2018 GRE ENEMILIE ([facility] SERIES SERIES 12:00:00 AM [facility]) PERIODIC ORAL EXAM PERIODIC ORAL EXAM 06/19/2018 GRE ENWAY ([facility] 12:00:00 AM [facility]) CARE (6 CARE (6 05/30/2018 Alycia FOSS ([place] WEEK VISIT ONLY) WEEK VISIT ONLY) 12:00:00 AM [facility]) VAGINAL DELIVERY VAGINAL DELIVERY 04/12/2018 JESSICA Morales ([facility] (Deliver at 39 weeks (Deliver at 39 weeks 12:00:00 AM [place] of gestation or of gestation or later, [facility]) later, Spantaneous OB Spantaneous OB Deliveries Between Deliveries Between 37-39 WKS Gestation) 37-39 WKS Gestation) BIOPHYSICAL PROFILE BIOPHYSICAL PROFILE 04/10/2018 Alycia FOSS ([place] W/NST W/NST 12:00:00 AM [facility]) LMP: 07/02/2017 LMP: 07/02/2017 03/24/2018 VEE (M ount 12:00:00 AM [facility]) Results ID Date Data Source [id number] 07/29/2019 01:01:00 PM [facility] VEE ([facility]) Name Value Range Interpretation Description Data Source(s ) Supporting Code Document(s ) Chlamydia Negative Chlamydia VEE trachomatis trachomatis, ([place] rRNA [Presence] FRANCISCO [facility]) specimen by Probe and target amplification method Neisseria Negative Neisseria [place] gonorrhoeae gonorrhoeae, ([place] rRNA [Presence] FRANCISCO [facility] in [facility]) specimen by Probe and target amplification method ID Date Data Source [id number] 07/29/2019 12:50:00 PM EDT VEE ([facility]) Name Value Range Interpretation Description Data Source(s ) Supporting Code Document(s ) Gardnerella Negative Gardnerella VEE vaginalis rRNA vaginalis ([place] [Presence] in [facility] Genital [facility]) specimen by DNA probe Eve sp Negative Eve VEE rRNA species ([place] [Presence] in [facility] fluid [facility]) by DNA probe Trichomonas Negative Trichomonas VEE vaginalis rRNA vaginalis ([place] [Presence] in [facility] Genital [facility]) specimen by DNA probe ID Date Data Source [id number] 07/29/2019 12:48:00 PM EDT VEE ([facility]) Name Value Range Interpretation Description Data Source(s ) Supporting Code Document(s ) Microscopic . . VEE ([place] observation [place] [Identifier] [facility]) specimen by Other stain Note: PAPSMR Note: VEE ([facility]) Note: The Pap smear is a screening test designed to aid in the detection ofpremalignant and malignant conditions of the uterine cervix. It is not adiagnostic procedure and should not be used as the sole means of detectingcervical cancer. Both false-positive and false-negative report s do occur. Pathology report final See Note DIAGNOSIS: SUSANNAH HUBER ([place] diagnosis Narrative [facility]) Note: NEGATIVE FOR INTRAEPITHELIAL LESIO N OR MALIGNANCY. Statement of adequacy See Note Specimen adequacy: VEE ([place] [Interpretation] of Cervical N [facility] or vaginal smear or scraping C enter) by Cyto stain Note: Satisfactory for evaluation. Endo cervical and/or squamous metaplasticcells (endocervical component) are present. Philanthropy Officer who read Cyto See Note Performed by: Alycia FOSS ([place] stain of Cervical or [facility]) vaginal smear or scraping Note: Mitch Ivey, Nail Mill Worker ( ASCP) Diagnosis ICD code See Note Clinician provided IOANA OLIVERA ([place] ICD10: [facility]) Note: Z01.419 Cytology report of IGLPAP Test Methodology: GRE ENWAY ([place] Cervical or vaginal smear [facility]) or scraping Cyto stain.thin prep Note: This liquid based ThinPrep(R) pap test was screened with theuse of an image guided system. HPV, high-risk Negative HPV, high-risk VEE ( [facility]) Note: This high-risk HPV test detects th irteen high-risk types(16/18/31/33/35/39/45/51/52/56/58/5 ) without differentiation. ID Date Data Source [id number] 07/29/2019 12:00:00 AM EDT [place] ([facility]) Name Value Range Interpretation Description Data Source(s ) Supporting Code Document(s ) Ferritin 8 ng/mL Below low normal Ferritin, VEE ([facility] [Mass/volum Serum [place] e] in Serum [facility] or [facility]) ID Date Data Source [id number] 07/29/2019 12:00:00 AM EDT VEE ([facility]) Name Value Range Interpretation Description Data Source(s ) Supporting Code Document(s ) Cobalamin 551 Vitamin B12 VEE ([facility] (Vitamin pg/mL [place] B12) [facility] [Mass/volume Health Pyrites) ] in Serum or Plasma Folate 13.8 Folate (Folic VEE ([facility] [Mass/volume ng/mL Acid), Serum [place] ] in Serum [facility] or [facility]) Note: A serum folate concentration of le ss than 3.1 ng/mL isconsidered to represent clinical deficiency. ID Date Data Source [id number] 07/29/2019 12:00:00 AM EDT VEE ([facility]) Name Value Range Interpretation Description Data Source(s ) Supporting Code Document(s ) Iron 41 ug/dL Iron VEE ([facility] [Mass/volu [place] me] in [facility] Serum or Health Pyrites) Plasma Note: Specimen received hemolyzed. Clini sydni correlation indicated. Iron binding 407 ug/dL Iron Bind.Cap.(TIBC) GREENW AY ([place] capacity [place] [Mass/volume] in [facility] Serum or [facility]) Iron binding 366 ug/dL UIBC VEE ([facility] capacity.unsaturated [place] [Mass/volume] in [facility] Serum or Plasma [facility]) Iron saturation 10 % Below low Iron Saturation [place] ([place] [Mass Fraction] in [facility] Serum or Plasma [facility]) ID Date Data Source [id number] 07/22/2019 10:24:00 [facility] Name Value Range Interpretation Description Data Source(s ) Supporting Code Document(s ) Measles virus >300.0 Rubeola Ab, [place] IgG Ab AU/mL IgG ([place] [Units/volume] [facility] in Serum [facility]) Immunoassay Note: Negative <25.0 Equ ivocal 25.0 - 29.9 Positive >29. 9 Presence of antibodies to Rubeola is presumptive evidence of immunity except when acute infection is suspected. ID Date Data Source [id number] 07/22/2019 10:24:00 AM [facility] Name Value Range Interpretation Description Data Source(s ) Supporting Code Document(s ) Mumps virus 97.2 Mumps Abs, [place] IgG Ab AU/mL IgG ([place] [Units/volume] [facility] in Serum [facility]) Immunoassay Note: Negative <9.0 Equiv ocal 9.0 - 10.9 Positive >10.9 A positive result generally indicates past exposure to Mumps virus or previous vaccination. ID Date Data Source [id number] 07/22/2019 10:24:00 AM [facility] Name Value Range Interpretation Description Data Source(s ) Supporting Code Document(s ) Varicella 754 Varicella [place] zoster virus index Zoster IgG ([place] IgG Ab [facility] [Units/volume] [facility]) in Serum by Immunoassay Note: Negative <135 Equivo sydni 135 - 165 Positive >165 A positive result generally indicates exposure to the pathogen or administration of specific immunoglobulins, but it is not indication of active infection or stage of disease. ID Date Data Source [id number] 07/22/2019 10:24:00 AM [facility] ([facility]) Name Value Range Interpretation Description Data Source(s ) Supporting Code Document(s ) Rubella virus 14.20 Rubella [place] IgG Ab index Antibodies, ([place] [Units/volume] IgG [facility] in Serum or [facility]) Plasma by Immunoassay Note: Non-immune <0.90 Equi vocal 0.90 - 0.99 Immune >0.9 9 ID Date Data Source [id number] 07/22/2019 10:24:00 AM EDT VEE ([facility]) Name Value Range Interpretation Description Data Source(s ) Supporting Code Document(s ) Thyrotropin 0.960 TSH VEE ([facility] [Units/volume] uIU/mL [place] in Serum or Neighborhood Plasma by [facility]) Detection limit <= 0.05 mIU/L ID Date Data Source [id number] 07/22/2019 10:24:00 AM EDT VEE ([facility]) Name Value Range Interpretation Description Data Source(s ) Supporting Code Document(s ) Hemoglobin 5.3 % Hemoglobin A1c VEE ([facility] A1c/Hemoglobi [place] n.total in [facility] Blood [facility]) Note: Prediabetes: 5.7 - 6.4 Diabetes: >6.4 Glycemic control for adults with diabetes: <7.0 ID Date Data Source [id number] 07/22/2019 10:24:00 AM EDT VEE ([facility]) Name Value Range Interpretation Description Data Source(s ) Supporting Code Document(s ) Triglyceride 39 Triglycerides VEE [Mass/volume] mg/dL ([place] in Serum or [facility] Plasma Health Pyrites) Cholesterol 149 Cholesterol, VEE [Mass/volume] mg/dL Total ([place] in Serum or [facility] Plasma [facility]) Cholesterol in 59 HDL Cholesterol VEE HDL mg/dL ([place] [Mass/volume] Neighborhood in Serum or Health Center) Plasma Laboratory N/A Comment: [place] comment [Text] ([place] in Report [facility]) Cholesterol in 1.4 LDL/HDL Ratio [place] LDL/Cholestero ratio ([place] l in HDL [Mass Neighborhood Ratio] in Health Center) Serum or Plasma Note: LDL/HDL Ratio Men Women 1/2 Avg.Risk 1.0 1.5 Avg.Risk 3.6 3.2 2X Avg.Risk 6.2 5.0 3X Avg.Risk 8.0 6.1 Cholesterol in VLDL 8 mg/dL VLDL Cholesterol Sydni VEE ([place] [Mass/volume] in Serum or [facility] Plasma by calculation Center) Cholesterol in LDL 82 mg/dL LDL Cholesterol Calc [place]O ([place] [Mass/volume] in Serum or [facility] Plasma by calculation Center) ID Date Data Source [id number] 07/22/2019 10:24:00 AM EDT VEE ([facility]) Name Value Range Interpretation Description Data Sup porting Code Source(s) Document(s ) Calcium 9.4 Calcium VEE [Mass/volume] in mg/dL ([place] Serum or [facility]) Urea nitrogen 11 BUN VEE [Mass/volume] in mg/dL ([place] Serum [facility]) Protein 7.1 Protein, VEE [Mass/volume] in g/dL Total ([place] Serum [facility]) Glucose 75 Glucose VEE [Mass/volume] in mg/dL ([facility]) Alkaline 60 IU/L Alkaline [place] phosphatase Phosphatase ([place] [Enzymatic [facility] activity/volume] [facility] in Serum or Plasma Center) Bilirubin.total 0.2 Bilirubin, VEE [Mass/volume] in mg/dL Total ([facility]) Aspartate 16 IU/L AST (SGOT) VEE aminotransferase ([place] [Enzymatic [facility] activity/volume] [facility] in Serum or Plasma Pyrites) Albumin 4.4 Albumin VEE [Mass/volume] in g/dL ([facility]) Potassium 4.3 Potassium VEE [Moles/volume] in mmol/L ([facility]) Chloride 101 Chloride VEE [Moles/volume] in mmol/L ([facility] Serum [facility]) Sodium 137 Sodium VEE [Moles/volume] in mmol/L ([facility]) Creatinine 0.80 Creatinine VEE [Mass/volume] in mg/dL ([facility]) Carbon dioxide, 23 Carbon VEE total mmol/L Dioxide, ([place] [Moles/volume] in Total [facility] Serum [facility]) Alanine 11 IU/L ALT (SGPT) VEE aminotransferase ([place] [Enzymatic Neighborhood activity/volume] [facility] in Serum or Plasma Pyrites) Urea 14 BUN/Creatinin VEE nitrogen/Creatinin e Ratio ([facility] on e [Mass Ratio] in [facility] Serum [facility]) Albumin/Globulin 1.6 A/G Ratio VEE [Mass Ratio] in ([place] Serum or Plasma [facility]) Globulin 2.7 Globulin, VEE [Mass/volume] in g/dL Total ([place] Serum by [facility]) eGFR If NonAfricn 94 eGFR If VEE Am mL/min/ NonAfricn Am ([address]) eGFR If Africn Am 108 eGFR If VEE mL/min/ Africn Am ([address]) ID Date Data Source [id number] 07/22/2019 10:24:00 AM EDT [place] ([facility]) Name Value Range Interpretation Description Data Source(s ) Supporting Code Document(s ) Calcidiol 28.4 Below low normal Vitamin D, [place] (Mo unt [Mass/volume ng/mL 25-Hydroxy [place] ] in Serum [facility] or [facility]) Note: Vitamin D deficiency has been defi trudy by the [place] of[place] and an Endocrine Society practice guideline as alevel of serum 25-OH vitamin D less than 20 ng/mL (1,2).The Endocrine Society went o n to further define vitamin Dinsufficiency as a level between 21 and 29 ng/mL (2).1. I OM ([place] [employer]). 2010. Dietary reference intakes for calcium and D. [place]: The National Academies Press.2. Levi MF, Sammy BRANCH, Max Arias MCCLENDON, et al. Evaluation, treatment, and prevention of vitamin D deficiency : an Endocrine Society clinical practice guideline. JCEM. 2010; 96(7):1911-30 . ID Date Data Source [id number] 07/22/2019 10:24:00 AM EDT [place] ([facility]) Name Value Range Interpretation Description Data Sup porting Code Source(s) Document(s ) Benzodiazepine Negative Benzodiazepines VEE s [Presence] ng/mL ([place] in Urine [facility]) Opiates Negative Opiates VEE [Presence] in ng/mL ([place] Urine [facility]) Note: Opiate test includes Codeine and M orphine only. Benzoylecgonine Negative ng/mL Cocaine (Metab.) GR EENWAY ([facility] [Presence] in Urine [facility]) Phencyclidine [Presence] Negative ng/mL Phencyclid ine VEE ([place] in Urine [facility]) Barbiturates [Presence] Negative ng/mL Barbiturate VEE ([place] in Urine by Screen [facility]) Cannabinoids [Presence] Negative ng/mL Cannabinoid VEE ([place] in Urine by Screen [facility]) Propoxyphene [Presence] Negative ng/mL Propoxyphen e, Urine VEE ([place] in Urine [facility]) Amphetamines [Presence] Negative ng/mL Amphetamine s, Urine VEE ([place] in Urine by Screen [facility]) Note: Amphetamine test includes Amphetam ine and Methamphetamine. Ethanol [Mass/volume] Negative % Ethanol, Urine GR EENWAY ([place] in [facility]) Methadone [Presence] in Negative ng/mL Methadon e Screen, VEE ([place] Urine by Screen method U[facility]) ID Date Data Source [id number] 07/22/2019 12:00:00 AM EDT VEE ([facility]) Name Value Range Interpretation Description Data Sup porting Code Source(s) Document(s ) QuantiFERON Incubation QuantiFERON VEE Incubation performed. Incubation ([facility]) Service See Note QuantiFERON VEE comment Criteria ([facility]) Note: The QuantiFERON-TB Gold Plus resul t is determined by subtractingthe Nil value from either TB antigen (Ag) tube. The mi togen tubeserves as a control for the test. QuantiFERON TB2 Ag 3.54 IU/mL QuantiFERON TB2 GREE NWAY ([place] Value Ag Value [facility]) QuantiFERON TB1 Ag 3.99 IU/mL QuantiFERON TB1 GREE NWAY ([facility] Value Ag Value [facility]) Gamma interferon 0.10 IU/mL QuantiFERON Nil GREENW AY ([facility] background Value [place] [Units/volume] in Neighborhood Blood by [facility]) Immunoassay QuantiFERON-TB Positive Abnormal QuantiFERON-TB VEE ( [place] Gold Plus (applies to Gold Plus [place] non-numeric [facility]) QuantiFERON >10.00 IU/mL QuantiFERON VEE ([facility] Mitogen Value Mitogen Value [facility]) ID Date Data Source [id number] 09/17/2018 02:22:00 PM EDT VEE ([facility]) Name Value Range Interpretation Description Data Source(s ) Supporting Code Document(s ) Neisseria Negative Neisseria VEE gonorrhoeae gonorrhoeae, ([place] rRNA [Presence] FRANCISCO [facility] in [facility]) specimen by Probe and target amplification method Chlamydia Negative Chlamydia [place] trachomatis trachomatis, ([place] rRNA [Presence] FRANCISCO [facility] in [facility]) specimen by Probe and target amplification method ID Date Data Source [id number] 09/17/2018 02:21:00 PM EDT VEE ([facility]) Name Value Range Interpretation Description Data Source(s ) Supporting Code Document(s ) Gardnerella Negative Gardnerella VEE vaginalis rRNA vaginalis ([place] [Presence] in [facility]) specimen by DNA probe Eve sp Negative Eve [place] rRNA species ([place] [Presence] in [facility]) by DNA probe Trichomonas Negative Trichomonas VEE vaginalis rRNA vaginalis ([place] [Presence] in [facility]) specimen by DNA probe ID Date Data Source [id number] 09/17/2018 02:18:00 PM EDT VEE ([facility]) Name Value Range Interpretation Description Data Source(s ) Supporting Code Document(s ) Microscopic . . VEE ([place] observation [place] [Identifier] [facility]) specimen by Other stain Note: PAPSMR Note: VEE ([facility]) Note: The Pap smear is a screening test designed to aid in the detection ofpremalignant and malignant conditions of the uterine cervix. It is not adiagnostic procedure and should not be used as the sole means of detectingcervical cancer. Both false-positive and false-negative report s do occur. Statement of adequacy See Note Specimen adequacy: VEE ([place] [Interpretation] of Cervical [facility] or vaginal smear or scraping C enter) by Cyto stain Note: Satisfactory for evaluation. Endo cervical and/or squamous metaplasticcells (endocervical component) are present. Philanthropy Officer who read Cyto See Note Performed by: Alycia FOSS ([place] stain of Cervical or [facility]) vaginal smear or scraping Note: Eliceo Be, Nail Mill Worker (ASCP) HPV, high-risk Negative HPV, high-risk VEE ( [facility]) Note: This high-risk HPV test detects th irteen high-risk types(16/18/31/33/35/39/45/51/52/56/58/5 ) without differentiation. Diagnosis ICD code See Note Clinician provided IOANA OLIVERA ([place] ICD10: [facility]) Note: Z01.419 Pathology report final See Note DIAGNOSIS: SUSANNAH AY ([place] diagnosis Narrative [facility]) Note: NEGATIVE FOR INTRAEPITHELIAL LESIO N AND MALIGNANCY. Cytology report of IGLPAP Test Methodology: SHARRI CUMMINGS ([place] Cervical or vaginal smear [facility]) or scraping Cyto stain.thin prep Note: This liquid based ThinPrep(R) pap test was screened with theuse of an image guided system. ID Date Data Source [id number] 09/17/2018 12:00:00 AM EDT VEE ([facility]) Name Value Range Interpretation Description Data Source(s ) Supporting Code Document(s ) hCG,Beta <1 mIU/mL hCG,Beta VEE ([facility] Subunit, Subunit,Qnt,[facility] [place] Qnt,Seru [facility]) Note: Female (Non-) 0 - 5 (Postme nopausal) 0 - 8 Female () Weeks of Gestation 3 6 - 71 4 1 0 - 750 5 217 - 7138 6 158 - 21066 7 6917 -[phone] 8 64053 -[phone] 9 17995 -006159 10 35200 -1 30067 12 28491 -449819 14 65981 - 22407 15 86293 - 43153 16 7463 - 40132 17 8 571 - 55975 18 5119 - 78540Roche ECLIA methodology ID Date Data Source [id number] 07/11/2018 12:00:00 AM EDT VEE ([facility]) Name Value Range Interpretation Description Data Source(s ) Supporting Code Document(s ) Hepatitis B Negative Hep B Core [place] virus core Ab Ab, Tot ([place] [Presence] in [facility] Serum or Health Center) Plasma by Immunoassay ID Date Data Source [id number] 07/11/2018 12:00:00 AM EDT [place] ([facility]) Name Value Range Interpretation Description Data Source(s ) Supporting Code Document(s ) Hepatitis B Negative HBsAg Screen [place] virus surface ([place] Ag [Presence] Neighborhood in Serum or Health Center) Plasma by Immunoassay ID Date Data Source [id number] 07/11/2018 12:00:00 AM EDT VEE ([facility]) Name Value Range Interpretation Description Data Source(s ) Supporting Code Document(s ) QuantiFERON TB Positive Abnormal QuantiFERON [place] Gold (applies to TB Gold ([place] non-numeric [facility] results) [facility]) Annotation See Note Interpretatio [place] comment n: ([place] [Interpretatio [facility] n] [facility]) Note: The QuantiFERON TB Gold (in [...] Ag Value 5.11 IU/mL QuantiFERON TB Ag [place] ([facility]) Gamma interferon 0.15 IU/mL QuantiFERON Nil Value [place] ([facility] [Units/volume] in Blood Center ) by Immunoassay QFT TB Ag minus Nil 4.96 IU/mL QFT TB Ag minus Nil [place] () QuantiFERON Mitogen 7.96 IU/mL QuantiFERON Mitogen [place] () Service comment See Note QuantiFERON Criteria [facility] ([facility]) Note: To be considered positive a specim [...] some indeterminate testvalues. ID Date Data Source [id number] 07/11/2018 12:00:00 [facility] Name Value Range Interpretation Description Data Source(s ) Supporting Code Document(s ) QuantiFERON QRN QuantiFERON VEE ([facility]) Note: Specimen incubated at [place], [place]. ID Date Data Source [id number] 07/11/2018 12:00:00 AM EDT VEE ([facility]) Name Value Range Interpretation Description Data Source(s ) Supporting Code Document(s ) Hepatitis C 0.1 Hep C Virus VEE virus Ab s/co_rat Ab ([place] Signal/Cutoff io Neighborhood in Serum or Health Center) Plasma by Immunoassay Note: Negative: < 0.8 Indeterm inate: 0.8 - 0.9 Positive: > 0.9 The CDC recommends that a positive HCV antibody result be followed up with a HCV Nucleic Acid Amplification test (04642 3). ID Date Data Source [id number] 07/11/2018 12:00:00 AM ED VEE ([facility]) Name Value Range Interpretation Description Data Source(s ) Supporting Code Document(s ) Measles virus >300.0 Rubeola Ab, VEE IgG Ab AU/mL IgG ([place] [Units/volume] Neighborhood in Serum by [facility]) Immunoassay Note: Negative <25.0 Equ ivocal 25.0 - 29.9 Positive >29. 9 Presence of antibodies to Rubeola is presumptive evidence of immunity except when acute infection is suspected. ID Date Data Source [id number] 07/11/2018 12:00:00 AM ED VEE ([facility]) Name Value Range Interpretation Description Data Source(s ) Supporting Code Document(s ) Mumps virus 98.1 Mumps Abs, VEE IgG Ab AU/mL IgG ([place] [Units/volume] Neighborhood in Serum by [facility]) Immunoassay Note: Negative <9.0 Equiv ocal 9.0 - 10.9 Positive >10.9 A positive result generally indicates past exposure to Mumps virus or previous vaccination. ID Date Data Source [id number] 07/11/2018 12:00:00 AM ED VEE ([facility]) Name Value Range Interpretation Description Data Source(s ) Supporting Code Document(s ) Varicella 739 Varicella [place]NASCO zoster virus index Zoster IgG ([place] IgG Ab [facility] [Units/volume] [facility]) in Serum by Immunoassay Note: Negative <135 Equivo sydni 135 - 165 Positive >165 A positive result generally indicates exposure to the pathogen or administration of specific immunoglobulins, but it is not indication of active infection or stage of disease. ID Date Data Source [id number] 07/11/2018 12:00:00 AM [facility] ([facility]) Name Value Range Interpretation Description Data Source(s ) Supporting Code Document(s ) HIV 1+2 Non HIV Screen PE[place]SCO Ab+HIV1 p24 Reactive 4th ([place] Ag [Presence] Generation [facility] in Serum or [facility]) Plasma by Immunoassay ID Date Data Source [id number] 07/11/2018 12:00:00 AM [facility] ([facility]) Name Value Range Interpretation Description Data Source(s ) Supporting Code Document(s ) Hepatitis B Reactive Hep B Surface [place]O virus Ab, Qual ([place] surface Ab [facility] [Presence] [facility]) in Serum Note: Non R eactive: Inconsistent with immunity, less th an 10 mIU/mL Reactive: Consistent with immunity, greater than 9.9 mIU/mLVerified by rep eat analysis ID Date Data Source [id number] 07/11/2018 12:00:00 AM [facility] ([facility]) Name Value Range Interpretation Description Data Source(s ) Supporting Code Document(s ) Rubella virus 10.50 Rubella [place] IgG Ab index Antibodies, ([place] [Units/volume] IgG [facility] in Serum or [facility]) Plasma by Immunoassay Note: Non-immune <0.90 Equi vocal 0.90 - 0.99 Immune >0.9 9 ID Date Data Source [id number] 07/11/2018 12:00:00 AM [facility] ([facility]) Name Value Range Interpretation Description Data Source(s ) Supporting Code Document(s ) Thyrotropin 1.120 TSH [place]SCO ([facility] [Units/volume] uIU/mL [place] in Serum or Neighborhood Plasma by [facility]) Detection limit <= 0.05 mIU/L ID Date Data Source [id number] 07/11/2018 12:00:00 AM EDT VEE ([facility]) Name Value Range Interpretation Description Data Source(s ) Supporting Code Document(s ) Chlamydia Negative Chlamydia VEE trachomatis trachomatis, ([place] rRNA [Presence] FRANCISCO [facility] in [facility] [place]) specimen by Probe and target amplification method Neisseria Negative Neisseria VEE gonorrhoeae gonorrhoeae, ([place] rRNA [Presence] FRANCISCO [facility] in [facility] [place]) specimen by Probe and target amplification method ID Date Data Source [id number] 07/11/2018 12:00:00 AM EDT VEE ([facility]) Name Value Range Interpretation Description Data Source(s ) Supporting Code Document(s ) Cholesterol 147 Cholesterol, VEE [Mass/volume] mg/dL Total ([place] in Serum or [facility] Plasma [facility]) Cholesterol in 60 HDL Cholesterol VEE HDL mg/dL ([place] [Mass/volume] [facility] in Serum or [facility]) Plasma Triglyceride 92 Triglycerides VEE [Mass/volume] mg/dL ([place] in Serum or [facility] Plasma [facility]) Laboratory N/A Comment: VEE comment [Text] ([place] in Report [facility]) Cholesterol in 69 LDL Cholesterol VEE LDL mg/dL Calc ([place] [Mass/volume] Neighborhood in Serum or [facility]) Plasma by calculation Cholesterol in 1.2 LDL/HDL Ratio VEE LDL/Cholestero ratio ([place] l in HDL [Mass Neighborhood Ratio] in [facility]) Serum or Plasma Note: LDL/HDL Ratio Men Women 1/2 Avg.Risk 1.0 1.5 Avg.Risk 3.6 3.2 2X Avg.Risk 6.2 5.0 3X Avg.Risk 8.0 6.1 Cholesterol in VLDL 18 mg/dL VLDL Cholesterol Sydni VEE ([place] [Mass/volume] in Serum or [facility] Plasma by calculation Center) ID Date Data Source [id number] 07/11/2018 12:00:00 AM EDT VEE ([facility]) Name Value Range Interpretation Description Data Sup porting Code Source(s) Document(s ) Glucose 74 Glucose VEE [Mass/volume] in mg/dL ([place] Serum or [facility]) Urea nitrogen 13 BUN VEE [Mass/volume] in mg/dL ([facility] or [facility]) Calcium 9.8 Calcium VEE [Mass/volume] in mg/dL ([facility]) Albumin 4.5 Albumin VEE [Mass/volume] in g/dL ([facility]) Bilirubin.total <0.2 Bilirubin, VEE [Mass/volume] in mg/dL Total ([facility] or [facility]) Protein 7.1 Protein, VEE [Mass/volume] in g/dL Total ([facility] or [facility]) Potassium 4.8 Potassium VEE [Moles/volume] in mmol/L ([facility] or [facility]) Aspartate 22 IU/L AST (SGOT) VEE aminotransferase ([place] [Enzymatic Neighborhood activity/volume] Health in Serum or [facility]) Alkaline 62 IU/L Alkaline VEE phosphatase Phosphatase ([place] [Enzymatic [facility] activity/volume] Health in Serum or [facility]) Chloride 99 Chloride VEE [Moles/volume] in mmol/L ([facility] or [facility]) Sodium 139 Sodium VEE [Moles/volume] in mmol/L ([facility] or [facility]) Creatinine 0.74 Creatinine VEE [Mass/volume] in mg/dL ([facility]) Alanine 24 IU/L ALT (SGPT) VEE aminotransferase ([place] [Enzymatic Neighborhood activity/volume] Health in Serum or [facility]) Urea 18 BUN/Creatinin VEE nitrogen/Creatinin e Ratio ([facility] on e [Mass Ratio] in [facility] or [facility]) Carbon dioxide, 21 Carbon VEE total mmol/L Dioxide, ([place] [Moles/volume] in Total [facility] Serum or [facility]) eGFR If Africn Am 120 eGFR If VEE mL/min/ Africn Am ([place] 1.73 [facility]) Globulin 2.6 Globulin, VEE [Mass/volume] in g/dL Total ([facility] by [facility]) Albumin/Globulin 1.7 A/G Ratio VEE [Mass Ratio] in ([facility] or [facility]) eGFR If NonAfricn 104 eGFR If VEE Am mL/min/ NonAfricn Am ([place] 1.73 [facility]) ID Date Data Source [id number] 07/11/2018 12:00:00 AM EDT VEE ([facility]) Name Value Range Interpretation Description Data Sup porting Code Source(s) Document(s ) Benzodiazepine Negative Benzodiazepines VEE s [Presence] ng/mL ([place] in Urine [facility]) Benzoylecgonin Negative Cocaine (Metab.) VEE e [Presence] ng/mL ([place] in Urine [facility]) Opiates Negative Opiates VEE [Presence] in ng/mL ([place] Urine [facility]) Note: Opiate test includes Codeine and M orphine only. Phencyclidine Negative ng/mL Phencyclidine GREENWA Y ([place] [Presence] in Urine [facility]) Barbiturates [Presence] Negative ng/mL Barbiturate VEE ([place] in Urine by Screen [facility]) Cannabinoids [Presence] Negative ng/mL Cannabinoid VEE ([place] in Urine by Screen [facility]) Ethanol [Mass/volume] Negative % Ethanol U, Luis G REENWAY ([place] in Urine [facility]) Amphetamines [Presence] Negative ng/mL Amphetamine s, Urine VEE ([place] in Urine by Screen [facility]) Note: Amphetamine test includes Amphetam ine and Methamphetamine. Propoxyphene Negative ng/mL Propoxyphene, Urine GR EENWAY ([place] [Presence] in Urine [facility]) Methadone [Presence] Negative ng/mL Methadone Scre en, VEE ([place] in Urine by Screen Urine [facility]) ID Date Data Source [id number] 03/13/2018 03:01:00 PM EDT VEE ([facility]) Name Value Range Interpretation Description Data Source(s ) Supporting Code Document(s ) Streptococcus. Negative Strep Gp B VEE beta-hemolytic Culture ([place] [Presence] in [facility]) specimen by Organism specific culture Note: Centers for Disease Control and Pr evention (CDC) and [place] [employer]etric[employer] and Gynec[employer] (ACOG) g uidelines [...] clindamycin is noted. ID Date Data Source [id number] 03/13/2018 02:59:00 PM EDT PE[place]SCO ([facility] nt [facility]) Name Value Range Interpretation Description Data Source(s ) Supporting Code Document(s ) Neisseria Negative Neisseria VEE gonorrhoeae gonorrhoeae, ([place] rRNA [Presence] FRANCISCO [facility] in [facility] [place]) specimen by Probe and target amplification method Chlamydia Negative Chlamydia [place] trachomatis trachomatis, ([place] rRNA [Presence] FRANCISCO [facility] in [facility] [place]) specimen by Probe and target amplification method Procedure Social History Code Duration Value Status Description Data Source(s ) Smoking 07/15/2019 Never smoked completed Never smoked VEE ( [facility] 03:06:22 PM tobacco (finding) tobacco (finding) [facility]) Smoking 03/10/2019 smoking status completed VEE ( [facility] 12:48:36 PM [facility]) Smoking 03/02/2019 Never smoked completed Never smoked VEE ( [facility] 04:54:19 PM tobacco (finding) tobacco (finding) [facility]) Assertion Tobacco user completed Tobacco user VEE ( [facility] (finding) (finding) [facility]) Assertion Finding of completed Finding of VEE (Moun t functional functional [place] performance and performance and Neig hborhood activity activity [facility]) (finding) (finding) Assertion social history completed VEE ( [facility]) Assertion sexual history completed VEE ( [facility]) Assertion Oral hygiene completed Oral hygiene VEE ( [facility] finding (finding) finding (finding) [facility]) Assertion Finding relating completed Finding relating GR EENWAY ([facility] to drug misuse to drug misuse [place] behavior behavior [facility] (finding) (finding) [facility]) Assertion Physical handicap completed Physical handicap VEE ([facility] (finding) (finding) [facility]) Assertion Finding of life completed Finding of life GREE NWAY ([facility] event (finding) event (finding) [employer] [facility]) Assertion Caffeine user completed Caffeine user VEE ([facility] (finding) (finding) [facility]) Assertion Current drinker completed Current drinker GREE NWAY ([facility] of alcohol of alcohol [place] (finding) (finding) [facility]) Assertion Finding of completed Finding of VEE (M[place] t activity of daily activity of daily [place] living (finding) [facility] (finding) [facility]) Assertion Exercise history completed Exercise history GR EENWAY ([facility] finding (finding) finding (finding) [facility]) Assertion Sexually active completed Sexually active GREE NWAY ([facility] (finding) (finding) [facility]) Assertion Social and completed Social and VEE (M[place] t personal history personal history Ve rnon finding (finding) finding (finding) [facility]) Smoking Unknown if ever completed Unknown if ever Caitlin Brito smoked smoked [facility] Assertion Sexually active completed Sexually active GREE NWAY ([facility] (finding) (finding) [facility]) Assertion Social and completed Social and VEE ([place] t personal history personal history Ve rnon finding (finding) finding (finding) [facility]) Assertion Current drinker completed Current drinker GREE NWAY ([facility] of alcohol of alcohol [place] (finding) (finding) [facility]) Assertion Finding of completed Finding of VEE (M[place] t activity of daily activity of daily [place] living (finding) living (finding) [facility]) Assertion Exercise history completed Exercise history GR EENWAY ([facility] finding (finding) [facility] (finding) [facility]) Vital Signs ID Date Data Source UNK Name Value Range Interpretation Code Description Data Source(s) PhenX - pain, 0 0 VEE (M ount [place] abdominal - type [facility]) protocol pt is here due to having pain in the abd omen since the beginning of the year and she is also concerned about not receiving he r menstrual since 11/08/19 Body surface area Derived from 1.49 m2 1.49 m2 VEE ([facility]) pt is here due to having pain in the abd omen since the beginning of the year and she is also concerned about not receiving he r menstrual since 11/08/19 Body mass index (BMI) 24.6 kg/m2 24.6 kg/m2 GRE ENWAY ([place] [[facility]] [facility]) pt is here due to having pain in the abd omen since the beginning of the year and she is also concerned about not receiving he r menstrual since 11/08/19 Body weight 122 [lb_av] 122 [lb_av] VEE ([facility]) pt is here due to having pain in the abd omen since the beginning of the year and she is also concerned about not receiving he r menstrual since 11/08/19 Body height 59 [in_us] 59 [in_us] VEE ([facility]) pt is here due to having pain in the abd omen since the beginning of the year and she is also concerned about not receiving he r menstrual since 11/08/19 Body temperature 96.8 [degF] 96.8 [degF] [facility] ([facility]) pt is here due to having pain in the abd omen since the beginning of the year and she is also concerned about not receiving he r menstrual since 11/08/19 Respiratory rate 18 /min 18 /min PENASCO ([facility]) pt is here due to having pain in the abd omen since the beginning of the year and she is also concerned about not receiving he r menstrual since 11/08/19 Heart rate 94 /min 94 /min VEE ([facility]) pt is here due to having pain in the abd omen since the beginning of the year and she is also concerned about not receiving he r menstrual since 11/08/19 Diastolic blood pressure 69 mm[Hg] 69 mm[Hg] VEE ([facility]) pt is here due to having pain in the abd omen since the beginning of the year and she is also concerned about not receiving he r menstrual since 11/08/19 Systolic blood pressure 106 mm[Hg] 106 mm[Hg] G REENWAY ([facility]) pt is here due to having pain in the abd omen since the beginning of the year and she is also concerned about not receiving he r menstrual since 11/08/19 PhenX - pain, abdominal - type and 0 0 VEE ([facility]) pt is here for paperwork to be filled ou t for employment Body surface area Derived from 1.48 m2 1.48 m2 VEE ([facility]) pt is here for paperwork to be filled ou t for employment Body mass index (BMI) 24.2 kg/m2 24.2 kg/m2 GRE ENWAY ([place] [facility]] [facility] pt is here for paperwork to be filled ou t for employment Body weight 119.8 [lb_av] 119.8 [lb_av] GREENWA Y ([facility]) pt is here for paperwork to be filled ou t for employment Body height 59 [in_us] 59 [in_us] VEE ([facility]) pt is here for paperwork to be filled ou t for employment Body temperature 97.9 [degF] 97.9 [degF] [facility] AY ([facility]) pt is here for paperwork to be filled ou t for employment Respiratory rate 18 /min 18 /min VEE ([facility]) pt is here for paperwork to be filled ou t for employment Heart rate 81 /min 81 /min VEE ([facility]) pt is here for paperwork to be filled ou t for employment Diastolic blood pressure 62 mm[Hg] 62 mm[Hg] VEE ([facility]) pt is here for paperwork to be filled ou t for employment Systolic blood pressure 94 mm[Hg] 94 mm[Hg] G REENWAY ([facility]) pt is here for paperwork to be filled ou t for employment PhenX - pain, abdominal - type and 0 0 VEE ([facility]) Pt is here for flu shot Body surface area Derived from 1.51 m2 1.51 m2 VEE ([facility]) Pt is here for flu shot Body mass index (BMI) 25.2 kg/m2 25.2 kg/m2 GRE ENWAY ([place] [[facility]] [facility]) Pt is here for flu shot Body weight 125 [lb_av] 125 [lb_av] VEE ([facility]) Pt is here for flu shot Body height 59 [in_us] 59 [in_us] VEE ([facility]) Pt is here for flu shot Body temperature 98 [degF] 98 [degF] VEE ([facility]) Pt is here for flu shot Heart rate 69 /min 69 /min VEE ([facility]) Pt is here for flu shot Diastolic blood pressure 60 mm[Hg] 60 mm[Hg] VEE ([facility]) Pt is here for flu shot Systolic blood pressure 95 mm[Hg] 95 mm[Hg] G REENWAY ([facility]) Pt is here for flu shot PhenX - pain, abdominal - type and 0 0 VEE ([facility]) Pt is here for test results and mammogra m results Body surface area Derived from 1.49 m2 1.49 m2 VEE ([facility]) Pt is here for test results and mammogra m results Body mass index (BMI) 24.4 kg/m2 24.4 kg/m2 [facility] ([place] [[facility]] [facility]) Pt is here for test results and mammogra m results Body weight 121 [lb_av] 121 [lb_av] VEE ([facility]) Pt is here for test results and mammogra m results Body height 59 [in_us] 59 [in_us] VEE ([facility]) Pt is here for test results and mammogra m results Body temperature 97.6 [degF] 97.6 [degF] [facility] ([facility]) Pt is here for test results and mammogra m results Heart rate 72 /min 72 /min VEE ([facility]) Pt is here for test results and mammogra m results Diastolic blood pressure 69 mm[Hg] 69 mm[Hg] VEE ([facility]) Pt is here for test results and mammogra m results Systolic blood pressure 111 mm[Hg] 111 mm[Hg] G REENWAY ([facility]) Pt is here for test results and mammogra m results PhenX - pain, abdominal - type and 0 0 VEE ([facility]) Pt presents today for paperwork Body surface area Derived from 1.48 m2 1.48 m2 VEE ([facility]) Pt presents today for paperwork Body mass index (BMI) 24.0 kg/m2 24.0 kg/m2 GRE ENWAY ([place] [[facility]] [facility]) Pt presents today for paperwork Body weight 119 [lb_av] 119 [lb_av] VEE ([facility]) Pt presents today for paperwork Body height 59 [in_us] 59 [in_us] VEE ([facility]) Pt presents today for paperwork Body temperature 97.4 [degF] 97.4 [degF] GREEN AY ([facility]) Pt presents today for paperwork Heart rate 62 /min 62 /min VEE ([facility]) Pt presents today for paperwork Diastolic blood pressure 65 mm[Hg] 65 mm[Hg] VEE ([facility]) Pt presents today for paperwork Systolic blood pressure 102 mm[Hg] 102 mm[Hg] [facility] Pt presents today for paperwork PhenX - pain, abdominal - type and 0 0 VEE ([facility]) 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 07-23-19 Body surface area Derived from 1.46 m2 1.46 m2 VEE ([facility]) 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 ANNUALLMP 07-23-19 Body mass index (BMI) 23.4 kg/m2 23.4 kg/m2 GRE EN[place]AY ([place] [[facility]] [facility]) 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 ANNUALLMP 07-23-19 Body weight 116 [lb_av] 116 [lb_av] VEE ([facility]) 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 ANNUALLMP 07-23-19 Body height 59 [in_us] 59 [in_us] VEE ([facility]) 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 07-23-19 Body temperature 97.4 [degF] 97.4 [degF] [facility] ([facility]) 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 07-23-19 Heart rate 78 /min 78 /min PENASCO ([facility]) 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 07-23-19 Diastolic blood pressure 59 mm[Hg] 59 mm[Hg] PENASCO ([facility]) 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 07-23-19 Systolic blood pressure 95 mm[Hg] 95 mm[Hg] [facility] ([facility]) 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 07-23-19 PhenX - pain, abdominal - type and 0 0 PE[place]SCO ([facility]) Pt is here for regular check and filler up form. Body surface area Derived from 1.47 m2 1.47 m2 PENASCO ([facility]) Pt is here for regular check and filler up form. Body mass index (BMI) 23.7 kg/m2 23.7 kg/m2 GRE ENWAY ([place] [Ratio] [facility]) Pt is here for regular check and filler up form. Body weight 117.4 [lb_av] 117.4 [lb_av] [facility] Y ([facility]) Pt is here for regular check and filler up form. Body height 59 [in_us] 59 [in_us] PENASCO ([facility]) Pt is here for regular check and filler up form. Body temperature 98 [degF] 98 [degF] PENASCO ([facility]) Pt is here for regular check and filler up form. Heart rate 80 /min 80 /min PENASCO ([facility]) Pt is here for regular check and filler up form. Diastolic blood pressure 66 mm[Hg] 66 mm[Hg] PENASCO ([facility]) Pt is here for regular check and filler up form. Systolic blood pressure 103 mm[Hg] 103 mm[Hg] [facility] ([facility]) Pt is here for regular check and filler up form. Body temperature 98.1 [degF] 98.1 [degF] [facility] A[facility] ([facility]) Pt. presenting for pre-employment form c ompletion. Heart rate 67 /min 67 /min PE[place]SCO ([facility]) Pt. presenting for pre-employment form c ompletion. Diastolic blood pressure 61 mm[Hg] 61 mm[Hg] VEE ([facility]) Pt. presenting for pre-employment form c ompletion. Systolic blood pressure 92 mm[Hg] 92 mm[Hg] G REENWAY ([facility]) Pt. presenting for pre-employment form c ompletion. PhenX - pain, abdominal - type and 0 0 VEE ([facility]) Pt. presenting for pre-employment form c ompletion. Body surface area Derived from 1.53 m2 1.53 m2 PENASCO ([facility]) Pt. presenting for pre-employment form c ompletion. Body mass index (BMI) 26.1 kg/m2 26.1 kg/m2 GRE ENWAY ([place] [[facility]] [facility] Pt. presenting for pre-employment form c ompletion. Body weight 129 [lb_av] 129 [lb_av] VEE ([facility]) Pt. presenting for pre-employment form c ompletion. Body height 59 [in_us] 59 [in_us] PENASCO ([facility]) Pt. presenting for pre-employment form c ompletion. Inhaled oxygen concentration 21 % 21 % PENASCO ([facility]) pt states she's here for job form to be filled out Inhaled oxygen flow rate 0 L/min 0 L/min PENASCO ([facility]) pt states she's here for job form to be filled out Oxygen saturation in Arterial blood 98 % 98 % PENASCO ([facility] by Pulse oximetry [facility]) pt states she's here for job form to be filled out PhenX - pain, abdominal - type and 0 0 PENASCO ([facility]) pt states she's here for job form to be filled out Body surface area Derived from 1.52 m2 1.52 m2 PENASCO ([facility]) pt states she's here for job form to be filled out Body mass index (BMI) 25.4 kg/m2 25.4 kg/m2 GRE ENWAY ([place] [[facility]] [facility]) pt states she's here for job form to be filled out Body weight 126 [lb_av] 126 [lb_av] EVE ([facility]) pt states she's here for job form to be filled out Body height 59 [in_us] 59 [in_us] VEE ([facility]) pt states she's here for job form to be filled out Body temperature 97.9 [degF] 97.9 [degF] GREENW AY ([facility]) pt states she's here for job form to be filled out Heart rate rhythm 1 1 Y ([facility]) pt states she's here for job form to be filled out Heart rate 77 /min 77 /min VEE ([facility]) pt states she's here for job form to be filled out Diastolic blood pressure 68 mm[Hg] 68 mm[Hg] VEE ([facility]) pt states she's here for job form to be filled out Systolic blood pressure 107 mm[Hg] 107 mm[Hg] G REENWAY ([facility]) pt states she's here for job form to be filled out Body mass index (BMI) 26.5 kg/m2 26.5 kg/m2 [facility] ([place] [[facility]] [facility]) PT here for form fill out Body weight 131 [lb_av] 131 [lb_av] VEE ([facility]) PT here for form fill out Body height 59 [in_us] 59 [in_us] VEE ([facility]) PT here for form fill out Body temperature 98.4 [degF] 98.4 [degF] GREENW AY ([facility]) PT here for form fill out Heart rate 73 /min 73 /min VEE ([facility]) PT here for form fill out Diastolic blood pressure 62 mm[Hg] 62 mm[Hg] VEE ([facility]) PT here for form fill out Systolic blood pressure 102 mm[Hg] 102 mm[Hg] G REENWAY ([facility]) PT here for form fill out PhenX - pain, abdominal - type and 0 0 VEE ([facility]) PT here for form fill out Body surface area Derived from 1.54 m2 1.54 m2 VEE ([facility]) PT here for form fill out Body surface area Derived from 1.53 m2 1.53 m2 VEE ([facility]) patient present for lab results, lmp 06/18 Body mass index (BMI) 26.1 kg/m2 26.1 kg/m2 GRE ENWAY ([place] [[facility]] [facility]) patient present for lab results, lmp 06/18 Body weight 129 [lb_av] 129 [lb_av] VEE ([facility]) patient present for lab results, [facility] 06/18 Body height 59 [in_us] 59 [in_us] VEE ([facility]) patient present for lab results, lmp 06/18 Body temperature 97.4 [degF] 97.4 [degF] [facility] ([facility]) patient present for lab results, [facility] 06/18 Respiratory rate 18 /min 18 /min PE[place]SCO ([facility]) patient present for lab results, lmp 06/18 Heart rate 86 /min 86 /min PENASCO ([facility]) patient present for lab results, [facility] 06/18 Diastolic blood pressure 75 mm[Hg] 75 mm[Hg] VEE ([facility]) patient present for lab results, lmp 06/18 Systolic blood pressure 122 mm[Hg] 122 mm[Hg] 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, patient states her menses is irregualar, lmp 08/08/18 Body temperature 97.2 [degF] 97.2 [degF] GREENW AY ([facility]) 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, patient states her menses is irregualar, lmp 08/08/18 Respiratory rate 18 /min 18 /min VEE ([facility]) 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, patient states her menses is irregualar, lmp 08/08/18 Heart rate 87 /min 87 /min VEE ([facility]) 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, patient states her menses is irregualar, [facility] 08/08/18 Diastolic blood pressure 77 mm[Hg] 77 mm[Hg] VEE ([facility]) 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, patient states her menses is irregualar, [facility] 08/08/18 Systolic blood pressure 118 mm[Hg] 118 mm[Hg] G REENWAY ([facility]) 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, patient states her menses is irregualar, lmp 08/08/18 PhenX - pain, abdominal - type and 0 0 VEE ([facility]) 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, patient states her menses is irregualar, lmp 08/08/18 Body surface area Derived from 1.69 m2 1.69 m2 VEE ([facility]) 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, patient states her menses is irregualar, [facility] 08/08/18 Body height 59 [in_us] 59 [in_us] VEE ([facility]) Body mass index (BMI) 25.9 kg/m2 25.9 kg/m2 GRE ENWAY ([place] [[facility]] [facility]) pt here for missed period Body weight 128 [lb_av] 128 [lb_av] VEE ([facility]) pt here for missed period Body height 59 [in_us] 59 [in_us] VEE ([facility]) pt here for missed period Body temperature 98.8 [degF] 98.8 [degF] GREENW AY ([facility]) pt here for missed period Heart rate 84 /min 84 /min PENASCO ([facility]) pt here for missed period Diastolic blood pressure 59 mm[Hg] 59 mm[Hg] VEE ([facility]) pt here for missed period Systolic blood pressure 90 mm[Hg] 90 mm[Hg] [facility] pt here for missed period PhenX - pain, abdominal - type and 0 0 VEE ([facility]) pt here for missed period Body surface area Derived from 1.53 m2 1.53 m2 PENASCO ([facility]) pt here for missed period PhenX - pain, abdominal - type and 0 0 VEE ([facility]) PT here for medical results. Body surface area Derived from 1.62 m2 1.62 m2 PENASCO ([facility]) PT here for medical results. Body mass index (BMI) 29.9 kg/m2 29.9 kg/m2 GRE ENWAY ([place] [[facility]] [facility]) PT here for medical results. Body weight 148 [lb_av] 148 [lb_av] VEE ([facility]) PT here for medical results. Body height 59 [in_us] 59 [in_us] PENASCO ([facility]) PT here for medical results. Body temperature 98 [degF] 98 [degF] PENASCO ([facility]) PT here for medical results. Heart rate 71 /min 71 /min PENASCO ([facility]) PT here for medical results. Diastolic blood pressure 65 mm[Hg] 65 mm[Hg] PENASCO ([facility]) PT here for medical results. Systolic blood pressure 99 mm[Hg] 99 mm[Hg] G [facility] ([facility]) PT here for medical results. PhenX - pain, abdominal - type and 0 0 VEE ([facility]) PT HERE FOR PAPER FILL OUT Body surface area Derived from 1.51 m2 1.51 m2 PENASCO ([facility]) PT HERE FOR PAPER FILL OUT Body mass index (BMI) 25.2 kg/m2 25.2 kg/m2 GRE ENWAY ([place] [[facility]] [facility]) PT HERE FOR PAPER FILL OUT Body weight 125 [lb_av] 125 [lb_av] VEE ([facility]) PT HERE FOR PAPER FILL OUT Body height 59 [in_us] 59 [in_us] VEE ([facility]) PT HERE FOR PAPER FILL OUT Body temperature 97.3 [degF] 97.3 [degF] GREENW AY ([facility]) PT HERE FOR PAPER FILL OUT Heart rate 60 /min 60 /min VEE ([facility]) PT HERE FOR PAPER FILL OUT Diastolic blood pressure 65 mm[Hg] 65 mm[Hg] VEE ([facility]) PT HERE FOR PAPER FILL OUT Systolic blood pressure 101 mm[Hg] 101 mm[Hg] [facility] PT HERE FOR PAPER FILL OUT PhenX - pain, abdominal - type and 0 0 VEE ([facility]) Pt here today for CPE Body surface area Derived from 1.52 m2 1.52 m2 VEE ([facility]) Pt here today for CPE Body mass index (BMI) 25.7 kg/m2 25.7 kg/m2 GRE ENWAY ([place] [[facility]] [facility]) Pt here today for CPE Body weight 127 [lb_av] 127 [lb_av] VEE ([facility]) Pt here today for CPE Body height 59 [in_us] 59 [in_us] VEE ([facility]) Pt here today for CPE Body temperature 97.8 [degF] 97.8 [degF] GREENW AY ([facility]) Pt here today for CPE Heart rate 78 /min 78 /min VEE ([facility]) Pt here today for CPE Diastolic blood pressure 65 mm[Hg] 65 mm[Hg] VEE ([facility]) Pt here today for CPE Systolic blood pressure 103 mm[Hg] 103 mm[Hg] G REENWAY ([facility]) Pt here today for CPE PhenX - pain, abdominal - type and 0 0 VEE ([facility]) patient present for post- visit, n o complaints Body surface area Derived from 1.49 m2 1.49 m2 VEE ([facility]) patient present for post- visit, n o complaints Body mass index (BMI) 24.4 kg/m2 24.4 kg/m2 GRE ENWAY ([place] [[facility]] [facility]) patient present for post- visit, n o complaints Body weight 121 [lb_av] 121 [lb_av] VEE ([facility]) patient present for post- visit, n o complaints Body height 59 [in_us] 59 [in_us] VEE ([facility]) patient present for post- visit, n o complaints Body temperature 97 [degF] 97 [degF] VEE ([facility]) patient present for post- visit, n o complaints Heart rate 68 /min 68 /min VEE ([facility]) patient present for post- visit, n o complaints Diastolic blood pressure 76 mm[Hg] 76 mm[Hg] VEE ([facility]) patient present for post- visit, n o complaints Systolic blood pressure 113 mm[Hg] 113 mm[Hg] G REENWAY ([facility]) patient present for post- visit, n o complaints PhenX - pain, abdominal - type and 0 0 VEE ([facility]) patient present for vaginal check Body surface area Derived from 1.58 m2 1.58 m2 VEE ([facility]) patient present for vaginal check Body mass index (BMI) 28.3 kg/m2 28.3 kg/m2 GRE ENWAY ([place] [[facility]] [facility]) patient present for vaginal check Body weight 140 [lb_av] 140 [lb_av] VEE ([facility]) patient present for vaginal check Body height 59 [in_us] 59 [in_us] VEE ([facility]) patient present for vaginal check Body temperature 98.1 [degF] 98.1 [degF] GREENW AY ([facility]) patient present for vaginal check Respiratory rate 18 /min 18 /min VEE ([facility]) patient present for vaginal check Heart rate 79 /min 79 /min VEE ([facility]) patient present for vaginal check Diastolic blood pressure 75 mm[Hg] 75 mm[Hg] VEE ([facility]) patient present for vaginal check Systolic blood pressure 110 mm[Hg] 110 mm[Hg] [facility] patient present for vaginal check Body height 59 [in_us] 59 [in_us] VEE ([facility]) vaginal repair evaluaion s/p vaginal del pauly Respiratory rate 18 /min 18 /min VEE ([facility]) vaginal repair evaluaion s/p vaginal del pauly Heart rate 96 /min 96 /min VEE ([facility]) vaginal repair evaluaion s/p vaginal del pauly Diastolic blood pressure 67 mm[Hg] 67 mm[Hg] VEE ([facility]) vaginal repair evaluaion s/p vaginal del pauly Systolic blood pressure 102 mm[Hg] 102 mm[Hg] G [facility] ([facility]) vaginal repair evaluaion s/p vaginal del pauly PhenX - pain, abdominal - type and 0 0 VEE ([facility]) patient present for f/u and NST monitoring Body surface area Derived from 1.56 m2 1.56 m2 PENASCO ([facility]) patient present for f/u and NST monitoring Body mass index (BMI) 27.1 kg/m2 27.1 kg/m2 GRE ENWAY ([place] [[facility]] [facility]) patient present for f/u and NST monitoring Body weight 134 [lb_av] 134 [lb_av] VEE ([facility]) patient present for f/u and NST monitoring Body height 59 [in_us] 59 [in_us] VEE ([facility]) patient present for f/u and NST monitoring Body temperature 97.2 [degF] 97.2 [degF] GREENW AY ([facility]) patient present for f/u and NST monitoring Respiratory rate 18 /min 18 /min PENASCO ([facility]) patient present for f/u and NST monitoring Heart rate 107 /min 107 /min PENASCO ([facility]) patient present for f/u and NST monitoring Diastolic blood pressure 72 mm[Hg] 72 mm[Hg] PENASCO ([facility]) patient present for f/u and NST monitoring Systolic blood pressure 105 mm[Hg] 105 mm[Hg] [facility] ([facility]) patient present for f/u and NST monitoring PhenX - pain, abdominal - type and 0 0 VEE ([facility]) PATIENT HERE FOR FOLLOW UPLMP: 07/02/17 Body surface area Derived from 1.56 m2 1.56 m2 PENASCO ([facility]) PATIENT HERE FOR FOLLOW UPLMP: 07/02/17 Body mass index (BMI) 27.1 kg/m2 27.1 kg/m2 GRE ENWAY ([place] [Ratio] [facility]) PATIENT HERE FOR FOLLOW UPLMP: 07/02/17 Body weight 134 [lb_av] 134 [lb_av] PENASCO ([facility]) PATIENT HERE FOR FOLLOW UPLMP: 07/02/17 Body height 59 [in_us] 59 [in_us] PENASCO ([facility]) PATIENT HERE FOR FOLLOW UPLMP: 07/02/17 Body temperature 94.1 [degF] 94.1 [degF] LUBBOCKMarcelo AY ([facility]) PATIENT HERE FOR FOLLOW UPLMP: 07/02/17 Heart rate 102 /min 102 /min PENASCO ([facility]) PATIENT HERE FOR FOLLOW UPLMP: 07/02/17 Diastolic blood pressure 66 mm[Hg] 66 mm[Hg] PENASCO ([facility]) PATIENT HERE FOR FOLLOW UPLMP: 07/02/17 Systolic blood pressure 96 mm[Hg] 96 mm[Hg] G [facility] ([facility]) PATIENT HERE FOR FOLLOW UPLMP: 07/02/17 PhenX - pain, abdominal - type and 0 0 VEE ([facility]) PATIENT HERE FOR FOLLOW UP Body surface area Derived from 1.54 m2 1.54 m2 VEE ([facility]) PATIENT HERE FOR FOLLOW UP Body mass index (BMI) 26.3 kg/m2 26.3 kg/m2 GRE ENWAY ([place] [facility] PATIENT HERE FOR FOLLOW UP Body weight 130 [lb_av] 130 [lb_av] VEE ([facility]) PATIENT HERE FOR FOLLOW UP Body height 59 [in_us] 59 [in_us] VEE ([facility]) PATIENT HERE FOR FOLLOW UP Body temperature 98.6 [degF] 98.6 [degF] [facility] ([facility]) PATIENT HERE FOR FOLLOW UP Heart rate 97 /min 97 /min VEE ([facility]) PATIENT HERE FOR FOLLOW UP Diastolic blood pressure 62 mm[Hg] 62 mm[Hg] VEE ([facility]) PATIENT HERE FOR FOLLOW UP Systolic blood pressure 98 mm[Hg] 98 mm[Hg] G REENWAY ([facility]) PATIENT HERE FOR FOLLOW UP Patient Treatment Plan of Care Planned Activity Planned Date Details Description Data Source (s) ferrous sulfate 325 MG 09/23/2019 12:00:00 VEE ([place] Oral Tablet [facility]) [facility] Vitamin D3 1000UNIT 07/29/2019 12:00:00 VEE ([place] Oral Tablet Chewable [facility]) Amoxicillin 500 MG Oral 07/14/2018 12:00:00 VEE ([place] Tablet AM [facility]) Betadine 5% External 04/18/2018 12:00:00 VEE ([place] Solution [facility]) 28-0.8MG Oral 03/13/2018 12:00:00 VEE ([place] Tablet [facility]) 28-0.8MG Oral 09/18/2017 12:00:00 VEE ([place] Tablet [facility]) [facility] Iron 325 (65 Fe)MG 09/18/2017 12:00:00 VEE (Susan Scherer Oral Tablet AM EDT [facility])
[2020-08-17 22:06] LABS: BASO % 0.8 % (0-2.0); EOS % 1.4 % (0-4.5); HEMATOCRIT 34.5 % (32.4-45.2); HEMOGLOBIN 11.4 GM/dL (10.7-15.3); LYMPH % 34.9 % (8-40); MCH 28.9 pg (25.7-33.7); MCHC 32.9 g/dl (32.0-36.0); MEAN CELL VOLUME 87.8 fl (80-96); NEUT % 53.9 % (42.8-82.8); PLATELET COUNT 234 K/MM3 (134-434); RBC 3.93 M/mm3 (3.60-5.2); WHITE BLOOD COUNT 5.3 K/mm3 (4.0-10.0)
[2020-08-17 22:12] VITALS: BMI 23.5
[2020-08-17 22:17] LABS: INR 1.03 (0.83-1.09); PROTHROMBIN TIME (PATIENT) 12.1 SEC (9.7-13.0)
[2020-08-17 22:20] LABS: ACTIVATED PTT 26.5 SECONDS (25.2-36.5)
[2020-08-17 22:26] LABS: BLOOD UREA NITROGEN 12.2 mg/dL (7-18); CALCIUM 8.4 mg/dL (8.5-10.1); CREATININE 0.7 mg/dL (0.55-1.3); POTASSIUM 3.9 mmol/L (3.5-5.1)
--- NOTE | 2020-08-17 22:47 | HP ---
Past Medical History - Admission Chief Complaint: Labor pain History of Present Illness: 40 yo @ 40.2 weeks gestation, EDC 08/15/20, presents c/o labor pain. Upon admission she was 3cm dilated with intact membrane. History Source: Patient Limitations to Obtaining History: No Limitations - Past Medical History ...: 3 ...Para: 2 ...Term: 2 ...: 0 ...Spon : 0 ...Induced : 0 ...Living Children: 2 ...Multiple Gestation: 0 ...EDC by Sono: 08/15/20 - Past Surgical History Past Surgical History: Yes: None Hx Myomectomy: No Hx Transabdominal Cerclage: No - Smoking History Smoking history: Never smoked Have you smoked in the past 12 months: No - Alcohol/Substance Use Hx Alcohol Use: No - Social History Usual Living Arrangement: Yes: With Spouse History of Recent Travel: No Home Medications - Allergies Allergies/Adverse Reactions: Allergies Allergy/AdvReac Type Severity Reaction Status Date / Time No Known Allergies Allergy Verified 08/17/20 18:36 - Home Medications Home Medications: Ambulatory Orders NK [No Known Home Medication] 08/17/20 Family Medical History Family History: Unremarkable Review of Systems - Review of Systems Constitutional: reports: No Symptoms Eyes: reports: No Symptoms HENT: reports: No Symptoms Neck: reports: No Symptoms Cardiovascular: reports: No Symptoms Respiratory: reports: No Symptoms Gastrointestinal: reports: No Symptoms Genitourinary: reports: Pain Musculoskeletal: reports: No Symptoms Integumentary: reports: No Symptoms Neurological: reports: No Symptoms Endocrine: reports: No Symptoms Psychiatric: reports: No Symptoms Pain Intensity: 4 Physical Exam - Maternity Vital Signs: Vital Signs Temperature 98.0 F 08/17/20 22:00 Pulse Rate 76 08/17/20 22:00 Respiratory Rate 20 08/17/20 22:00 Blood Pressure 98/61 08/17/20 22:00 O2 Sat by Pulse Oximetry (%) Constitutional: Yes: Well Nourished Eyes: Yes: Conjunctiva Clear HENT: Yes: Atraumatic Neck: Yes: Supple Cardiovascular: Yes: Regular Rate and Rhythm Breast(s): Yes: WNL - Abdominal Exam/OB Number of Fetuses: Single Presentation: Vertex - Vaginal Exam/OB Dilatation (cm): 4 Effacement (%): 70 Amniotic Membrane Status: Ruptured Amniotic Fluid: Yes: Clear Presentation: Vertex/Position Station: -2 - Physical Exam Extremities: Yes: WNL ...Motor Strength: WNL Psychiatric: Yes: Alert, Oriented - Labs Lab Results: CBC, BMP 08/17/20 21:30 08/17/20 21:30 Problem List - Problems (1) 40 weeks gestation of Code(s): Z3A.40 - 40 WEEKS GESTATION OF (2) Pain during labor Code(s): O99.89 - OTH DISEASES AND CONDITIONS COMPL PREG/CHLDBRTH; R52 - PAIN, UNSPECIFIED Assessment/Plan 4o weeks gestation Pain in labor Admit to L&D Analgesia as needed Anticipate
[2020-08-18] MEDS: DEXTROSE 5%-LACTATED RINGERS 1,000 ML IV SCH ×2 (03:00→07:37)
[2020-08-18] MEDS ORDERED: BUTORPHANOL TARTRATE 1 MG/ML VIAL IVPB ONE (04:00)
[2020-08-18] MEDS ORDERED: PROMETHAZINE HCL 25 MG/1 ML VIAL IVPB ONE (04:00)
[2020-08-18] MEDS ORDERED: PROMETHAZINE HCL 25 MG/1 ML VIAL ONE (04:05)
[2020-08-18] MEDS ORDERED: BUTORPHANOL TARTRATE 2 MG/ML VIAL ONE (04:05)
[2020-08-18] MEDS ORDERED: OXYTOCIN 30 UNITS in 0.9% NS 30 UNIT/500 ML INFUS.BAG IVPB ONE (06:22)
[2020-08-18] MEDS ORDERED: OXYTOCIN 30 UNITS in 0.9% NS 30 UNIT/500 ML INFUS.BAG IVPB SCH (06:25)
[2020-08-18] MEDS: ELECTROLYTE-148 SOLN 1,000 ML IV SCH ×3 (07:30→15:11)
[2020-08-18] MEDS ORDERED: FENTANYL/BUPIVACAINE/NS/PF - PCEA - 50 ML DISP.SYRIN EP ONE ×2 (09:36→14:59)
[2020-08-18] MEDS ORDERED: PCA PUMP NR ONE (09:36)
[2020-08-18] MEDS: FENTANYL/BUPIVACAINE/NS/PF - PCEA - 50 ML DISP.SYRIN EP SCH ×2 (10:25→15:10)
[2020-08-18] MEDS ORDERED: NALOXONE HCL 0.4 MG/ML VIAL IVPUSH PRN (11:54)
[2020-08-18] MEDS ORDERED: OXYTOCIN 20 UNITS in 0.9% NS 20 UNIT/1,000 ML INFUS.BAG IV ONE (16:17)
[2020-08-18] MEDS ORDERED: BENZOCAINE 28 GM HEMORRHOIDAL OINTMENT TP PRN (17:09)
[2020-08-18] MEDS ORDERED: WITCH HAZEL 50% (TUCKS) 40 PAD/JAR PAD TP PRN (17:09)
[2020-08-18] MEDS ORDERED: BISACODYL 10 MG SUPP.RECT RC PRN (17:09)
[2020-08-18] MEDS ORDERED: BENZOCAINE 20% 57 GM BOTTLE TP PRN (17:09)
[2020-08-18] MEDS ORDERED: METHYLERGONOVINE MALEATE 0.2 MG/1 ML AMP IM PRN (17:09)
--- NOTE | 2020-08-18 17:13 | PN ---
Delivery - Delivery Vaginal Delivery: Spontaneous Type of Anesthesia: Epidural Episiotomy/Laceration: 2nd degree EBL (cc): 300 Delivery, Single - [place] Feeding Plan Initial Plan: Elected not to breastfeed exclusively throughout hospitalization Remarks - Remarks Remarks: Normal spontaneous vaginal delivery of a live infant over second degree laceration. Nose / Oropharynx suctioned @ perineum. Nuchal cord x 2 clamped and cut. Baby handed to nurse. Placenta expelled spontaneously intact. Laceration repaired with 2.0 Chromic. Mother in stable condition.
[2020-08-18] MEDS ORDERED: OXYTOCIN 20 UNITS in 0.9% NS 20 UNIT/1,000 ML INFUS.BAG IV SCH (17:15)
[2020-08-18 18:11] LABS: CORD HCO3 22.6 mmHg (20-29); CORD pH 7.223 (7.14-7.44)
[2020-08-18 18:13] LABS: CORD BASE EXCESS -5.8 mmol/L (0-2); CORD HCO3 20.5 mmHg (20-29); CORD PCO2 42.8 mmHg (30-78); CORD pH 7.298 (7.14-7.44)
[2020-08-18] MEDS: ACETAMINOPHEN 325 MG TABLET (FP) PO PRN (22:13)
[2020-08-18] MEDS: IBUPROFEN 600 MG TABLET (FP) PO PRN (22:13)
[2020-08-18] MEDS: FERROUS SO4 325 MG TABLET (FP) PO SCH (22:13)
[2020-08-19] MEDS: IBUPROFEN 600 MG TABLET (FP) PO PRN ×2 (05:35→22:06)
[2020-08-19] MEDS: ACETAMINOPHEN 325 MG TABLET (FP) PO PRN ×2 (05:35→22:05)
[2020-08-19 08:58] LABS: BASO % 0.3 % (0-2.0); HEMATOCRIT 29.4 % (32.4-45.2); HEMOGLOBIN 9.7 GM/dL (10.7-15.3); LYMPH % 18.2 % (8-40); MCH 28.7 pg (25.7-33.7); MEAN CELL VOLUME 86.9 fl (80-96); MONO % 7.1 % (3.8-10.2); NEUT % 73.4 % (42.8-82.8); PLATELET COUNT 186 K/MM3 (134-434); RBC 3.38 M/mm3 (3.60-5.2); RDW 14.6 % (11.6-15.6); WHITE BLOOD COUNT 8.8 K/mm3 (4.0-10.0)
[2020-08-19] MEDS: FERROUS SO4 325 MG TABLET (FP) PO SCH ×2 (09:24→22:05)
[2020-08-19] MEDS: PRENATAL VITAMINS W/ FOLIC ACID TABLET (FP) PO SCH (09:24)
--- NOTE | 2020-08-19 15:36 | PN ---
Post Progress Note - Subjective Subjective: 40 yo Para 3 status post vaginal delivery, seen and evaluated. She's doing well. Post Day: 1 Type of Delivery: Vital Signs: Vital Signs Temperature 98.4 F 08/19/20 13:42 Pulse Rate 73 08/19/20 13:42 Respiratory Rate 20 08/19/20 13:42 Blood Pressure 106/64 08/19/20 13:42 O2 Sat by Pulse Oximetry (%) 100 08/18/20 17:45 Breast Exam: Yes: Soft Uterus: Yes: Fundus Firm Abdomen/GI: Yes: Abdomen soft, Tolerating PO Lochia: Yes: Rubra Lochia, amount: Moderate Extremities: Yes: Calves non-tender Perineum: Yes: Laceration (Healing) Activity: Ambulating - Labs Labs: CBC WBC 8.8 K/mm3 (4.0-10.0) 08/19/20 07:50 RBC 3.38 M/mm3 (3.60-5.2) L 08/19/20 07:50 Hgb 9.7 GM/dL (10.7-15.3) L 08/19/20 07:50 Hct 29.4 % (32.4-45.2) L 08/19/20 07:50 MCV 86.9 fl (80-96) 08/19/20 07:50 MCH 28.7 pg (25.7-33.7) 08/19/20 07:50 MCHC 33.0 g/dl (32.0-36.0) 08/19/20 07:50 RDW 14.6 % (11.6-15.6) 08/19/20 07:50 Plt Count 186 K/MM3 (134-434) D 08/19/20 07:50 MPV 9.0 fl (7.5-11.1) 08/19/20 07:50 Absolute Neuts (auto) 6.4 K/mm3 (1.5-8.0) 08/19/20 07:50 Neutrophils % 73.4 % (42.8-82.8) D 08/19/20 07:50 Lymphocytes % 18.2 % (8-40) D 08/19/20 07:50 Monocytes % 7.1 % (3.8-10.2) 08/19/20 07:50 Eosinophils % 1.0 % (0-4.5) 08/19/20 07:50 Basophils % 0.3 % (0-2.0) 08/19/20 07:50 Nucleated RBC % 0 % (0-0) 08/19/20 07:50 Problem List - Problems (1) 40 weeks gestation of Code(s): Z3A.40 - 40 WEEKS GESTATION OF (2) Pain during labor Code(s): O99.89 - OTH DISEASES AND CONDITIONS COMPL PREG/CHLDBRTH; R52 - PAIN, UNSPECIFIED (3) Status post vaginal delivery Code(s): HUA5416 - Assessment/Plan Status post normal vaginal delivery Stable Continue routine post op care
[2020-08-19] MEDS ORDERED: SENNOSIDES/DOCUSATE COMBO (SENNA PLUS) TABLET (UD) PO PRN (22:00)
[2020-08-20] MEDS: IBUPROFEN 600 MG TABLET (FP) PO PRN (09:05)
[2020-08-20] MEDS: ACETAMINOPHEN 325 MG TABLET (FP) PO PRN (09:06)
[2020-08-20] MEDS: PRENATAL VITAMINS W/ FOLIC ACID TABLET (FP) PO SCH (09:07)
[2020-08-20] MEDS: FERROUS SO4 325 MG TABLET (FP) PO SCH (09:07)
--- NOTE | 2020-08-20 11:04 | DS ---
Physical Exam-[employer] Vital Signs: Vital Signs Temperature 98.2 F 08/19/20 22:00 Pulse Rate 72 08/19/20 22:00 Respiratory Rate 20 08/19/20 22:00 Blood Pressure 96/67 08/19/20 22:00 O2 Sat by Pulse Oximetry (%) 100 08/18/20 17:45 Constitutional: Yes: Well Nourished Eyes: Yes: Conjunctiva Clear HENT: Yes: Atraumatic Neck: Yes: Supple Cardiovascular: Yes: Regular Rate and Rhythm Respiratory: Yes: Regular Gastrointestinal: Yes: Normal Bowel Sounds Pelvis: Yes: WNL External Genitalia: Yes: Normal Vaginal Exam: Yes: Bleeding Cervix: Yes: Bleeding Uterus: Yes: Firm ....Post : Yes: Uterus firm, Moderate lochia serosa Breast(s): Yes: WNL Musculoskeletal: Yes: WNL Extremities: Yes: WNL Neurological: Yes: Alert, Oriented ...Motor Strength: WNL Psychiatric: Yes: Alert, Oriented Labs: CBC, BMP 08/19/20 07:50 08/17/20 21:30 Delivery - Delivery Vaginal Delivery: Spontaneous Type of Anesthesia: Epidural Episiotomy/Laceration: 2nd degree EBL (cc): 300 Delivery, Single - Stages of Labor Date 1st Stage Initiatied: 08/18/20 Time 1st Stage Initiated: 00:00 Date 2nd Stage Initiated: 08/18/20 Time 2nd Stage Initiated: 16:15 Date of Delivery: 08/18/20 Time of Delivery: 16:44 Time Placenta Delivered: 16:50 - Condition of Infant 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 Present: No Infant Gender: Male Weight: 7 lb 9 oz Total Hours ROM (Hrs/Mins): 18/55 - 1 Minute Total Score: 5 5 Minutes Total Score: 8 - [place] Feeding Plan Initial Plan: Elected not to breastfeed exclusively throughout hospitalization Discharge Summary Problems reviewed: Yes Reason For Visit: LABOR ADMIT Current Active Problems 40 weeks gestation of (Acute) Pain during labor (Acute) Status post vaginal delivery (Acute) Procedures: Principal: Normal spontaneous vaginal delivery Hospital Course: Routine care Health Concerns: None Plan of Treatment: Analgesia as needed F/U with MD in 6 months Goals: Resume regular activities in 4-6 weeks Condition: Good - Instructions Diet, Activity, Other Instructions: Regular diet No douching, no sexual intercourse x 4 weeks F/U with MD in 6 weeks Disposition: HOME - Home Medications Comprehensive Discharge Medication List: Ambulatory Orders NK [No Known Home Medication] 08/17/20
[2020-08-20 12:00] VITALS: BP 130/80; PULSE 85; TEMP 98.6
== END 2020-08-20 12:50 | disposition home or self-care (01) | DRG 560 ==
LOC: JDEL 17:44 → JLDR 19:40 → J3W 08-18 20:20
PROVIDERS: ADMIT Obstetrics & Gynecology; ATTEND Obstetrics & Gynecology
PROC: 10E0XZZ Delivery of Products of Conception, External Approach (ICD-10-PCS; principal; 2020-08-18)
PROC: 0KQM0ZZ Repair Perineum Muscle, Open Approach (ICD-10-PCS; 2020-08-18)
DX: O48.0 Post-term pregnancy (principal); O70.1 Second degree perineal laceration during delivery; O69.81X0 Labor and delivery complicated by cord around neck, without compression, not applicable or unspecified; O99.89 Other specified diseases and conditions complicating pregnancy, childbirth and the puerperium; R52 Pain, unspecified; Z3A.40 40 weeks gestation of pregnancy; Z37.0 Single live birth; R76.11 Nonspecific reaction to tuberculin skin test without active tuberculosis
CPT/HCPCS: 36415; 36600; 59409; 80048; 82803; 85025; 85610; 85730; 86780; 86850; 86900; 86901; U0003